=== PATIENT | female | born 1950 | race Caucasian/White ===

== ENCOUNTER 2025-05-01 13:06 | Outpatient (AMB) | payer MEDICARE, SELFPAY ==
--- NOTE | 2025-05-01 13:08 | MHC.OFFVIS ---
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: No Accompanied by: Spouse Allergies adhesive Adverse Reaction (Severe, Verified 05/01/25 13:12) Rash Medication List - Last Reconciled 05/01/25 by Gayle Leoen LPN allopurinol 300 mg PO DAILY apixaban (Eliquis) 5 mg PO BID atorvastatin (Lipitor) 40 mg PO BEDTIME calcitriol 0.5 mcg PO DAILY diltiazem HCl CD (Cardizem CD) 120 mg PO DAILY dulaglutide (Trulicity) 1.5 mg subcut QWEEK empagliflozin (Jardiance) 10 mg PO DAILY fluticasone propion-salmeterol 250-50 mcg/dose (Advair Diskus) 1 inh inhalation BID insulin degludec (Tresiba FlexTouch U-100 insulin) 30 units subcut BEDTIME insulin glargine U-300 conc (Toujeo Max U-300 SoloStar) 20 units subcut BEDTIME insulin lispro (Humalog KwikPen (U-100) Insulin) 1 sliding scale dose subcut USEASDIRECTD levothyroxine 150 mcg PO DAILY lidocaine 4% 2 patches topical DAILY PRN metoprolol succinate ER 25 mg PO BID omeprazole 20 mg PO DAILY pantoprazole 40 mg PO DAILY polyethylene glycol 3350 (Miralax) 17 grams PO DAILY torsemide 60 mg PO DAILY tramadol 25 mg PO Q6H PRN HPI HPI Bilateral SI Pain: Details: History of Present Illness The patient is a 75-year-old female presenting with chronic low back pain. The pain has persisted for 20 years, described as aching and stabbing, with an intensity of 8 to 9 out of 10, exacerbated by movements. She ambulates with a walker. She has undergone knee replacement surgeries and tried various therapies, including physical therapy and chiropractic manipulation, with some relief. Epidural injections have been less effective over time. The premedication for injections provides temporary relief, but the steroid does not sustain the effect. Pain radiates to the buttocks, upper legs, and occasionally the neck. The patient has a history of knee osteoarthritis and a fracture in her left arm from a fall. No imaging was done for her back at the time of the fall. Pain worsens when standing for more than 30 seconds and improves when sitting or reclining. She leans against moncada to alleviate pain while walking. Spinal stenosis is suspected based on symptoms, but no recent imaging has been done. Pain Description - Onset: 20 years ago - Quality: Aching and stabbing - Intensity: 8 to 9 out of 10 - Location: Lower back, radiating to buttocks, upper legs, and occasionally neck - Exacerbating factors: Movement, standing for more than 30 seconds - Relieving factors: Sitting, reclining, leaning against moncada - Interference: Difficulty walking, requires a walker Physical Exam - Musculoskeletal: Tenderness in the lower back region, particularly in the sacroiliac area Pain Management - Affect: Pain significantly impacts daily activities and mobility - Analgesia: Epidural injections with diminishing effectiveness; premedication provides temporary relief - Activities of Daily Living: Difficulty standing and walking, uses a walker, pain alleviated by sitting or reclining [facility] Medical History (Updated 05/01/25 @ 13:59 by Geo Stark MD) Hypertension GERD (gastroesophageal reflux disease) Afib Hyperlipidemia Hypothyroid Diabetes Sacroiliitis Physical Exam Vital Signs: Last Vital Signs Pulse 96 05/01/25 13:10 Resp 16 05/01/25 13:10 BP 100/56 L 05/01/25 13:10 Pulse Ox 96 05/01/25 13:10 Oxygen Delivery Method Room Air 05/01/25 13:10 BMI result Body Mass Index 39.5 Assessment & Plan Assessment & Plan (1) Lumbar spinal stenosis: Code(s): M48.061 - Spinal stenosis, lumbar region without neurogenic claudication Category: Medical (2) Sacroiliitis: Code(s): M46.1 - Sacroiliitis, not elsewhere classified Category: Medical Plan Plan Patient was informed and verbally consented to the use of an ambient scribe for clinic note documentation during this visit. 1. Chronic Low Back Pain - Consider MRI to evaluate for spinal stenosis and other potential causes of pain. - Discussed potential use of nerve stimulator for pain management. - Continue current pain management strategies, including epidural injections, while exploring additional options. 2. Sacroiliac Joint Pain - Evaluate effectiveness of previous SI joint injections and consider further interventions. - Consider imaging to differentiate between SI joint and other sources of pain. 3. Spinal Stenosis (Suspected) - MRI recommended to confirm diagnosis and guide treatment plan. - Discussed potential treatment strategies if spinal stenosis is confirmed. Discussion Notes I discussed with the patient the potential diagnosis of spinal stenosis and the need for an MRI to confirm this. We reviewed the possibility of using a nerve stimulator for pain management, which could provide relief for 6 to 12 months if effective. The patient was informed about the differences in treatment strategies for spinal stenosis versus sacroiliac joint pain. We also discussed the logistics of obtaining an MRI and the potential need for follow-up with Dr. Delgado. The patient deferred the PNS trial option at this time due to her upcoming move to [place] and she would prefer to pursue the nerve stimulator with a physician in [place] instead. Patient Instructions - Schedule an MRI to evaluate the cause of back pain. - Consider the use of a nerve stimulator if recommended by the physician. - Continue current pain management strategies and follow up with Dr. Delgado as needed. Orders: Orders MR lumbar spine wo con 05/01/25 M48.061 - Spinal stenosis, lumbar region without neurogenic claudication Coding Level of Care Code New Pt Level 4 (63994) Diagnoses Lumbar spinal stenosis M48.061 Sacroiliitis M46.1
[2025-05-01 13:10] VITALS: BP 100/56; PULSE 96; RESP 16; O2SAT 96; BMI 39.5
--- OUTSIDE RECORDS SUMMARY | 2025-05-01 15:19 | XMS_ITS | Encounter Summary ---
Author Organization [facility] Address [address] [place] [address] Phone Care Team Providers Care Screen Roller Name Role Phone Cole Ott MD Primary Care Provider + [phone] Gabby Bell MD Primary Care Provider + [phone] Gabby Bell MD Unavailable [phone] Diana Wren OT Unavailable [phone] Diana Wren OT Unavailable [phone] Diana Wren OT Unavailable [phone] Shaji Zeng MD Unavailable [phone] Encounter Details Date Type Department Care Team (Late st Contact Info) Description 01/03/2021 Procedure Pass [facility] [address] [place] [address] Social History Tobacco Use Types Packs/Day Years Used Date Smoking Tobacco: Never Smokeless Tobacco: Never Alcohol Use Standard Drinks/Week Comments Yes 0 (1 standard drink = 0.6 oz pur e alcohol) rare Comments No Sex and Gender Information Value Date Recorded Sex Assigned at Female 11/17/2020 5:48 PM EDT Legal Sex Female 10:00 PM EDT Gender Identity Female 11/17/2020 5:48 PM EDT Sexual Orientation Lesbian or Mohamud 11/28/2020 9: 37 AM EDT 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 [place] [address] 06/12/2025 12:40 PM EDT Office Visit [facility] [address] [facility] 3rd Floor, [address] [place] [address] Goran Swartz MD [address] [place] [address], [address] [address] 08/29/2025 10:20 AM EST Office Visit [facility] [address] [facility] 3rd Floor, [address] [place] [address] Goran Swartz MD [address] [place] [address], [address] [address] 09/18/2025 1:20 PM EST Office Visit [facility] [address] [place] [address] Kit Anthony DO [address] [place] [address] documented as of this encounter Visit Diagnoses Not on filedocumented in this encounter Additional Health Concerns Infection Onset Date Last Indicated Resolved Time 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 Infection Utility 11/01/2013 11/01/2013 10/08/2022 1:42 A M EST CoV-Risk Comment:Per Ambulatory Triage Form 10/01/2021 10/01/202110/11 1:24 AM EST CoV-Risk Comment:Per Ambulatory Triage Form 12/24/2021 12/24/202101/04 1:22 AM EDT CoV-Risk 12/12/2022 12/12/2022 12/23/2022 1:22 AM EDT CoV-Risk Comment:Per note documentation 11/01/2023 11/01/2023 12:21 PM EDT documented as of this encounter Care Teams Screen Roller Relationship Specialty Start Date End Date Cole Ott MD [address] [place] [address] [email or web address] PCP - General Family Medicine 11/17/20 04/22/21 Gabby Bell MD [address] [address] PCP - General Family Medicine 04/23/21 Gabby Bell MD [address] [address] Insurance Assigned Provider 11/28/23 Diana Wren, OT [address] [place] [address] Transitions Senior Director Of StrategyHod Carrier Therapy 03/18/23 Diana Wren, OT [address] [place] [address] Transitions Senior Director Of StrategyHod Carrier Therapy 08/03/23 Diana Wren, OT [address] [place] [address] [email or web address] Transitions Senior Director Of StrategyHod Carrier Therapy 11/02/2307/17 Shaji Zeng MD [address] [facility] [address] [place] [address] Orthopedic Surgery 02/08/25 documented as of this encounter Additional Source Comments The information contained in this document represents components of the legal health record. It is not the complete legal health record.[facility]
--- OUTSIDE RECORDS SUMMARY | 2025-05-01 15:21 | XMS_ITS | Encounter Summary ---
Author Organization [facility] Address [address] [place] [address] [place] [address] Phone Care Team Providers Care Rock Climbing Team Member Name Role Phone Gabby Bell MD Primary Care Provider [phone] Gabby Bell MD Unavailable [phone] Diana Wren OT Unavailable [phone] Diana Wren OT Unavailable [phone] Diana Wren OT Unavailable [phone] Shaji Zeng MD Unavailable [phone] Encounter Details Date Type Department Care Team (Late Contact Info) Description 11/05/2021 Procedure Pass 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 [place] [address] 06/12/2025 12:40 PM EDT Office Visit [facility] [address] [facility] 3rd [facility], [address] [place] [address] Goran Swartz MD 22 [facility], [address] [address] 08/29/2025 10:20 AM EST Office Visit [facility] [address] [facility] 3rd Floor, [address] [place] [address] Goran Swartz MD [address] [place] [address], [address] [address] 09/18/2025 1:20 PM EST Office Visit [facility] [address] [place] [address] Kit Anthony DO 22 [place] [address] documented as of this encounter Visit Diagnoses Not on filedocumented in this encounter Additional Health Concerns Infection Onset Date Last Indicated Resolved Time 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 Infection Utility 11/01/2013 11/01/2013 10/08/2022 1:42 A M EST CoV-Risk Comment:Per Ambulatory Triage Form 12/24/2021 12/24/202101/04 1:22 AM EDT CoV-Risk 12/12/2022 12/12/2022 12/23/2022 1:22 AM EDT CoV-Risk Comment:Per note documentation 11/01/2023 11/01/2023 12:21 PM EDT documented as of this encounter Care Teams Rock Climbing Team Member Relationship Specialty Start Date End Date Gabby Bell MD [address] [address] [email or web address] PCP - General Family Medicine 04/23/21 Gabby Bell MD [address] [address] Insurance Assigned Provider 11/28/23 Diana Wren, OT 30 [place] [address] [email or web address] Transitions Blackjack DealerRefinery Technician Therapy 03/18/23 Diana Wren, OT [address] [place] [address] [email or web address] Transitions Blackjack DealerRefinery Technician Therapy 08/03/23 Diana Wren, OT [address] [place] [address] Transitions Blackjack DealerRefinery Technician Therapy 11/02/2307/17 Shaji Zeng MD [address] [place] [address] Orthopedic Surgery 02/08/25 documented as of this encounter Additional Source Comments The information contained in this document represents components of the legal health record. It is not the complete legal health record.[facility]
--- OUTSIDE RECORDS SUMMARY | 2025-05-01 15:21 | XMS_ITS | Encounter Summary ---
Author Organization [facility] Address [address] [facility] [address] [place] [address] Phone Care Team Providers Care Venture Capitalist Name Role Phone Gabby Bell MD Primary Care Provider [phone] Gabby Bell MD Unavailable [phone] Diana Wren OT Unavailable [phone] Diana Wren OT Unavailable [phone] Diana Wren OT Unavailable [phone] Shaji Zeng MD Unavailable [phone] Reason for Visit * Reason Onset Date Comments Nausea 12/11/2022 Dizziness 12/11/2022 Encounter Details Date Type Department Care Team (Late st Contact Info) Description 12/11/2022 Nurse Triage [facility] Primary Care [address] [facility] [address] [place], [place] [id number] Gabby Bell MD [address] [facility] [address] [place] [address] [email or web address] Nausea; Dizziness Social History Tobacco Use Types Packs/Day Years Used Date Smoking Tobacco: Never Smokeless Tobacco: Never Alcohol Use Standard Drinks/Week Comments Yes 0 (1 standard drink = 0.6 oz pur e alcohol) occ Child or Family Care Answer Date Record ed Do you have problems with on e of the following making it difficult for you to work, study, or receive health care? No 09/03/2022 Education Answer Date Recorded Are you interested in help w ith more adult education (for example, completing high school, GED, job training, learning the Maori language, technical skills, or developing parenting skills)? No 09/03/2022 Food Answer Date Recorded Within the past 6 months we worried whether our food would run out before we got money to buy more. Never True 09/03/2022 Within the past 6 months the food we bought just didn't last and we didn't have enough money to get more. Never True Residential Stability Answer Date Recor ded What is your housing situation today? I have anne sing 09/03/2022 How many times have you move d in the past 12 months? Zero (I did not move) 09/03/2022 Paying for Meds Answer Date Recorded Do you have trouble paying for medicines? No 09/03/2022 Paying Utility Bills Answer Date Record ed Do you have trouble paying your heating or elect ricity bill? No 09/03/2022 Transportation Answer Date Recorded Has the lack of transportati on kept you from medical appointments or from getting medications? No 09/03/2022 Unemployment Answer Date Recorded Are you currently unemployed or working on a part-time or temporary basis, and looking for work? 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 Wish to be (Past 1 Month) No 023 5:58 PM EDT Mary Black, RN 2. Non-Specific Active Suici harvey Thoughts (Past 1 Month) No 12/12/2022 5:58 PM EDT Mary Black , RN 6. Suicidal Behavior (Lifetime) No 5:58 PM EDT Mary Black RN documented as of this encounter Progress Notes * Symone Agrawal RN - 12/15/2022 4:04 PM EDT Attempted to reach patient by phone. No answer. Left voicemail for patient to return phone call to office. Patient is scheduled to see Dr. Jefferson tomorrow, 12/16/22. * Gabby Bell MD - 12/15/2022 7:49 AM EDT Merline went to the ED and was told all her labs were normal. Her BNP was 3xULN which I realize is not uncommon for her but she goes in and out of acute CHF and I wonder if she may have been experiencing an exacerbation of her heart failure. Would you please call today to a) see how she is doing b)make sure she checks in with her railway signal technician re: cardioEliu vieyra and c) offer her an appointment here if indicated? Thank you * Gabby Bell MD - 12/12/2022 3:50 PM EDT Thank you!! * Sarah Carrasco RN - 12/12/2022 3:38 PM EDT Called pt back. Pt was able to take blood sugar and reports it was 108. Advised pt go to ED if still feeling unwell per PCP recommendation. Pt is open to going to ED. Will wait for spouse to get backand will head to ED within the next hour. * Gabby Bell MD - 12/12/2022 10:17 AM EDT Thank you. If you don't hear from her by early afternoon, would you please call again? She has *many* reasons she could be ill, and if she feels she likely needs to be hospitalized then is NOT theplace for her to be evaluated but rather the ED. * Sarah Carrasco RN - 12/12/2022 9:56 AM EDT Spoke to pt regarding ongoing nausea since Friday 12/08. Reports malaise, nausea, no energy, haven't eaten in days. Pt states she is trying to stay hydrated and is not vomiting. Gallbladder removed 6 weeks ago, in ED 2 weeks ago for back pain. Advised pt to test blood sugar while on the phone withnurse. She was unable to find her kit. Advised pt go to to have blood sugar tested. Pt states she does not feel she will make it through the weekend without being hospitalized. Advised pt go to immediately. Pt wants to be seen in office today. Advised pt that no appts available. Pt states shewill not go to and will call back when she finds her test kit with blood sugar. Will update PCP. Nurse Triage Encounter Note Reason for Triage Merline Amor contacted office for Nausea,Dizziness Call Disposition Schedule Visit With 3 Business Days Patient/caregiver understands and will follow disposition: Patient/caregiver understands and will follow care advice: Disposition Comments: Protocols used: Care Advice Given Care Advice No Care Advice given for this encounter. Patient will call back with additional questions or if symptoms change or worsen Sarah Carrasco RN Reason for Disposition and Assessment Reason for Disposition Nausea lasts > 1 week Answer Assessment - Initial Assessment Questions 1. NAUSEA SEVERITY: How bad is the nausea? (e.g., mild, moderate, severe; dehydration, weight loss) - MILD: loss of appetite without change in eating habits - MODERATE: decreased oral intake without significant weight loss, dehydration, or malnutrition - SEVERE: inadequate caloric or fluid intake, significant weight loss, symptoms of dehydration Trying to stay hydrated, haven't eaten, not vomiting, feels as though gut is indistress 2. ONSET: When did the nausea begin? Friday 12/08 3. VOMITING: Any vomiting? If Yes, ask: How many times today? No vomiting 4. RECURRENT SYMPTOM: Have you had nausea before? If Yes, ask: When was the last time? What happened that time? Has happened before but feels nauseous intermittently 5. CAUSE: What do you think is causing the nausea? Galbladder removed 6 weeks ago, at [facility] 2 weeks ago for severe pain in back and right side- CT scan/ labs - unknown dx, Morphine for pain, D/c 6. : Is there any chance you are ? (e.g., unprotected intercourse, missed control pill, broken condom) NA Protocols used: [id number] * Bear Knapp - 12/11/2022 3:18 PM EDT Pt calling back to talk with nurse in regards to on going nausea * Ronda Tavarez - 12/11/2022 9:52 AM EDT Merline called to schedule an appointment. Merline stated she has been experiencing GI issues, nausea, dizziness for the past 3 days. Please contact and advise. documented in this encounter Plan of Treatment Upcoming Encounters Date Type Department Care Team (Late st Contact Info) Description 05/25/2025 4:30 PM EDT Office Visit [facility] Rheumatology [address] [place] [address] Emily Ireland MD [address] [facility], [address] [place] [address] [email or web address] 05/31/2025 10:20 AM EDT Office Visit [facility] [address] [facility] [address] [place] [address] Gabby Bell MD [address] [address] 06/12/2025 12:40 PM EDT Office Visit [facility] [address], [address] [place] [address] Goran Swartz MD [address] [place] [address] 08/29/2025 10:20 AM EST Office Visit [address], [address] [address] Goran Swartz MD [address] [place] [address] 09/18/2025 1:20 PM EST Office Visit [facility] [address] [place] [address] Kit Anthony DO [address] [place] [address] documented as of this encounter Visit Diagnoses Not on filedocumented in this encounter Additional Health Concerns Infection Onset Date Last Indicated Resolved Time CoV-Risk 12/12/2022 12/12/2022 12/23/2022 1:22 AM EDT CoV-Risk Comment:Per note documentation 11/01/2023 11/01/2023 12:21 PM EDT documented as of this encounter Care Teams Venture Capitalist Relationship Specialty Start Date End Date Gabby Bell MD [address] [address] PCP - General Family Medicine 04/23/21 Gabby Bell MD [address] [place] [address], [place] [address] Insurance Assigned Provider 11/28/23 Diana Wren, OT 30 [place] [address] Transitions Photoengraving Proofer ApprenticeMachine Set Up Therapy 03/18/23 Diana Wren, OT 30 [place] [address] Transitions Photoengraving Proofer ApprenticeMachine Set Up Therapy 08/03/23 Diana Wren, OT [address] [place] [address] Transitions Photoengraving Proofer ApprenticeMachine Set Up Therapy 11/02/2307/17 Shaji Zeng MD [facility] [address] [facility] [address] [place] [address] Orthopedic Surgery 02/08/25 documented as of this encounter Additional Source Comments The information contained in this document represents components of the legal health record. It is not the complete legal health record.[facility]
--- OUTSIDE RECORDS SUMMARY | 2025-05-01 15:21 | XMS_ITS | Encounter Summary ---
Author Organization [facility] Address [address] [place] [address] [place] [address] Phone Care Team Providers Care Supervisor Tan Room Name Role Phone Gabby Bell MD Primary Care Provider [phone] Gabby Bell MD Unavailable [phone] Diana Wren OT Unavailable [phone] Diana Wren OT Unavailable [phone] Diana Wren OT Unavailable [phone] Shaji Zeng MD Unavailable [phone] Encounter Details Date Type Department Care Team (Late st Contact Info) Description 11/04/2021 Ancillary Orders [facility],Outside Imaging [address] [place] [address] System, Provider Not In, PhD Partners [address] [address] Social History Tobacco Use Types Packs/Day Years [...] 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 Wish to be (Past 1 Month) No 022 8:19 PM EDT Lucho Pagan RN 2. Non-Specific Active Suici harvey Thoughts (Past 1 Month) No 11/04/2021 8:19 PM EDT Joseph Pagan RN 6. Suicidal Behavior (Lifetime) No 8:19 PM EDT Lucho Pagan RN documented as of this encounter Plan of Treatment Upcoming Encounters Date Type Department Care Team (Late st Contact Info) Description 05/25/2025 4:30 PM EDT Office Visit [facility] Rheumatology [address] [place] [address] Emily Ireland MD 22 [facility], [address] [place] [address] [email or web address] 05/31/2025 10:20 AM EDT Office Visit [facility] [place] [facility] 15 [facility] [address] [place] [address] Gabby Bell MD 15 [facility] [address] [place] [address] 06/12/2025 12:40 PM EDT Office Visit [facility] [address] Floor, [address] [place] [address] Goran Swartz MD 22 [facility], [address] [place] [address] 08/29/2025 10:20 AM EST Office Visit [facility] [address], [address] [place] [address] Goran Swartz MD 22 [facility], [address] [place] [address] 09/18/2025 1:20 PM EST Office Visit [facility] 22 [place] [address] Kit Anthony DO [address] [place] [address] [email or web address] documented as of this encounter Results * MRI Brain Outside (No Interpretation) (04/02/2017 12:00 AM EDT) Narrative SYSTEMGENERATED, DOCUMENTATION - 11/04/2021 1:58 PM EDT This study is for PACS storage only and not for interpretation. us Provider Not In System PhD IMG OUTSIDE IMAGING W /OUT INTERPRETATION Final Result documented in this encounter Visit Diagnoses Not on filedocumented [...] documented as of this encounter Care Teams Supervisor Tan Room Relationship Specialty Start Date End Date Gabby Bell MD [address] [address] [email or web address] PCP - General Family Medicine 04/23/21 Gabby Bell MD 15 [facility] 201 [place] [address] Insurance Assigned Provider 11/28/23 Diana Wren, OT 30 [place] [address] [email or web address] Transitions Market Research ManagerTable Games Dual Rate Supervisor Therapy 03/18/23 Diana Wren, OT 30 [place] [address] [email or web address] Transitions Market Research ManagerTable Games Dual Rate Supervisor Therapy 08/03/23 Diana Wren, OT 30 [place] [address] [email or web address] Transitions Market Research ManagerTable Games Dual Rate Supervisor Therapy 11/02/2307/17 Shaji Zeng MD [address] [place], [place] [address]anitra Mili [address] [address] Orthopedic Surgery 02/08/25 documented as of this encounter Additional Source Comments The information contained in this document represents components of the legal health record. It is not the complete legal health record.[facility]
--- OUTSIDE RECORDS SUMMARY | 2025-05-01 15:21 | XMS_ITS | Encounter Summary ---
Author Organization [facility] Address [address] [place] [address] [place] [address] Phone Care Team Providers Care Risk Advisor Name Role Phone Gabby Bell MD Primary Care Provider [phone] Gabby Bell MD Unavailable [phone] Diana Wren OT Unavailable [phone] Diana Wren OT Unavailable [phone] Diana Wren OT Unavailable [phone] Shaji Zeng MD Unavailable [phone] Encounter Details Date Type Department Care Team (Late st Contact Info) Description 11/04/2021 Ancillary Orders ,Outside Imaging 30 [place] [address] System, Provider Not In, PhD Partners [address] [address] Social History Tobacco Use Types Packs/Day Years [...] 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 file documented as of this encounter Functional Status * Calculated C-SSRS Risk Score (Lifetime/Recent) Answer Date of Assessment Author No Risk Indicated 11/04/2021 8:19 PM EDT Lucho Pagan RN * [place] Suicide Severity Rating Scale (Screener/Recent Self-Report) Question [...] Description 05/25/2025 4:30 PM EDT Office Visit [facility] Rheumatology [address] [place] [address] Emily Ireland MD 22 [facility], [address] [place] [address] [email or web address] 05/31/2025 10:20 AM EDT Office Visit [facility] [place] [facility] 15 [facility] [address] [place] [address] Gabby Bell MD 15 [facility] [address] [place] [address] 06/12/2025 12:40 PM EDT Office Visit [facility] [address] Floor, [address] [place] [address] Goran Swartz MD 22 [facility], [address] [place] [address] 08/29/2025 10:20 AM EST Office Visit [facility] [address], [address] [place] [address] Goran Swartz MD 22 [facility], [address] [place] [address] 09/18/2025 1:20 PM EST Office Visit [facility] 22 [place] [address] Kit Anthony DO [address] [place] [address] [email or web address] documented as of this encounter Results * MRI Brain Outside (No Interpretation) (06/04/2015 12:00 AM EDT) Narrative SYSTEMGENERATED, DOCUMENTATION - 11/04/2021 2:00 PM EDT This study is for PACS [...] documented as of this encounter Care Teams Risk Advisor Relationship Specialty Start Date End Date Gabby Bell MD [address] [address] [email or web address] PCP - General Family Medicine 04/23/21 Gabby Bell MD 15 [facility] 201 [place] [address] Insurance Assigned Provider 11/28/23 Diana Wren, OT 30 [place] [address] [email or web address] Transitions Atmospheric Physics ProfessorFruit Farmworker Therapy 03/18/23 Diana Wren, OT 30 [place] [address] [email or web address] Transitions Atmospheric Physics ProfessorFruit Farmworker Therapy 08/03/23 Diana Wren, OT 30 [place] [address] [email or web address] Transitions Atmospheric Physics ProfessorFruit Farmworker Therapy 11/02/2307/17 Shaji Zeng MD [address] [place], [place] [address]anitra Mili [address] [address] Orthopedic Surgery 02/08/25 documented as of this encounter Additional Source Comments The information contained in this document represents components of the legal health record. It is not the complete legal health record.[facility]
--- OUTSIDE RECORDS SUMMARY | 2025-05-01 15:21 | XMS_ITS | Encounter Summary ---
Author Organization [facility] Address [address] [place] [address] [place] [address] Phone Care Team Providers Care Combat Control Manager Name Role Phone Gabby Bell MD Primary Care Provider [phone] Gabby Bell MD Unavailable [phone] Diana Wren OT Unavailable [phone] Diana Wren OT Unavailable [phone] Diana Wren OT Unavailable [phone] Shaji Zeng MD Unavailable [phone] Encounter Details Date Type Department Care Team (Late st Contact Info) Description 07/01/2022 Procedure Pass Non-Invasive Cardiology [address] [place] [address] Social History Tobacco Use Types Packs/Day Years [...] 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 [place] [address] 06/12/2025 12:40 PM EDT Office Visit [facility] 22 [facility] 3rd Floor, [address] [place] [address] Goran Swartz MD 22 [facility], [address] [address] 08/29/2025 10:20 AM EST Office Visit [facility] [address] 3[address] Floor, [address] [place] [address] Goran Swartz MD [address] [place] [address], [address] [address] 09/18/2025 1:20 PM EST Office Visit [facility] 22 [place] [address] Kit Anthony DO 22 [place] [address] documented as of this encounter Visit Diagnoses Not on filedocumented in this encounter Additional Health Concerns Infection Onset Date Last Indicated Resolved Time 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 Infection Utility 11/01/2013 11/01/2013 10/08/2022 1:42 A M EST CoV-Risk 12/12/2022 12/12/2022 12/23/2022 1:22 AM EDT CoV-Risk Comment:Per note documentation 11/01/2023 11/01/2023 12:21 PM EDT documented as of this encounter Care Teams Combat Control Manager Relationship Specialty Start Date End Date Gabby Bell MD [address] [address] [email or web address] PCP - General Family Medicine 04/23/21 Gabby Bell MD [address] [address] Insurance Assigned Provider 11/28/23 Diana Wren, OT 30 [place] [address] [email or web address] Transitions Taping ForemanMatrix Repairer Therapy 03/18/23 Diana Wren, OT 30 [place] [address] [email or web address] Transitions Taping ForemanMatrix Repairer Therapy 08/03/23 Diana Wren, OT 30 [place] [address] [email or web address] Transitions Taping ForemanMatrix Repairer Therapy 11/02/2307/17 Shaji Zeng MD [facility] [employer] Mili [address] [address] Orthopedic Surgery 02/08/25 documented as of this encounter Additional Source Comments The information contained in this document represents components of the legal health record. It is not the complete legal health record.[facility]
--- OUTSIDE RECORDS SUMMARY | 2025-05-01 15:21 | XMS_ITS | Encounter Summary ---
Author Organization [facility] Address [address] [facility] [address] [place] [address] Phone Care Team Providers Care Kilnman Name Role Phone Gabby Bell MD Primary Care Provider [phone] Gabby Bell MD Unavailable [phone] Diana Wren OT Unavailable [phone] Diana Wren OT Unavailable [phone] Diana Wren OT Unavailable [phone] Shaji Zeng MD Unavailable [phone] Encounter Details Date Type Department Care Team (Latest Contact Info) Description 11/14/2021 Transcribe Orders [facility] 30 [place] [address] Kodi Hewitt MD 15 [facility] [address] [place], [place] [address] Stage 3b chronic kidney disease (Primary Dx) Social History Tobacco Use Types Packs/Day Years [...] 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 [address] [place] [address] Gabby Bell MD 15 [facility] [address] [place] [address] 06/12/2025 12:40 PM EDT Office Visit [facility] [address], [address] [place] [address] Gorna Swartz MD [address] [place] [address] 08/29/2025 10:20 AM EST Office Visit [facility] [address] 3rd [facility], [address] [address] Goran Swartz MD 22 [facility], [address] [address] 09/18/2025 1:20 PM EST Office Visit [facility] [address] [place] [address] Kit Anthony DO 22 [place] [address] documented as of this encounter Results * (ABNORMAL) TOTAL PROTEIN CREATININE RATIO, RANDOM URINE (11/14/2021 3:08 PM EDT) Pathologist [facility] URINE TOTAL PROTEIN 21.0 mg/dL [facility] URINE CREATININE 104 mg/dL [facility] URINE TP CRE RATIO 0.20(H) 0 - 0.19 [facility] Urine (Urine) 11/14/2021 3:0 8 PM EDT 11/14/2021 3:13 PM EDT us Kodi Hewitt MD URINE ORDERABLES Final Result Performing Organization Address City/[facility]/ZIP Co de Phone Number [address] [address] * (ABNORMAL) Parathyroid hormone (PTH) (11/14/2021 3:08 PM EDT) Pathologist [facility] PARATHYROID HORMONE 3(L) 15 - 65 pg/mL [facility] Blood 11/14/2021 3:08 PM EDT 11/14/2021 3:13 PM EDT us Kodi Hewitt MD LAB BLOOD ORDERABLES Final Resul t Performing Organization Address [facility]/ZIP Co de Phone Number [address] [address] * 25-OH vitamin D (11/14/2021 3:08 PM EDT) Pathologist [facility] 25 OH VIT D (TOTAL) 33 30 - 60 ng/mL [facility] Blood 11/14/2021 3:08 PM EDT 11/14/2021 3:14 PM EDT us Kodi Hewitt MD LAB BLOOD ORDERABLES Final Resul t Performing Organization Address [facility]/ZIP Co de Phone Number [address] [address] * (ABNORMAL) Renal panel (11/14/2021 3:08 PM EDT) SODIUM 137 133 - 146 mmol/L [facility] POTASSIUM 4.3 3.3 - 5.1 mmol/L [facility] CHLORIDE 101 96 - 108 mmol/L [facility] CO2 23 21 - 35 mmol/L [facility] GLUCOSE 108(H) 70 - 99 mg/dL [facility] BUN 24(H) 6 - 19 mg/dL [facility] CREATININE 1.10 0.5 - 1.5 mg/dL [facility] CALCIUM 10.1 8.4 - 10.3 mg/dL [facility] PHOSPHORUS 3.6 2.7 - 4.5 mg/dL [facility] ALBUMIN 3.7(L) 3.9 - 4.8 g/dL [facility] EGFR 54(L) >59 mL/min/1.7 3m2 [facility] Comment:Estimated glomerular filtration rate calculated using the CKD-EPI refit equation. 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 Infection Utility 11/01/2013 11/01/2013 10/08/2022 1:42 A M EST CoV-Risk Comment:Per Ambulatory Triage Form 12/24/2021 12/24/202101/04 1:22 AM EDT CoV-Risk 12/12/2022 12/12/2022 12/23/2022 1:22 AM EDT CoV-Risk Comment:Per note documentation 11/01/2023 11/01/2023 12:21 PM EDT documented as of this encounter Care Teams [place] Relationship Specialty Start Date End Date Gabby Bell MD [address] [place] [address] PCP - General Family Medicine 04/23/21 Gabby Bell MD [address] [address] Insurance Assigned Provider 11/28/23 Diana Wren, OT 30 [place] [address] Transitions Child Center AssistantCoating Mixer Tender Therapy 03/18/23 Diana Wren, OT 30 [place] [address] Transitions Child Center AssistantCoating Mixer Tender Therapy 08/03/23 Diana Wren, OT 30 [place] [address] Transitions Child Center AssistantCoating Mixer Tender Therapy 11/02/2307/17 Shaji Zeng MD [facility] Carolina Garces [address] [address] Orthopedic Surgery 02/08/25 documented as of this encounter Additional Source Comments The information contained in this document represents components of the legal health record. It is not the complete legal health record.[facility]
--- OUTSIDE RECORDS SUMMARY | 2025-05-01 15:21 | XMS_ITS | Encounter Summary ---
Author Organization [facility] Address [address] [place] [address] [place] [address] Phone Care Team Providers Care Physician Scientist Name Role Phone Gabby Bell MD Primary Care Provider [phone] Gabby Bell MD Unavailable [phone] Diana Wren OT Unavailable [phone] Diana Wren OT Unavailable [phone] Diana Wren OT Unavailable [phone] Shaji Zeng MD Unavailable [phone] Encounter Details Date Type Department Care Team (Late st Contact Info) Description 10/01/2021 Procedure Pass Non-Invasive Cardiology [address] [place] [address] Social History Tobacco Use Types Packs/Day Years [...] 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 [place] [address] 06/12/2025 12:40 PM EDT Office Visit [facility] 22 [facility] 3rd Floor, [address] [place] [address] Goran Swartz MD 22 [facility], [address] [address] 08/29/2025 10:20 AM EST Office Visit [facility] [address] 3[address] Floor, [address] [place] [address] Goran Swartz MD [address] [place] [address], [address] [address] 09/18/2025 1:20 PM EST Office Visit [facility] 22 [place] [address] Kit Anthony DO 22 [place] [address] documented as of this encounter Visit Diagnoses [...] documented as of this encounter Care Teams Physician Scientist Relationship Specialty Start Date End Date Gabby Bell MD [address] [address] [email or web address] PCP - General Family Medicine 04/23/21 Gabby Bell MD [address] [address] [email or web address] Insurance Assigned Provider 11/28/23 Diana Wren, OT 30 [place] [address] [email or web address] Transitions Line BuilderBoilermaker Welder Therapy 03/18/23 Diana Wren, OT [address] [place] [address] [email or web address] Transitions Line BuilderBoilermaker Welder Therapy 08/03/23 Diana Wren, OT [address] [place] [address] Transitions Line BuilderBoilermaker Welder Therapy 11/02/2307/17 Shaji Zeng MD [address] [place], [place] [address]anitra Mili [address] [address] Orthopedic Surgery 02/08/25 documented as of this encounter Additional Source Comments The information contained in this document represents components of the legal health record. It is not the complete legal health record.[facility]
--- OUTSIDE RECORDS SUMMARY | 2025-05-01 15:23 | XMS_ITS | Encounter Summary ---
Author Organization [facility] Address [address] [place] [address] Phone Care Team Providers Care Lymphedema Therapist Name Role Phone Gabby Bell MD Primary Care Provider [phone] Gabby Bell MD Unavailable [phone] Diana Wren OT Unavailable [phone] Diana Wren OT Unavailable [phone] Diana Wren OT Unavailable [phone] Shaji Zeng MD Unavailable [phone] Reason for Referral * MRI/CAT Scan - Closed Specialty Diagnoses / Procedures Referred By Anil caba Referred To Contact Radiology Diagnoses Other microscopic hematuria Calculus of kidney Procedures CT Abdomen/Pelvis Mariza Ojeda PA Phone: tel: fax: [email or web address] Referral ID Status Reason Start Date Expiration Date Visits Re quested Visits Authorized [id number] Closed 11/27/2021 11/27/2022 1 1 Encounter Details Date Type Department Care Team (Latest Contact Info) Description 11/27/2021 Transcribe Orders Virtual Department 30 [place] [address] Mariza Ojeda PA [address] [address] Other microscopic hematuria (Primary Dx); Calculus of kidney Social History Tobacco Use Types Packs/Day Years [...] 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 [place] [address] 06/12/2025 12:40 PM EDT Office Visit [facility] [address], [address] [place] [address] Goran Swartz MD 22 [facility], [address] [place] [address] 08/29/2025 10:20 AM EST Office Visit [facility] [address], [address] [place] [address] Goran Swartz MD 22 [facility], [address] [place] [address] 09/18/2025 1:20 PM EST Office Visit [facility] [address] [place] [address] Kit Anthony DO [address] [place] [address] [email or web address] documented as of this encounter Results * CT ABDOMEN/PELVIS WITHOUT CONTRAST (12/12/2021 3:46 PM EDT) Anatomical Region Laterality Modality Abdomen, Pelvis Computed Tomogra phy 12/12/2021 9:47 PM EDT Impressions 12/12/2021 9:57 PM EDT Calcifications in the renal sinuses likely almost entirely reflect vascular calcification, though this reduces sensitivity for tiny renal stones. Allowing for this, there may be a 6 cm nonobstructing stone in the left midpole. No hydronephrosis. Narrative 12/12/2021 9:[address] ABDOMEN/PELVIS WITHOUT CONTRAST TECHNIQUE: Multidetector-row CT of the abdomen and pelvis was performed without intravenous contrast using tailored dose modulation techniques. Images were reconstructed in the axial, coronal, and sagittal planes. COMPARISON: None ABSENCE OF INTRAVENOUS CONTRAST DECREASES SENSITIVITY FOR DETECTION OF FOCAL LESIONS AND VASCULAR PATHOLOGY. FINDINGS: A portion of the lateral most aspect of the right hemiabdomen is not included in the [id number] Lower Chest: Dense mitral annular calcifications. Partially imaged left atrial enlargement. Moderate bronchial wall thickening in the imaged lower lung zones Liver: Normal. No focal lesions by noncontrast CT. Biliary: Cholelithiasis. No biliary ductal dilatation. Spleen: No splenomegaly. Punctate splenic granulomata. Pancreas: Normal. No masses or ductal dilatation. Adrenal Glands: Normal. No nodules. Kidneys/Ureters: No evidence of solid mass or hydronephrosis. Extensive vascular calcifications a partially obscured tiny renal stones. Allowing for this, there may be a 6 mm nonobstructing stone in the left midpole (6:54, 4:78). Bowel: Normal. No dilatation or wall thickening. Peritoneum/Retroperitoneum: Normal. No masses, pneumoperitoneum, or fluid. Lymph Nodes: Normal. No lymphadenopathy. Pelvic Organs/Bladder: Normal. No mass. Vessels: Extensive vascular calcification. No abdominal aortic aneurysm. Bones/Soft Tissues: Degenerative changes. No destructive osseous lesions. Procedure Note Darrick Amaya MD - 12/12/2021 CT ABDOMEN/PELVIS WITHOUT CONTRAST TECHNIQUE: Multidetector-row CT of the abdomen and pelvis was performedwithout intravenous contrast using tailored dose modulation techniques.Images were reconstructed in the axial, coronal, and sagittal planes. COMPARISON: None ABSENCE OF INTRAVENOUS CONTRAST DECREASES SENSITIVITY FOR DETECTION OFFOCAL LESIONS AND VASCULAR PATHOLOGY. FINDINGS: A portion of the lateral most aspect of the right hemiabdomen is notincluded in the [id number] Lower Chest: Dense mitral annular calcifications. Partially imaged leftatrial enlargement. Moderate bronchial wall thickening in the imaged lowerlung zones Liver: Normal. No focal lesions by noncontrast CT. Biliary: Cholelithiasis. No biliary ductal dilatation. Spleen: No splenomegaly. Punctate splenic granulomata. Pancreas: Normal. No masses or ductal dilatation. Adrenal Glands: Normal. No nodules. Kidneys/Ureters: No evidence of solid mass or hydronephrosis. Extensivevascular calcifications a partially obscured tiny renal stones. Allowingfor this, there may be a 6 mm nonobstructing stone in the left midpole(6:54, 4:78). Bowel: Normal. No dilatation or wall thickening. Peritoneum/Retroperitoneum: Normal. No masses, pneumoperitoneum, orfluid. Lymph Nodes: Normal. No lymphadenopathy. Pelvic Organs/Bladder: Normal. No mass. Vessels: Extensive vascular calcification. No abdominal aortic aneurysm. Bones/Soft Tissues: Degenerative changes. No destructive osseouslesions. IMPRESSION: Calcifications in the renal sinuses likely almost entirely reflectvascular calcification, though this reduces sensitivity for tiny renalstones. Allowing for this, there may be a 6 cm nonobstructing stone in theleft midpole. No hydronephrosis. 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 Infection Utility 11/01/2013 11/01/2013 10/08/2022 1:42 A M EST CoV-Risk Comment:Per Ambulatory Triage Form 12/24/2021 12/24/202101/04 1:22 AM EDT CoV-Risk 12/12/2022 12/12/2022 12/23/2022 1:22 AM EDT CoV-Risk Comment:Per note documentation 11/01/2023 11/01/2023 12:21 PM EDT documented as of this encounter Care Teams Lymphedema Therapist Relationship Specialty Start Date End Date Gabby Bell MD [address] [address] PCP - General Family Medicine 04/23/21 Gabby Bell MD [address] [address] Insurance Assigned Provider 11/28/23 Diana Wren, OT 30 [place] [address] Transitions Inseam LevelerSocial Research Assistant Therapy 03/18/23 Diana Wren, OT 30 [place] [address] Transitions Inseam LevelerSocial Research Assistant Therapy 08/03/23 Diana Wren, OT 30 [place] [address] [email or web address] Transitions Inseam LevelerSocial Research Assistant Therapy 11/02/2307/17 Shaji Zeng MD [address] Carolina Garces [address] [address] Orthopedic Surgery 02/08/25 documented as of this encounter Additional Source Comments The information contained in this document represents components of the legal health record. It is not the complete legal health record.[facility]
--- OUTSIDE RECORDS SUMMARY | 2025-05-01 15:25 | XMS_ITS | Encounter Summary ---
Author Organization [facility] Address [address] [place] [address] [place] [address] Phone Care Team Providers Care Ice Guard Inspector Name Role Phone Gabby Bell MD Primary Care Provider [phone] Gabby Bell MD Unavailable [phone] Diana Wren OT Unavailable [phone] Diana Wren OT Unavailable [phone] Diana Wren OT Unavailable [phone] Shaji Zeng MD Unavailable [phone] Encounter Details Date Type Department Care Team (Late Contact Info) Description 11/27/2021 Procedure Pass [facility], Ct Scan - [address] [id number] Social History Tobacco Use Types Packs/Day Years [...] Industry Job Start Date Job End Date [employer] Not on file Not on file Not on file documented as of this encounter Plan of Treatment Upcoming Encounters Date Type Department Care Team (Late Contact Info) Description 05/25/2025 4:30 PM EDT Office Visit [facility] Rheumatology 22 [place] [address] Emily Ireland MD 22 [facility], [address] [place] [address] [email or web address] 05/31/2025 10:20 AM EDT Office Visit [facility] [place] [facility] 15 [facility] [address] [place] [address] Gabby Bell MD 15 [facility] [address] [place] [address] 06/12/2025 12:40 PM EDT Office Visit [facility] 22 [facility] 3rd [facility], [address] [place] [address] Goran Swartz MD 22 [facility], [address] [address] 08/29/2025 10:20 AM EST Office Visit [facility] 22 [facility] 3rd Floor, [address] [place] [address] Goran Swartz MD [address] [place] [address], [address] [address] 09/18/2025 1:20 PM EST Office Visit [facility] [address] [place] [address] Kit Anthony DO 22 [place] [address] documented as of this encounter Visit Diagnoses [...] documented as of this encounter Care Teams Ice Guard Inspector Relationship Specialty Start Date End Date Gabby Bell MD [address] [address] [email or web address] PCP - General Family Medicine 04/23/21 Gabby Bell MD [address] [address] Insurance Assigned Provider 11/28/23 Diana Wren, OT 30 [place] [address] [email or web address] Transitions Destaticizer FeederChronic Disease Epidemiologist Therapy 03/18/23 Diana Wren, OT 30 [place] [address] [email or web address] Transitions Destaticizer FeederChronic Disease Epidemiologist Therapy 08/03/23 Diana Wren, OT 30 [place] [address] Transitions Destaticizer FeederChronic Disease Epidemiologist Therapy 11/02/2307/17 Shaji Zeng MD [address] [place] [address] Orthopedic Surgery 02/08/25 documented as of this encounter Additional Source Comments The information contained in this document represents components of the legal health record. It is not the complete legal health record.[facility]
--- OUTSIDE RECORDS SUMMARY | 2025-05-01 15:26 | XMS_ITS | Encounter Summary ---
Author Organization [facility] Address [address] [facility] [address] [place] [address] Phone Care Team Providers Care Technology Professional Name Role Phone Gabby Bell MD Primary Care Provider [phone] Gabby Bell MD Unavailable [phone] Diana Wren OT Unavailable [phone] Diana Wren OT Unavailable [phone] Diana Wren OT Unavailable [phone] Shaji Zeng MD Unavailable [phone] Encounter Details Date Type Department Care Team (Latest Contact Info) Description 01/29/2023 Transcribe Orders Virtual Department 30 [place] [address] Libby Jara MD [address] [place] [phone] [email or web address] Calculus of kidney (Primary Dx) Social History Tobacco Use Types [...] high school, GED, job training, learning the Lao language, technical skills, or developing parenting skills)? [...] basis, and looking for work? No 09/03/2022 Digital Access Answer Date Recorded No 01/13/2023 No 01/13/2023 Reliable internet access at home? Not on file 01/13/2023 Device with a working camera? Not on file Comments No Sex and Gender Information Value Date Recorded Sex Assigned at Female 11/17/2020 5:48 PM EDT Legal Sex Female 10:00 PM EDT Gender Identity Female 11/17/2020 5:48 PM EDT Sexual Orientation Lesbian or Mohamud 11/28/2020 9: 37 AM EDT Occupation Industry Job Start Date Job End Date [employer] Not on file Not on file Not on file documented as of this encounter Plan of Treatment Upcoming Encounters Date Type Department Care Team (Late st Contact Info) Description 05/25/2025 4:30 PM EDT Office Visit [facility] Rheumatology [address] [place] [address] Emily Ireland MD 22 [facility], [address] [place] [address] [email or web address] 05/31/2025 10:20 AM EDT Office Visit [facility] [address] [facility] [address] [place] [address] Gabby Bell MD 15 [facility] [address] [place] [address] 06/12/2025 12:40 PM EDT Office Visit [facility] [address] [facility] [address] [facility], [address] [place] [address] Goran Swartz MD [address] [address] 08/29/2025 10:20 AM EST Office Visit [facility] [address], [address] [address] Goran Swartz MD 22 [facility], [address] [address] 09/18/2025 1:20 PM EST Office Visit [facility] 22 [place] [address] Kit Anthony DO 22 [place] [address] documented as of this encounter Visit Diagnoses Diagnosis Calculus of kidney- Primary documented in this encounter Additional Health Concerns Infection Onset Date Last Indicated Resolved Time CoV-Risk Comment:Per note documentation 11/01/2023 11/01/2023 12:21 PM EDT documented as of this encounter Care Teams Technology Professional Relationship Specialty Start Date End Date Gabby Bell MD 15 [facility]. [address] [place] [address] PCP - General Family Medicine 04/23/21 Gabby Blel MD 15 [facility] 201 [place] [address] Insurance Assigned Provider 11/28/23 Diana Wren, OT 30 [place] [address] [email or web address] Transitions Sheet Rock Taper HelperBig Data Admin Therapy 03/18/23 Diana Wren, OT 30 [place] [address] [email or web address] Transitions Sheet Rock Taper HelperBig Data Admin Therapy 08/03/23 Diana Wren, OT 30 [place] [address] Transitions Sheet Rock Taper HelperBig Data Admin Therapy 11/02/2307/17 Shaji Zeng MD [address] [place], [place] [address] [address] Orthopedic Surgery 02/08/25 documented as of this encounter Additional Source Comments The information contained in this document represents components of the legal health record. It is not the complete legal health record.[facility]
--- OUTSIDE RECORDS SUMMARY | 2025-05-01 15:26 | XMS_ITS | Patient Health Record ---
Author Organization [facility] Address [address] [address] Support Name Relationship Address Phone Merline Amor Guarantor Unknown [phone] Reason For Referral No Information Plan Of Treatment No Information
--- OUTSIDE RECORDS SUMMARY | 2025-05-01 15:26 | XMS_ITS | Encounter Summary ---
Author Organization [facility] Address [address] [facility] [address] [place] [address] Phone Care Team Providers Care Ultrasound Sonographer Name Role Phone Gabby Bell MD Primary Care Provider [phone] Gabby Bell MD Unavailable [phone] Shaji Zeng MD Unavailable [phone] Encounter Details Date Type Department Care Team (Latest Contact Info) Description 05/27/2024 Transcribe Orders [facility] 30 [place] [address] Kodi Hewitt MD 15 [facility] [address] [place] [address] Stage 3b chronic kidney disease (Primary Dx) Social History Tobacco Use Types Packs/Day Years Used Date Smoking Tobacco: Never Smokeless Tobacco: Never Alcohol Use Standard Drinks/Week Comments Not Currently 0 (1 standard drink = 0.6 oz [...] high school, GED, job training, learning the Romanian language, technical skills, or developing parenting skills)? [...] your housing situation today? I have anne matamoros 09/03/2022 How many times have you move [...] with a working camera? Not on file Intimate Partner Violence Answer Date R ecorded Are you denied basic needs s uch as food, clothing, or medical care? No 11/01/2023 In the past 12 months have y ou been in a relationship with a person who hurts, threatens, or tries to control you? No 11/01/2023 Are you denied basic needs s uch as food, clothing, or medical care? No 11/01/2023 In the past 12 months have y ou been in a relationship with a person who hurts, threatens, or tries to control you? 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 [place] [address] 06/12/2025 12:40 PM EDT Office Visit [facility] 22 [facility] 3rd [facility], [address] [place] [address] Goran Swartz MD 22 [facility], [address] [place] [address] 08/29/2025 10:20 AM EST [facility] 22 [facility] 3rd Floor, [address] [place] [address] Goran Swartz MD [address] [place] [address], [address] [address] 09/18/2025 1:20 PM EST Office Visit [facility] [address] [place] [address] Kit Anthony DO 22 [place] [address] Scheduled Orders Name Type Priority Associated Diagnoses Orde r Schedule Total protein creatinine ratio, random urine Lab Routine Stage 3b chronic kidney disease Expected: 05/27/2024, Expires: 05/27/2025 documented as of this encounter Visit Diagnoses Diagnosis Stage 3b chronic kidney disease- Primary documented in this encounter Care Teams Ultrasound Sonographer Relationship Specialty Start Date End Date Gabby Bell MD 15 [facility] 201 [place] [address] [email or web address] PCP - General Family Medicine 04/23/21 Gabby Bell MD 15 [facility] 201 [place] [address] [email or web address] Insurance Assigned Provider 11/28/23 Shaji Zeng MD [facility] Carolina Garces [address] [address] Orthopedic Surgery 02/08/25 documented as of this encounter Additional Source Comments The information contained in this document represents components of the legal health record. It is not the complete legal health record.[facility]
--- OUTSIDE RECORDS SUMMARY | 2025-05-01 15:26 | XMS_ITS | Encounter Summary ---
Author Organization [facility] Address [address] [facility] [address] [place] [address] Phone Care Team Providers Care Furniture Crater Name Role Phone Gabby Bell MD Primary Care Provider [phone] Gabby Bell MD Unavailable [phone] Diana Wren OT Unavailable [phone] Diana Wren OT Unavailable [phone] Diana Wren OT Unavailable [phone] Shaji Zeng MD Unavailable [phone] Encounter Details Date Type Department Care Team (Late st Contact Info) Description 03/17/2023 Procedure Pass [facility] 30 [place], [place] [id number] Social History Tobacco Use Types Packs/Day Years [...] high school, GED, job training, learning the Singaporean language, technical skills, or developing parenting skills)? 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 Wish to be (Past 1 Month) No 023 6:53 PM Alize Mars, RN 2. Non-Specific Active Suici harvey Thoughts (Past 1 Month) No 03/17/2023 6:53 PM RANDALLT Alize Fagan , RN 6. Suicidal Behavior (Lifetime) No 6:53 PM RANDALLT Alize Fagan, RN documented as of this encounter Plan of Treatment Upcoming Encounters Date Type Department Care Team (Late st Contact Info) Description 05/25/2025 4:30 PM EDT Office Visit [facility] Rheumatology [address] [place] [address] Emily Ireland MD 22 [facility], [address] [place] [address] [email or web address] 05/31/2025 10:20 AM EDT Office Visit [facility] [place] [facility] 15 [facility] [address] [place] [address] Gabby eBll MD 15 [facility] [address] [place] [address] 06/12/2025 12:40 PM EDT Office Visit [facility] [address] [facility], [address] [place] [address] Goran Swartz MD [address] [place] [address], [address] [address] 08/29/2025 10:20 AM EST Office Visit [facility] [address] 3rd Floor, [address] [place] [address] Goran Swartz MD [address] [place] [address], [address] [address] 09/18/2025 1:20 PM EST Office Visit [facility] [address] [place] [address] Kit Anthony DO 22 [place] [address] documented as of this encounter Visit Diagnoses Not on filedocumented in this encounter Additional Health Concerns Infection Onset Date Last Indicated Resolved Time CoV-Risk Comment:Per note documentation 11/01/2023 11/01/2023 12:21 PM EDT documented as of this encounter Care Teams Furniture Crater Relationship Specialty Start Date End Date Gabby Bell MD 15 [facility] 201 [place] [address] PCP - General Family Medicine 04/23/21 Gabby Bell MD 15 [facility] 201 [place] [address] Insurance Assigned Provider 11/28/23 Diana Wren, OT 30 [place] [address] [email or web address] Transitions Factory HelperMedical Registrar Therapy 03/18/23 Diana Wren, OT 30 [place] [address] [email or web address] Transitions Factory HelperMedical Registrar Therapy 08/03/23 Diana Wren, OT 30 [place] [address] [email or web address] Transitions Factory HelperMedical Registrar Therapy 11/02/2307/17 Shaji Zeng MD [facility] Carolina Garces [facility] 201 [place] [address] Orthopedic Surgery 02/08/25 documented as of this encounter Additional Source Comments The information contained in this document represents components of the legal health record. It is not the complete legal health record.[facility]
--- OUTSIDE RECORDS SUMMARY | 2025-05-01 15:26 | XMS_ITS | Encounter Summary ---
Author Organization [facility] Address [address] [place] [address] Phone Care Team Providers Care Therapeutic Dietitian Name Role Phone Gabby Bell MD Primary Care Provider [phone] Gabby Bell MD Unavailable [phone] Shaji Zeng MD Unavailable [phone] Reason for Visit * Reason Onset Date Comments VNA Update 02/22/2025 Encounter Details Date Type Department Care Team (Late st Contact Info) Description 02/22/2025 Telephone [facility] [place] [facility] [address] [place] [address] Gabby Bell MD 15 [facility] [address] [place] [address] [email or web address] VNA Update Social History Tobacco Use Types Packs/Day Years Used Date Smoking Tobacco: Never Smokeless Tobacco: Never Alcohol Use Standard Drinks/Week Comments Not Currently 0 (1 standard drink = 0.6 oz pur e alcohol) occ Home Health Assessment: Transportation Answer Date Recorded Lack of Transportation (Medical) No 02/07/2025 Lack of Transportation (Non-Medical) No 02/07/2025 Patient Unable or Declines to Respond No 02/07/2025 Child or Family Care Answer Date Record ed Do you have problems with on e of the following making it difficult for you to work, study, or receive health care? No 09/03/2022 Education Answer Date Recorded Are you interested in more education? Not on indio e 09/08/2024 Are you concerned about learning? 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 The pt had a scheduled OT eval appt for today. Caller arrvied at 11:13 and she did nto andser the door. She tried both entrances. She did not answer her phone call either. Several voicemails were left. She is still there and there is no sign from pt. She has informed her customer complaint service supervisor. She states she refused another appt with her before. The OT order is being cancelled. Please call [phone] with any questions. Central Support Pain Management Physician (Please do not reply to this user; this inbox is not monitored.) Thank you. documented in this encounter Plan of Treatment Upcoming Encounters Date Type Department Care Team (Late st Contact Info) Description 05/25/2025 4:30 PM EDT Office Visit [facility] Rheumatology [address] [place] [address] Emily rIeland MD 22 [facility], [address] [place] [address] [email or web address] 05/31/2025 10:20 AM EDT Office Visit [facility] [place] [facility] [address] [place] [address] Gabby Bell MD 15 [facility] [address] [place] [address] 06/12/2025 12:40 PM EDT Office Visit [facility] [address], [address] [place] [address] Goran Swartz MD 22 [facility], [address] [address] 08/29/2025 10:20 AM EST Office Visit [facility] 22 [facility] 3rd Floor, [address] [place] [address] Goran Swartz MD [address] [address] 09/18/2025 1:20 PM EST Office Visit [facility] 22 [place] [address] Kit Anthony DO 22 [place] [address] documented as of this encounter Visit Diagnoses Not on filedocumented in this encounter Care Teams Therapeutic Dietitian Relationship Specialty Start Date End Date Gabby Bell MD [address] [address] PCP - General Family Medicine 04/23/21 Gabby Bell MD [address] [address] Insurance Assigned Provider 11/28/23 Shaji Zeng MD [address]ces [address] [address] Orthopedic Surgery 02/08/25 documented as of this encounter Additional Source Comments The information contained in this document represents components of the legal health record. It is not the complete legal health record.[facility]
--- OUTSIDE RECORDS SUMMARY | 2025-05-01 15:27 | XMS_ITS | Encounter Summary ---
Author Organization [facility] Address [address] [place] [address] [place] [address] Phone Care Team Providers Care Machine Designer Name Role Phone Gabby Bell MD Primary Care Provider [phone] Gabby Bell MD Unavailable [phone] Diana Wren OT Unavailable [phone] Diana Wren OT Unavailable [phone] Diana Wren OT Unavailable [phone] Shaji Zeng MD Unavailable [phone] Encounter Details Date Type Department Care Team (Late st Contact Info) Description 11/22/2021 Procedure Pass Non-Invasive Cardiology [address] [place] [address] Social History Tobacco Use Types Packs/Day Years [...] 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 [place] [address] 06/12/2025 12:40 PM EDT Office Visit [facility] 22 [facility] 3rd Floor, [address] [place] [address] Goran Swartz MD 22 [facility], [address] [place] [address] [address] 08/29/2025 10:20 AM EST Office Visit [facility] [address] 3[address] Floor, [address] [place] [address] Goran Swartz MD [address] [place] [address], [address] [place] [address] [address] 09/18/2025 1:20 PM EST Office Visit [facility] 22 [place] [address] Kit Anthony DO 22 [place] [address] documented as of this encounter Visit Diagnoses [...] documented as of this encounter Care Teams Machine Designer Relationship Specialty Start Date End Date Gabby Bell MD [address] [address] PCP - General Family Medicine 04/23/21 Gabby Bell MD [address] [address] Insurance Assigned Provider 11/28/23 Diana Wren, OT 30 [place] [address] Transitions Project Finance AnalystManager Summer Therapy 03/18/23 Diana Wren, OT 30 [place] [address] Transitions Project Finance AnalystManager Summer Therapy 08/03/23 Diana Wren, OT 30 [place] [address] Transitions Project Finance AnalystManager Summer Therapy 11/02/2307/17 Shaji Zeng MD [address] [place] [address] Orthopedic Surgery 02/08/25 documented as of this encounter Additional Source Comments The information contained in this document represents components of the legal health record. It is not the complete legal health record.[facility]
--- OUTSIDE RECORDS SUMMARY | 2025-05-01 15:27 | XMS_ITS | Encounter Summary ---
Author Organization [facility], Address [address] [place] [address] Phone Care Team Providers Care Hog Operator Name Role Phone Gabby Bell MD Primary Care Provider Encounter Details Date Type Department Care Team (Late st Contact Info) Description 02/22/2024 Documentation Only [facility] [address] [place] [address] Fina Butler [address] [place] [address] Social History Tobacco Use Types Packs/Day Years Used Date Smoking Tobacco: Never Smokeless Tobacco: Never Alcohol Use Standard Drinks/Week Comments Yes 0 (1 standard drink = 0.6 oz pur e alcohol) Comments Unknown Sex and Gender Information Value Date Recorded Sex Assigned at Not on file Legal Sex Female 3:32 PM EDT Gender Identity Not on file Sexual Orientation Not on file 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 [phone] documented as of this encounter Visit Diagnoses Not on filedocumented in this encounter Care Teams Hog Operator Relationship Specialty Start Date End Date Gabby Bell MD [address] [place] [address] PCP - General Family Medicine 05/17/21 documented as of this encounter
--- OUTSIDE RECORDS SUMMARY | 2025-05-01 15:27 | XMS_ITS | Encounter Summary ---
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 [address] documented as of this encounter Visit Diagnoses Not on filedocumented in this encounter Care Teams Corporate Physical Security Supervisor Relationship Specialty Start Date End Date Gabby Bell MD [address] [place] [address] PCP - General Family Medicine 05/17/21 documented as of this encounter
--- OUTSIDE RECORDS SUMMARY | 2025-05-01 15:27 | XMS_ITS | Encounter Summary ---
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 [address] documented as of this encounter Visit Diagnoses Not on filedocumented in this encounter Care Teams Route Sales Specialist Relationship Specialty Start Date End Date Gabby Bell MD [address] [place] [address] PCP - General Family Medicine 05/17/21 documented as of this encounter
--- OUTSIDE RECORDS SUMMARY | 2025-05-01 15:27 | XMS_ITS | Encounter Summary ---
Author Organization [facility] [place], Address [address] [place] [address] Phone Care Team Providers Care Relay Worker Name Role Phone Gabby Bell MD Primary Care Provider Encounter Details Date Type Department Care Team (Late st Contact Info) Description 09/09/2023 Documentation Only [facility] [address] [place] [address] Kodi Hewitt MD [address] [place] [address] 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 [address] documented as of this encounter Visit Diagnoses Not on filedocumented in this encounter Care Teams Relay Worker Relationship Specialty Start Date End Date Gabby Bell MD [address] [place], [place] [id number] PCP - General Family Medicine 05/17/21 documented as of this encounter
--- OUTSIDE RECORDS SUMMARY | 2025-05-01 15:27 | XMS_ITS | Encounter Summary ---
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 [address] documented as of this encounter Visit Diagnoses Not on filedocumented in this encounter Care Teams Shipping And Receiving Specialist Relationship Specialty Start Date End Date Gabby Bell MD [address] [place] [address] PCP - General Family Medicine 05/17/21 documented as of this encounter
--- OUTSIDE RECORDS SUMMARY | 2025-05-01 15:27 | XMS_ITS | Encounter Summary ---
Author Organization [facility] [place], Address [address] [place] [address] Phone Care Team Providers Care Gluing Machine Operator Name Role Phone Gabby Bell MD Primary Care Provider Encounter Details Date Type Department Care Team (Late st Contact Info) Description 07/31/2023 Documentation Only [facility] [address] [place] [address] Kodi Hewitt MD [address] [place] [address] 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 [address] documented as of this encounter Visit Diagnoses Not on filedocumented in this encounter Care Teams Gluing Machine Operator Relationship Specialty Start Date End Date Gabby Bell MD [address] [place], [place] [id number] PCP - General Family Medicine 05/17/21 documented as of this encounter
--- OUTSIDE RECORDS SUMMARY | 2025-05-01 15:27 | XMS_ITS | Encounter Summary ---
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 [address] documented as of this encounter Visit Diagnoses Not on filedocumented in this encounter Care Teams Business Intern Relationship Specialty Start Date End Date Gabby Bell MD [address] [place] [address] PCP - General Family Medicine 05/17/21 documented as of this encounter
--- OUTSIDE RECORDS SUMMARY | 2025-05-01 15:28 | XMS_ITS | Clinical Summary ---
Author Organization [facility], Address [address] [place] [address] Phone Care Team Providers Care Diesel Engine Engineer Name Role Phone Gabby Bell MD Primary Care Provider Allergies Active Allergy Reactions Criticality Noted Date Comments Adhesive Tape 04/09/2021 Can use paper tape Cholecalciferol Hives 12/16/2017 But now taking vit D without any problems But now taking vit D without any problems But now taking vit D without any problems Latex 12/16/2017 Levofloxacin High 11/17/2020 Other reaction(s): Tendonitis Other reaction(s): Tendonitis Other reaction(s): Tendonitis Meperidine Nausea 08/28/2021 Vitamin D (Calciferol) 12/16/2017 Medications apixaban (ELIQUIS) 5 MG tablet Take 5 mg by mouth twice a day 1 Active acetaminophen (TYLENOL) 500 MG tablet Take 500 mg by mouth every 6 (six) hours if needed Active atorvastatin (LIPITOR) 40 MG tablet Take 40 mg by mouth daily 8 Active omeprazole (PriLOSEC) [address] capsule Take 20 mg by mouth daily 1 Active pentosan polysulfate (ELMIRON) 100 MG capsule Take 100 mg by mouth 4 times a day Active Mirabegron ER 50 MG tablet sustained-releas e 24 hour Take 50 mg by mouth daily 8 Active Dulaglutide (Trulicity) 1.5 MG/0.5ML solution pen-injector Inject 1.5 mg under the skin 1 Active Insulin Lispro, 1 Unit Dial, 100 UNIT/ML solution pen-injector 1 Active metoprolol tartrate (LOPRESSOR) 50 MG tablet Take 50 mg by mouth 2 (two) times a day 1 Active torsemide (DEMADEX) 20 MG tablet Take 20 mg by mouth 1 (one) time each day in the morning 1 Active ascorbic acid (VITAMIN C) 500 MG tablet Take 1 tablet by mouth 1 (one) time each day 2 Active calcitriol (ROCALTROL) 0.5 MCG capsule Take 0.5 mcg by mouth in the morning and 0.5 mcg in the evening. 2 Active calcium carbonate (OS-OSMAN) 1250 (500 Ca) MG chewable tablet Chew 1,500 mg in the morning. 2 Active dilTIAZem CD (CARDIZEM CD) 120 MG 24 hr capsule Take 120 mg by mouth 1 (one) time each day 2 Active potassium chloride (MICRO-K) 10 MEQ CR capsule Take 20 mEq by mouth in the morning and 20 mEq in the evening. 2 Active Toujeo SoloStar 300 UNIT/ML solution pen-injector ADMINISTER 30 UNITS UNDER THE SKIN EVERY NIGHT AT BEDTIME 2 Active dilTIAZem (TIAZAC) 120 MG 24 hr capsule Take 120 mg by mouth 1 (one) time each day 2 Active benzonatate (TESSALON) 100 MG capsule Take 100 mg by mouth 3 (three) times a day if needed 2 Active potassium chloride (KLOR-CON M20) 20 MEQ CR tablet 2 Active fluticasone (FLONASE) 50 MCG/ACT nasal spray SHAKE LIQUID AND USE 1 SPRAY IN EACH NOSTRIL TWICE DAILY 2 Active diazePAM (VALIUM) 5 MG tablet Take 5 mg by mouth at night if needed 2 Active Jardiance 10 MG tablet 3 Active allopurinol (ZYLOPRIM) 300 MG tablet 3 Active levothyroxine (SYNTHROID, LEVOTHROID) 150 MCG tablet 3 Active Active Problems Problem Noted Date Diagnosed Date Chronic kidney disease stage 4 11/01/2023 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 Continue proper hydration and low purine diet. Call if problems or questions. Monitor for unusual abdominal pain, skin rashes, nausea or diarrhea. Hypotension 11/05/2021 Overview (11/20/2021): Last Assessment & Plan: Etiology not certain. Hypocalcemia can cause LV dysfunction, however EF by bedside US showed unremarkable EF, making this less likely. She is perhaps just volume down however did not have much response to the first litre and does have some crackles. We will give a second L now and reassess thereafter. Monitor BP carefully. - holding diurectic tonight Given known hx of tenuous volume status and inability to obtain read from Mems device (some issue she states) we will have cards consult in regards to her volume status in the AM Hypocalcemia 11/04/2021 Overview (11/20/2021): Last Assessment & Plan: Severe mildly symptomatic hypocalcemia. Etiology not certain at this time. She does have some degree of CKD but has never had frankly elevated PTH's, nor does she now. She does however have new hyperphosphatemia and hyperuricemia, which could be worsening the symptoms/presentation. She does have mild hypomagnesemia at 1.4 which is long standing and seems not likely low enough to account for the hypocalcemia She has longstanding partial parathyroidectomy but has had recent review In 06/2021 of her calcium axis by her Restaurant Assistant after having stopped calcitriol about 1 year ago with normal labs at that time. There is no reason she would have a rhabdo or tumor lysis to cause these symptoms. Perhaps this is a multifactorial etiology. We will have Endo consult in the AM She was given IV calcium in the ER as well as IV mg, repeat levels shortly IV hydration to attempt to reverse some of the TIA which could be contributing. PTHRP and 25 Vit D and 1,25 all pending Recheck Mg and Ca in 6 hours. Gout secondary to renal impairment 10/30/2021 Overview (11/20/2021): Last Assessment & Plan: New set of lab work requested today-standing orders in [facility]. Procedure: After an informed oral consent, under sterile conditions using Ethyl chloride spray for local anesthesia and 3 cc 1% Lidocaine as topical anesthetic I have aspirated few drops of bloody fluid from Right ankle uneventfully. Details of post-procedure care were explained to the patient in the office and given in writing. Provider: Emily Ireland MD Patient: Merline Amor : 1950 Date: 10/30/2021 Provided her labs return stable with marked hyperuricemia I am offering her small dose of uric acid lowering allopurinol 100 mg daily and repeat lab work in a month. Continue proper hydration and low purine diet. Hyperuricemia 10/30/2021 Overview (05/30/2022): Last Assessment & Plan: She understands multifactorial nature of hyperuricemia mostly due to chronic renal disease and to much lesser extent contributed to poor hydration and possible dietary indiscretions. We discussed best approach at this time that involves careful administration of uric acid lowering allopurinol monitoring renal function and bring the serum uric acid level as close as possible below 6 mg % that is saturation point above which uric acids crystallize and puts her at an increased risk of recurrent gouty attacks. She understands and agrees to carefully and allopurinol to her therapeutic regimen provided labs are satisfactory-standing orders in [facility]. Last Assessment & Plan: She understands multifactorial nature of hyperuricemia mostly due to chronic renal disease and to much lesser extent contributed to poor hydration and possible dietary indiscretions. We discussed best approach at this time that involves careful administration of uric acid lowering allopurinol monitoring renal function and bring the serum uric acid level as close as possible below 6 mg % that is saturation point above which uric acid crystallizes and puts her at an increased risk of recurrent gouty attacks. She understands and agreed to carefully add allopurinol to her therapeutic regimen provided labs are satisfactory-standing orders in [facility]. I encouraged her to carefully increase the allopurinol dose from 100 mg daily to 100 mg twice daily and return in 3 months with lab work monitoring its safety-orders in [facility]. Diastolic dysfunction 08/29/2021 Essential (primary) hypertension 08/29/2021 Stage 3b chronic kidney disease 05/16/2021 Renal osteodystrophy 05/16/2021 Hypokalemia 05/16/2021 Hypoparathyroidism following procedure 1 Overview (05/30/2022): Last Assessment & Plan: The dose of Rocaltrol was decreased from 1 mcg to 0.5 mcg because her serum calciums were high. Repeat intact PTH, serum calcium are within the reference range. In fact the PTH is low normal. It may be suppressed because she is taking Rocaltrol. I don't have 125 dihydroxy vitamin D levels yet. She doesn't take calcium supplements. I asked her to stop taking Rocaltrol and will repeat lab work again in 2 months time. She already has tingling in her hands and her feet but that could be from diabetes neuropathy. If she starts getting tingling around her lips or feeling contracted with pain of the bones then she may be developing hypocalcemia in which case I will prefer to do lab work right away. Just to get the results first. If she develops the symptoms then I will want her to stop Rocaltrol again. Last Assessment & Plan: It does appear that the patient makes PTH. But she either does not make sufficient PTH or is not active because she developed hypocalcemia. So now we know that she does need Rocaltrol at least 0.5 mcg daily. Currently she is on 0.5 mcg twice a day. When she was doing this in the past despite not taking calcium her ionized calcium was elevated and serum calcium levels were elevated. She has developed nephrolithiasis so we actually do not want to always supplement the calcium. In fact patients who have postsurgical hypoparathyroidism need to be maintained on low serum calcium around 8 mg/dL. I was wondering if she even needed the Rocaltrol this is why I gradually decrease the medication to begin with because the PTH at 1 point was suppressed I do not due to the Rocaltrol. Currently she is taking tablets twice a day I asked her to decrease it by 1. If she continues to do well we will decrease it again. I think that we have to monitor the serum calcium levels and again to get him to decrease the Rocaltrol to 0.5 mcg but obviously she needs this medication so it cannot be completely discontinued. So for the follow-up visit I am going to order comprehensive, PTH, ionized calcium, 1, 25 dihydroxy vitamin D has always been in the reference range even when her ionized calcium was low. Nevertheless I will check it. Last Assessment & Plan: The patient is hypoparathyroid on Rocaltrol 0.5 mcg currently not taking any calcium supplements we need the calcium to be low 8 mg/dL range but I do get concerned that she may develop hypercalcemia although presently she is asymptomatic. We do need the calcium in the low range in order to prevent hypercalcemia such as nephrolithiasis vascular calcification etc. the patient states that she believes she is actually taking Rocaltrol twice a day. She also states that she believes that either myself or her physical chemistry teacher discontinue the Tums because of nephrolithiasis. I checked my messages and there is no message from me asking her to discontinue Tums altogether. So I suspect that this is her physical chemistry teacher. Presently she is uncertain if she is taking Rocaltrol once or twice a day. She needs to get back to me because I need to see exactly what she is doing when I review her lab work. Type 2 diabetes mellitus with diabetic polyneuro kimberley 02/28/2021 Overview (05/30/2022): Last Assessment & Plan: I explained that her insulin use can cause weight gain due to resolution of glycosuria but that this is in her best interest from the viewpoint of diabetic control. Last Assessment & Plan: Appears to be controlled based on the hemoglobin A1c but the hemoglobin A1c may be falsely low. I prefer to really follow her glucose levels. At least 2 weeks prior to the visit she must check twice a day always a fasting a second alternating between lunch, dinner, and bedtime. I gave her a log sheet so that she can follow-up as she always seems to bring in the meter. The meter gets meter averages. Her fasting average is just slightly above the reference range but otherwise okay. She is not checking in the afternoon so it is hard to say if she is having postprandial hyperglycemia and I suspect that when she gets intra-articular corticosteroid injections this is was happening and maybe this is why sometimes she has variable glucose levels. Not changing her regimen based on the numbers I have she appears to be doing reasonably well. She will continue with her Humalog correction scale, Trulicity, and Toujeo 25 units daily. She will repeat hemoglobin A1c prior to the follow-up visit. I will give her a follow-up visit in 3 months because some concern regarding her other medical issues. Last Assessment & Plan: Unfortunately I do not have a hemoglobin A1c presently. She brought in her meter and again unfortunately she is only checking once a day in the morning and not doing alternate glucose levels at least 1 to 2 weeks before the visit. She had excellent hemoglobin A1c in the past at 6.9%. She does get these corticosteroid injections periodically and when she has them she needs to use the Humalog correction scale because she is going to have postprandial hyperglycemia and the Trulicity will not be effective. But based on the meter she has excellent glycemic control with an average glucose of 119 mg/dL the ranges 101-142 mg/dL. I would not make any changes she should continue current management. Renal disorder due to type 2 diabetes mellitus 0 01/11/2021 Isaco-ev-waceqtt renal failure 12/11/2020 Overview (11/20/2021): Last Assessment & Plan: Significant bump in renal function, with concominant hyperphosphatemia as well as the hypocalcemia and markedly elevated uric acid. Etiology ddx Volume depletion vs. Crystal disease vs. Poor profusion from cardiac malfunction (doesn't seem likely) Will recheck after second litre Awaiting urine results as well. For now Hold diurectic as well as K supplement. Monitor O2, renal consult in AM Pulmonary hypertension 11/30/2020 Overview (01/10/2021): Last Assessment & Plan: Severe as of right heart catheterization from 12/04/2020 ? Etiology Last Assessment & Plan: Severe as of right heart catheterization from 12/04/2020 ? Etiology She received CardioMEMS sensor on 01/03/2021 to monitor and manage it precisely Type 2 diabetes mellitus 11/28/2020 Overview (11/20/2021): Last Assessment & Plan: Carefully continue monitoring and adjusting antidiabetic therapy to keep close as possible BS= 90-120 mg %. Last Assessment & Plan: Carefully continue monitoring and adjusting antidiabetic therapy to keep close as possible BS= 90-120 mg %. Last Assessment & Plan: Take all her diabetic medications exactly as prescribed by Dr. Anthony and follow with him as scheduled. 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 Great response to systemic dose of prednisone on one hand suggestive for possible GCA even though temporal artery biopsy returned negative and clinical presentation not typical for GCA. It is known in the literature that vasculitic inflammation may not be continues along the vessel wall but rather Skippy therefore I am concerned about ongoing risk of visual loss, stroke or heart attack so I asked her to continue current prednisone dose until 2nd opinion rheumatology consult at [facility] with Dr. Marroquin on 01/07/2021 to guide further work-up and role/need for steroid sparing therapy with IL-6 inhibitor= Actemra that I provided pamphlet for patient to read and write questions to discuss with Dr. Marroquin. I have reviewed with her the steroid sparing and disease modifying antirheumatic properties of Actemra. Due to the fact that she is diabetic her cardiovascular complications are much greater than anyone her age without diabetes. Additionally high dose steroid makes diabetes control and its related complications more difficult. Long-term current use of systemic steroid 12/20/2020 01/10/2021 Overview (01/10/2021): Last Assessment & Plan: Gently taper as tolerated. Daily calcium and vitamin D supplementation. Regular weightbearing exercises. Fall prevention strategies. Monitor for multiple side effects including but not limited to mood swings, increased intraocular and systemic pressure, diabetes, osteoporosis, fluid retention, increased appetite, risk of infection, bruising, hair thinning etc. Cor pulmonale 12/04/2020 01/10/2021 Body mass index 40+ - severely obese 11/30/2020 01/10/2021 Overview (01/10/2021): Last Assessment & Plan: Portion control. Limit concentrated sugars, saturated fats and calories in the diet. Keep well-hydrated. If unable to achieve expected goal consider formal dietary/nutritional support. Hypothyroidism 11/28/2020 01/10/2021 Overview (01/10/2021): Last Assessment & Plan: Continue thyroid replacement therapy as prescribed. Acute on chronic hypoxemic a nd hypercapnic respiratory failure 11/28/2020 01/10/2021 Overview (01/10/2021): Last Assessment & Plan: Suspect underlying obesity hypoventilation/MIGUEL. Her CT chest findings, elevated inflammatory markers, productive cough, and low-grade temperature are most consistent with acute pneumonia (bacterial versus viral). This in addition to underlying OHS/MIGUEL could have led to hypoventilation, but is also possible that she was receiving too much supplemental oxygen prior to ICU transfer, resulting in decreased respiratory drive and resulting hypoventilation. There could also be an element of volume overload. Clinically, she has significantly improved following initiation of BiPAP. SPO2 in the low to mid 90s on FiO2 28% with BiPAP. -Continue BiPAP for now and can trial off of NIV pending continued clinical improvement -Empiric diuresis -Once weaned from acute BiPAP, will continue BiPAP with sleep for treatment of presumed OHS/MIGUEL -Continued work-up of CT chest abnormalities with possibility of air trapping, as below -Encourage incentive spirometry, out of bed -Wean supplemental O2 for goal SpO2 >88% and <94% Increased frequency of urination 12/17/2017 01/10/2021 Overview (01/10/2021): Last Assessment & Plan: Urinalysis requested to make sure there are no signs of proteinuria or hematuria versus UTI Chronic primary bladder pain syndrome 12/17/2017 01/10/2021 Encounters Date Type Department Care Team Description 04/13/2025 3:45 PM EDT Office Visit [facility], [address] [place] [address] Kodi Hewitt MD Stage 3b chronic kidney disease (HCC) (Primary Dx); Renal disorder due to type 2 diabetes mellitus <Other diabetic kidney complication> (HCC); Hypoparathyroidism following procedure (HCC); Diastolic dysfunction 04/07/2025 Orders Only [facility], [address] [place] [address] Thorpe, Breanne Chronic kidney disease, Stage IV (severe) ([facility]) 02/27/2025 Telephone [facility] [address] [place] [address] Oly Montejo 02/27/2025 Documentation Only [facility] [address] [place] [address] Oly Montejo 02/27/2025 Telephone [facility] [address] [place] [address] Oly Montejo from Last 3 Months Immunizations Immunization Administration Dates Next Due DT 01/23/2003 H1N1 Inj 08/14/2009 Influenza Split High Dose Pr eservative Free IM 05/21/2022,06/16/2019 Influenza Split Preservative Free ID 07/30/2012 Influenza TIV (IM) 06/10/2017,06/16/2016, 009 Influenza Vaccine, Quadrival ent, Adjuvanted 05/30/2021 Influenza, Quadrivalent, Pre servative Free 05/13/2016,05/24/2015,08/10/2014,06/17 Influenza, Trivalent, Adjuvanted 06/22/2018 Influenza, Unspecified 05/24/2023,2017,06/10/2017,06/16,08/10/2014,06/17/2013,07/30/2012 ,06/27/2009,06/01/2008,07/20/2007,05/25,06/23/2003,07/11/2002, 2 Pfizer SARS-COV-2 04/14/2021,10/20/2020,09/27/19 21 Pneumococcal Conjugate 13-Valent 04/22/2021,08/24 Pneumococcal Polysaccharide 06/18/2021,1 10/05/2012,08/04/2013,07/20,07/20/2007 Respiratory Syncytial Virus (Rsv), Unspecified 05/24/2023 Shingrix 05/30/2021 Td 04/22/2021 Td, Unspecified 03/07/2019,01/23/2003 Tdap 07/20/2007,07/20/2007 Zoster 07/27/2015 Family History Medical History Relation Comments Hyperlipidemia Father Colon cancer Mother Relation Status Comments Father Mother Social History Tobacco Use Types Packs/Day Years [...] 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 [phone] Health Maintenance Due Date Last Done Comments Breast Cancer Screening 1950 Colorectal Cancer Screening: Annual FOBT 01/01/2001 Colorectal Cancer Screening: Colonoscopy 01/01/2001 Colorectal Cancer Screening: Sigmoidoscopy 01/01/2001 Diabetes: Ophthalmology Exam 01/10/2021 Diabetes: Pedal Pulse Checked 01/10/2021 Diabetes: Sensory Foot Exam 01/10/2021 Diabetes: Visual Foot Exam 01/10/2021 Influenza Vaccine (#1) 2025 3, 05/21/2022, 05/30/2021, Additional history exists Diabetes: Hemoglobin A1C 06/15/2025 025, 05/30/2024, 08/22/2022 Pneumococcal Vaccine: 50+ Years Completed 06/18/2021, 04/22/2021, 09/10/2017, Additional history exists Hepatitis B Vaccine Aged Out No longe r eligible based on patient's age to complete this topic Insurance Medicare [facility] Care Teams Diesel Engine Engineer Relationship Specialty Start Date End Date Gabby Bell MD [address] [id number] PCP - General Family Medicine 05/17/21
--- OUTSIDE RECORDS SUMMARY | 2025-05-01 15:28 | XMS_ITS | Encounter Summary ---
Author Organization [facility] Address [address] [place] [address] Phone Care Team Providers Care Car Salter Name Role Phone Cole Ott MD Primary Care Provider + [phone] Gabby Bell MD Primary Care Provider + [phone] Gabby Bell MD Unavailable [phone] Diana Wren OT Unavailable [phone] Diana Wren OT Unavailable [phone] Diana Wren OT Unavailable [phone] Shaji Zeng MD Unavailable [phone] Encounter Details Date Type Department Care Team (Late st Contact Info) Description 03/18/2021 Procedure Pass Non-Invasive Cardiology [address] [place] [address] Social History Tobacco Use Types Packs/Day Years [...] 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 [place] [address] 06/12/2025 12:40 PM EDT Office Visit [facility] [address] [facility], [address] [place] [address] Goran Swartz MD [address] [place] [address], [address] [address] 08/29/2025 10:20 AM EST Office Visit [facility] 22 [facility] 3rd Floor, [address] [place] [address] Goran Swartz MD [address] [place] [address] 09/18/2025 1:20 PM EST Office Visit [facility] 22 [place] [address] Kit Anthony DO [address] [place] [address] documented as of this encounter Visit Diagnoses [...] documented as of this encounter Care Teams Car Salter Relationship Specialty Start Date End Date Cole Ott MD [address] [place] [address] [email or web address] PCP - General Family Medicine 11/17/20 04/22/21 Gabby Bell MD [address] [address] PCP - General Family Medicine 04/23/21 Gabby Bell MD [address] [address] Insurance Assigned Provider 11/28/23 Diana Wren, OT 30 [place] [address] Transitions Pediatric PhysiatristOrder Tracer Therapy 03/18/23 Diana Wren, OT 30 [place] [address] Transitions Pediatric PhysiatristOrder Tracer Therapy 08/03/23 Diana Wren, OT 30 [place] [address] [email or web address] Transitions Pediatric PhysiatristOrder Tracer Therapy 11/02/2307/17 Shaji Zeng MD [address] [facility] [address] [place] [address] Orthopedic Surgery 02/08/25 documented as of this encounter Additional Source Comments The information contained in this document represents components of the legal health record. It is not the complete legal health record.[facility]
--- OUTSIDE RECORDS SUMMARY | 2025-05-01 15:28 | XMS_ITS | Encounter Summary ---
Author Organization [facility], Address [address] [place] [address] Phone Care Team Providers Care Tariff Supervisor Name Role Phone Gabby Bell MD Primary Care Provider Encounter Details Date Type Department Care Team (Late st Contact Info) Description 04/07/2025 Orders Only [facility] [address] [place] [address] Breanne Tohrpe [address] [place] [phone] Chronic kidney disease, Stage IV (severe) ([facility]) Social History Tobacco Use Types Packs/Day Years [...] 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 [address] documented as of this encounter Visit Diagnoses Diagnosis Chronic kidney disease, Stage IV (severe) (HCC) Chronic kidney disease, Stage IV (severe) documented in this encounter Care Teams Tariff Supervisor Relationship Specialty Start Date End Date Gabby Bell MD [address] [place] [address] PCP - General Family Medicine 05/17/21 documented as of this encounter
--- OUTSIDE RECORDS SUMMARY | 2025-05-01 15:28 | XMS_ITS | Encounter Summary ---
Author Organization [facility] Address [address] [place] [address] [place] [address] Phone Care Team Providers Care Plastic Sheets Supervisor Name Role Phone Cole Ott MD Primary Care Provider + [phone] Gabby Bell MD Primary Care Provider + [phone] Gabby Bell MD Unavailable [phone] Diana Wren OT Unavailable [phone] Diana Wren OT Unavailable [phone] Diana Wren OT Unavailable [phone] Shaji Zeng MD Unavailable [phone] Encounter Details Date Type Department Care Team (Late st Contact Info) Description 03/04/2021 Procedure Pass [facility] Scan - [address] [phone] Social History Tobacco Use Types Packs/Day Years [...] 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 Wish to be (Past 1 Month) No 021 10:58 AM EDT Rubia Lehman RN 2. Non-Specific Active Suici harvey Thoughts (Past 1 Month) No 03/04/2021 10:58 AM EDT Olga Lehman RN 6. Suicidal Behavior (Lifetime) No 10:58 AM EDT Rubia Lehman RN documented as of this encounter Plan of Treatment Upcoming Encounters Date Type Department Care Team (Late st Contact Info) Description 05/25/2025 4:30 PM EDT Office Visit [facility] Rheumatology [address] [place] [address] Emily Ireland MD 22 [facility], [address] [place] [address] [email or web address] 05/31/2025 10:20 AM EDT Office Visit [facility] [place] [facility] 15 [facility] [address] [place] [address] Gabby Bell MD [address] [facility] [address] [place] [address] 06/12/2025 12:40 PM EDT Office Visit [facility] [address] 3rd Floor, [address] [place] [address] Goran Swartz MD 22 [facility], [address] [place] [address] 08/29/2025 10:20 AM EST Office Visit [facility] [address] 3rd Floor, [address] [place] [address] Goran Swartz MD 22 [facility], [address] [place] [address] 09/18/2025 1:20 PM EST Office Visit [facility] 22 [place] [address] Kit Anthony DO 22 [place] [address] documented as of this encounter Visit Diagnoses [...] documented as of this encounter Care Teams Plastic Sheets Supervisor Relationship Specialty Start Date End Date Cole Ott MD [address] [place] [address] [email or web address] PCP - General Family Medicine 11/17/20 04/22/21 Gabby Bell MD [address] [address] PCP - General Family Medicine 04/23/21 Gabby Bell MD [address] [address] Insurance Assigned Provider 11/28/23 Diana Wren, OT 30 [place] [address] [email or web address] Transitions Client Support ProfessionalAccounting Professor Therapy 03/18/23 Diana Wren, OT 30 [place] [address] [email or web address] Transitions Client Support ProfessionalAccounting Professor Therapy 08/03/23 Diana Wren, OT 30 [place] [address] [email or web address] Transitions Client Support ProfessionalAccounting Professor Therapy 11/02/2307/17 Shaji Zeng MD [address] [place] [address] Orthopedic Surgery 02/08/25 documented as of this encounter Additional Source Comments The information contained in this document represents components of the legal health record. It is not the complete legal health record.[facility]
--- OUTSIDE RECORDS SUMMARY | 2025-05-01 15:29 | XMS_ITS | Encounter Summary ---
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 [phone] documented as of this encounter Visit Diagnoses Not on filedocumented in this encounter Care Teams Early Childhood Educator Aide Relationship Specialty Start Date End Date Gabby Bell MD [address] [place] [address] PCP - General Family Medicine 05/17/21 documented as of this encounter
--- OUTSIDE RECORDS SUMMARY | 2025-05-01 15:29 | XMS_ITS | Encounter Summary ---
Author Organization [facility] Address [address] [facility] [address] [place] [address] Phone Care Team Providers Care Blanket Winder Operator Name Role Phone Gabby Bell MD Primary Care Provider Gabby Bell MD Unavailable [phone] Shaji Zeng MD Unavailable [phone] Reason for Visit * Reason Comments Medication Refill Encounter Details Date Type Department Care Team (Late st Contact Info) Description 04/24/2025 Refill [facility] Pulmonary, Allergy and Critical Care Medicine [address] [place] [address] Jef Hammond MD [address] [place] [address] Medication Refill Social History Tobacco Use Types Packs/Day Years Used Date Smoking Tobacco: Never Smokeless Tobacco: Never Alcohol Use Standard Drinks/Week Comments Not Currently 0 (1 standard drink = 0.6 oz pur e alcohol) occ Home Health Assessment: Transportation Answer Date Recorded Lack of Transportation (Medical) No 02/27/2025 Lack of Transportation (Non-Medical) No 02/27/2025 Patient Unable or Declines to Respond No 02/27/2025 Child or Family Care Answer Date Record [...] 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 Original(s) may be discontinued, , or different strength/form. Review required. Rx Care Gap Status - Instructions for Clinical Staff (prescriber discretion applies): > Mismatch review guide > At least one request does not meet full criteria. Specifics below. > No recent appt: Pt does have a future appt. Please review request for appropriateness. Visit Info Last visit: 04/23/2023 Matt Murillo MD - Pulmonology [facility] 10 MAIN > Requested f/u: Return in about 2 months (around 06/23/2023) for Next scheduled follow up afterPFTs. Upcoming visit: 04/26/2025 Matt Murillo MD - Pulmonology [facility] 10 MAIN ACTIONS TAKEN BY Lyssa Hutchinson LPN - Additional mismatch notes: med list has advair instead of wixela Asthma / COPD Inhalers Rx Protocol - fluticasone propion/salmeterol Rx mismatch - Original discontinued, , or different strength/form. Criteria for reference: Visit in the past 14 months: No documented in this encounter Plan of Treatment Upcoming Encounters Date Type Department Care Team (Late st Contact Info) Description 05/25/2025 4:30 PM EDT Office Visit [facility] Rheumatology [address] [place] [address] Emily Ireland MD [address] [place] [address], [address] [place] [address] [email or web address] 05/31/2025 10:20 AM EDT Office Visit [facility] [place] [facility] [address] [facility] [address] [place] [address] Gabby Bell MD [address] [address] 06/12/2025 12:40 PM EDT Office Visit [facility] [address], [address] [address] Goran Swartz MD [address] [place] [address] 08/29/2025 10:20 AM EST Office Visit [address], [address] [address] Goran Swartz MD [address] [place] [address] 09/18/2025 1:20 PM EST Office Visit [facility] [address] [place] [address] Kit Anthony DO [address] [place] [address] documented as of this encounter Visit Diagnoses Diagnosis Chronic cough Cough documented in this encounter Care Teams Blanket Winder Operator Relationship Specialty Start Date End Date Gabby Bell MD [address] [place] [address] PCP - General Family Medicine 04/23/21 Gabby Bell MD [address] [place] [address] Insurance Assigned Provider 11/28/23 Shaji Zeng MD [address] [place] [address] Ave [facility] 201 [place] [address] Orthopedic Surgery 02/08/25 documented as of this encounter Additional Source Comments The information contained in this document represents components of the legal health record. It is not the complete legal health record.[facility]
--- OUTSIDE RECORDS SUMMARY | 2025-05-01 15:29 | XMS_ITS | Encounter Summary ---
Author Organization [facility], Address [address] [place] [address] Phone Care Team Providers Care Digital Media Producer Name Role Phone Gabby Bell MD Primary Care Provider Encounter Details Date Type Department Care Team (Late st Contact Info) Description 01/24/2025 Office Communication [facility] [place] [address] Kodi Hewitt MD [address] [place] [address] 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 [address] documented as of this encounter Visit Diagnoses Not on filedocumented in this encounter Care Teams Digital Media Producer Relationship Specialty Start Date End Date Gabby Bell MD [address] [place], [place] [phone] PCP - General Family Medicine 05/17/21 documented as of this encounter
--- OUTSIDE RECORDS SUMMARY | 2025-05-01 15:29 | XMS_ITS | Encounter Summary ---
Author Organization [facility] Address [address] [facility] [address] [place] [address] Phone Care Team Providers Care Ceramic Sprayer Name Role Phone Gabby Bell MD Primary Care Provider [phone] Gabby Bell MD Unavailable [phone] Diana Wren OT Unavailable [phone] Diana Wren OT Unavailable [phone] Diana Wren OT Unavailable [phone] Shaji Zeng MD Unavailable [phone] Encounter Details Date Type Department Care Team (Latest Contact Info) Description 12/27/2021 Transcribe Orders Virtual Department 30 [place] [address] Kodi Hewitt MD 15 [facility] [address] [place], [place] [phone] Diastolic dysfunction (Primary Dx) Social History Tobacco Use Types [...] 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 [place] [address] 06/12/2025 12:40 PM EDT Office Visit [facility] [address] [facility] 3rd [facility], [address] [place] [address] Goran Swartz MD 22 [facility], [address] [address] 08/29/2025 10:20 AM EST Office Visit [facility] 22 [place] 3rd Floor, [address] [place] [address] Goran Swartz MD 22 [facility], [address] [address] 09/18/2025 1:20 PM EST Office Visit [facility] 22 [place] [address] Kit Anthony DO 22 [place] [address] documented as of this encounter Results * US Kidneys (01/01/2022 9:58 AM EDT) Anatomical Region Laterality Modality Abdomen, Kidney Ultrasound 01/01/2022 10:1 7 AM EDT Impressions 01/01/2022 10:24 AM EDT No hydronephrosis. Bilateral vascular calcifications. No evidence of obstructive renal calculus. Narrative 01/01/2022 10:24 AM EDT US KIDNEYS TECHNIQUE: Kidney Ultrasound. COMPARISON: Ultrasound dated 11/05/2021. CT dated 12/12/2021 FINDINGS: Right Kidney: Size: 12.2 cm Left Kidney: Size: 11.2 cm No hydronephrosis. Extensive bilateral vascular calcifications as seen on recent CT. No obstructive renal calculus. Bladder: Empty, limiting evaluation. Procedure Note Alisha Norman MD - 01/01/2022 US KIDNEYS TECHNIQUE: Kidney Ultrasound. COMPARISON: Ultrasound dated 11/05/2021. CT dated 12/12/2021 FINDINGS: Right Kidney: Size: 12.2 cm Left Kidney: Size: 11.2 cm No hydronephrosis. Extensive bilateral vascular calcifications as seen onrecent CT. No obstructive renal calculus. Bladder: Empty, limiting evaluation. IMPRESSION: No hydronephrosis. Bilateral vascular calcifications. No evidence ofobstructive renal calculus. 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 Infection Utility 11/01/2013 11/01/2013 10/08/2022 1:42 A M EST CoV-Risk Comment:Per Ambulatory Triage Form 12/24/2021 12/24/202101/04 1:22 AM EDT CoV-Risk 12/12/2022 12/12/2022 12/23/2022 1:22 AM EDT CoV-Risk Comment:Per note documentation 11/01/2023 11/01/2023 12:21 PM EDT documented as of this encounter Care Teams Ceramic Sprayer Relationship Specialty Start Date End Date Gabby Bell MD [address] [address] PCP - General Family Medicine 04/23/21 Gabby Bell MD 15 [facility] 201 [place] [address] Insurance Assigned Provider 11/28/23 Diana Wren, OT 30 [place] [address] Transitions Talent Program ManagerElectronic Health Records Specialist Therapy 03/18/23 Diana Wren, OT 30 [place] [address] Transitions Talent Program ManagerElectronic Health Records Specialist Therapy 08/03/23 Diana Wren, OT [address] [place] [address] Transitions Talent Program ManagerElectronic Health Records Specialist Therapy 11/02/2307/17 Shaji Zeng MD [facility] [place] Garces [address] [address] Orthopedic Surgery 02/08/25 documented as of this encounter Additional Source Comments The information contained in this document represents components of the legal health record. It is not the complete legal health record.[facility]
--- OUTSIDE RECORDS SUMMARY | 2025-05-01 15:30 | XMS_ITS | Encounter Summary ---
Author Organization [facility] Address [address] [place] [address] [place] [address] Phone Care Team Providers Care Beauty Culturist Name Role Phone Gabby Bell MD Primary Care Provider [phone] Gabby Bell MD Unavailable [phone] Diana Wren OT Unavailable [phone] Diana Wren OT Unavailable [phone] Diana Wren OT Unavailable [phone] Shaji Zeng MD Unavailable [phone] Encounter Details Date Type Department Care Team (Late st Contact Info) Description 05/05/2021 Procedure Pass Non-Invasive Cardiology [address] [place] [address] Social History Tobacco Use Types Packs/Day Years [...] 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 [place] [address] 06/12/2025 12:40 PM EDT Office Visit [facility] 22 [facility] 3rd Floor, [address] [place] [address] Goran Swartz MD 22 [facility], [address] [address] 08/29/2025 10:20 AM EST Office Visit [facility] [address] 3rd Floor, [address] [place] [address] Goran Swartz MD [address] [place] [address], [address] [address] 09/18/2025 1:20 PM EST Office Visit [facility] 22 [place] [address] Kit Anthony DO 22 [place] [address] documented as of this encounter Visit Diagnoses [...] documented as of this encounter Care Teams Beauty Culturist Relationship Specialty Start Date End Date Gabby Bell MD [address] [address] [email or web address] PCP - General Family Medicine 04/23/21 Gabby Bell MD [address] [address] [email or web address] Insurance Assigned Provider 11/28/23 Diana Wren, OT 30 [place] [address] [email or web address] Transitions Metal MachinistBuzzsaw Operator Therapy 03/18/23 Diana Wren, OT 30 [place] [address] [email or web address] Transitions Metal MachinistBuzzsaw Operator Therapy 08/03/23 Diana Wren, OT 30 [place] [address] Transitions Metal MachinistBuzzsaw Operator Therapy 11/02/2307/17 Shaji Zeng MD [address] [place], [place] [address]anitra Mili [address] [address] Orthopedic Surgery 02/08/25 documented as of this encounter Additional Source Comments The information contained in this document represents components of the legal health record. It is not the complete legal health record.[facility]
--- OUTSIDE RECORDS SUMMARY | 2025-05-01 15:31 | XMS_ITS | Encounter Summary ---
Author Organization [facility] Address [address] [place] [address] [place] [address] Phone Care Team Providers Care Senior Electronics Engineer Name Role Phone Cole Ott MD Primary Care Provider + [phone] Gabby Bell MD Primary Care Provider + [phone] Gabby Bell MD Unavailable [phone] Diana Wren OT Unavailable [phone] Diana Wren OT Unavailable [phone] Diana Wren OT Unavailable +[phone] Shaji Zeng MD Unavailable [phone] Encounter Details Date Type Department Care Team (Late st Contact Info) Description 11/28/2020 Procedure Pass [facility] 30 [place] [address] Social History Tobacco Use Types Packs/Day Years [...] or Mohamud 11/28/2020 9: 37 AM EDT documented as of this encounter Functional Status * Calculated C-SSRS Risk Score (Lifetime/Recent) Answer Date of Assessment Author No Risk Indicated 11/28/2020 9:37 AM EDT Evelyn Villalobos, RN * [place] Suicide Severity Rating Scale (Screener/Recent Self-Report) Question Answer Date of Assessment Author 1. Wish to be (Past 1 Month) No 021 9:37 AM EDT Evelyn Cervantes, RN 2. Non-Specific Active Suici harvey Thoughts (Past 1 Month) No 11/28/2020 9:37 AM EDT Evelyn Cervantes, NANDO 6. Suicidal Behavior (Lifetime) No 9:37 AM EDT Evelyn Cervantes RN documented as of this encounter Plan of Treatment Upcoming Encounters Date Type Department Care Team (Late st Contact Info) Description 05/25/2025 4:30 PM EDT Office Visit [facility] Rheumatology [address] [place] [address] Emily Ireland MD 22 [facility], [address] [place] [address] [email or web address] 05/31/2025 10:20 AM EDT Office Visit [facility] [place] [facility] [address] [facility] [address] [place] [address] Gabby Bell MD 15 [facility] [address] [place] [address] 06/12/2025 12:40 PM EDT Office Visit [facility] [address] 3rd Floor, [address] [place] [address] Goran Swartz MD 22 [facility], [address] [place] [address] 08/29/2025 10:20 AM EST Office Visit [facility] [address]rd [address], [address] [place] [address] Goran Swartz MD 22 [facility], [address] [place] [address] 09/18/2025 1:20 PM EST Office Visit [place] [address] [place] [address] [email or web address] documented as of this encounter Visit Diagnoses Not on filedocumented in this encounter Additional Health Concerns Infection Onset Date Last Indicated Resolved Time 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 Infection Utility 11/01/2013 11/01/2013 10/08/2022 1:42 A M EST CoV-Risk Comment:Per note documentation 11/28/2020 11/28/2020 4:23 PM EDT CoV-Risk Comment:Per Ambulatory Triage Form 10/01/2021 10/01/202110/11 1:24 AM EST CoV-Risk Comment:Per Ambulatory Triage Form 12/24/2021 12/24/202101/04 1:22 AM EDT CoV-Risk 12/12/2022 12/12/2022 12/23/2022 1:22 AM EDT CoV-Risk Comment:Per note documentation 11/01/2023 11/01/2023 12:21 PM EDT documented as of this encounter Care Teams Senior Electronics Engineer Relationship Specialty Start Date End Date Cole Ott MD [address] [place] [address] [email or web address] PCP - General Family Medicine 11/17/20 04/22/21 Gabby Bell MD [address] [place] [address] [email or web address] PCP - General Family Medicine 04/23/21 Gabby Bell MD [address] [place] [address] Insurance Assigned Provider 11/28/23 Wren Diana Denise, OT 30 [place] [address] [email or web address] Transitions Associate Sales ManagerContact Assembler Therapy 03/18/23 Diana Wren, OT 30 [place] [address] [email or web address] Transitions Associate Sales ManagerContact Assembler Therapy 08/03/23 Diana Wren, OT 30 [place] [address] [email or web address] Transitions Associate Sales ManagerContact Assembler Therapy 11/02/2307/17 Shaji Zeng MD [facility] [employer] Mili [address] [address] Orthopedic Surgery 02/08/25 documented as of this encounter Additional Source Comments The information contained in this document represents components of the legal health record. It is not the complete legal health record.[facility]
--- OUTSIDE RECORDS SUMMARY | 2025-05-01 15:31 | XMS_ITS | Encounter Summary ---
Author Organization [facility], Address [address] [place] [address] Phone Care Team Providers Care Practical Nursing Faculty Name Role Phone Gabby Bell MD Primary Care Provider Encounter Details Date Type Department Care Team (Late st Contact Info) Description 03/08/2021 Orders Only [facility] [address] [facility] 3 [place] [address] Kodi Hewitt MD [address] [place] [address] [place] [address] Chronic kidney disease stage 4 (HCC) Social History Tobacco Use Types Packs/Day Years Used Date Smoking Tobacco: Never Smokeless Tobacco: Never Alcohol Use Standard Drinks/Week Comments Yes 0 (1 standard drink = 0.6 oz pur e alcohol) Comments Unknown Sex and Gender Information Value Date Recorded Sex Assigned at Not on file Legal Sex Female 3:32 PM EDT Gender Identity Not on file Sexual Orientation Not on file documented as of this encounter Plan of Treatment Upcoming Encounters Date Type Department Care Team (Late st Contact Info) Description 11/02/2025 11:00 AM EDT Office [facility] - [facility] [address] [place] [phone] Kodi Hewitt MD [address] [place] [address] [place] [address] documented as of this encounter Visit Diagnoses Diagnosis Chronic kidney disease stage 4 (HCC) documented in this encounter Care Teams Practical Nursing Faculty Relationship Specialty Start Date End Date Gabby Bell MD [address] [place], [place] [id number] PCP - General Family Medicine 05/17/21 documented as of this encounter
--- OUTSIDE RECORDS SUMMARY | 2025-05-01 15:31 | XMS_ITS | Encounter Summary ---
Author Organization [facility] Address [address] [place] [address] Phone Care Team Providers Care Housekeeping Manager Name Role Phone Cole Ott MD Primary Care Provider + [phone] Gabby Bell MD Primary Care Provider + [phone] Gabby Bell MD Unavailable [phone] Diana Wren OT Unavailable [phone] Diana Wren OT Unavailable [phone] Diana Wren OT Unavailable [phone] Shaji Zeng MD Unavailable [phone] Encounter Details Date Type Department Care Team (Late st Contact Info) Description 03/18/2021 Procedure Pass Non-Invasive Cardiology [address] [place] [address] Social History Tobacco Use Types Packs/Day Years [...] 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 [place] [address] 06/12/2025 12:40 PM EDT Office Visit [facility] [address] [facility], [address] [place] [address] Goran Swartz MD [address] [place] [address], [address] [address] 08/29/2025 10:20 AM EST Office Visit [facility] 22 [facility] 3rd Floor, [address] [place] [address] Goran Swartz MD [address] [place] [address] 09/18/2025 1:20 PM EST Office Visit [facility] 22 [place] [address] Kit Anthony DO [address] [place] [address] documented as of this encounter Visit Diagnoses [...] documented as of this encounter Care Teams Housekeeping Manager Relationship Specialty Start Date End Date Cole Ott MD [address] [place] [address] [email or web address] PCP - General Family Medicine 11/17/20 04/22/21 Gabby Bell MD [address] [address] PCP - General Family Medicine 04/23/21 Gabby Bell MD [address] [address] Insurance Assigned Provider 11/28/23 Diana Wren, OT 30 [place] [address] Transitions Washery EngineerSocial Worker Clinical Therapy 03/18/23 Diana Wren, OT 30 [place] [address] Transitions Washery EngineerSocial Worker Clinical Therapy 08/03/23 Diana Wren, OT 30 [place] [address] [email or web address] Transitions Washery EngineerSocial Worker Clinical Therapy 11/02/2307/17 Shaji Zeng MD [address] [facility] 201 [place] [address] Orthopedic Surgery 02/08/25 documented as of this encounter Additional Source Comments The information contained in this document represents components of the legal health record. It is not the complete legal health record.[facility]
--- OUTSIDE RECORDS SUMMARY | 2025-05-01 15:31 | XMS_ITS | Encounter Summary ---
Author Organization [facility] Address [address] [place] [address] Phone Care Team Providers Care Commercial Credit Reviewer Name Role Phone Gabby Bell MD Primary Care Provider [phone] Gabby Bell MD Unavailable [phone] Diana Wren OT Unavailable [phone] Shaji Zeng MD Unavailable [phone] Encounter Details Date Type Department Care Team (Late st Contact Info) Description 11/01/2023 Procedure Pass [facility], Ct [facility] 30 [place], [place] [phone] Social History Tobacco Use Types Packs/Day Years [...] high school, GED, job training, learning the Indonesian language, technical skills, or developing parenting skills)? 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 Wish to be (Past 1 Month) No 024 9:03 AM EDT Aquiles Oneil, NANDO 2. Non-Specific Active Suici harvey Thoughts (Past 1 Month) No 11/01/2023 9:03 AM EDT Mendez Oneil, RN 6. Suicidal Behavior (Lifetime) No 9:03 AM EDT Aquiles Oneil, RN documented as of this encounter Plan of Treatment Upcoming Encounters Date Type Department Care Team (Late st Contact Info) Description 05/25/2025 4:30 PM EDT Office Visit [facility] Rheumatology [address] [place] [address] Emily Ireland MD 22 [facility], [address] [place] [address] [email or web address] 05/31/2025 10:20 AM EDT Office Visit [facility] [place] [facility] [address] [facility] [address] [place] [address] Gabby Bell MD 15 [facility] [address] [place] [address] 06/12/2025 12:40 PM EDT Office Visit [facility] [address]rd Floor, [address] [place] [address] Goran Swartz MD 22 [facility], [address] [place] [address] 08/29/2025 10:20 AM EST Office Visit [facility] [address] 3rd Floor, [address] [place] [address] Goran Swartz MD 22 [facility], [address] [address] 09/18/2025 1:20 PM EST Office Visit [facility] 22 [place] [address] Kit Anthony DO 22 [place] [address] [email or web address] documented as of this encounter Visit Diagnoses Not on filedocumented in this encounter Additional Health Concerns Infection Onset Date Last Indicated Resolved Time CoV-Risk Comment:Per note documentation 11/01/2023 11/01/2023 12:21 PM EDT documented as of this encounter Care Teams Commercial Credit Reviewer Relationship Specialty Start Date End Date Gabby Bell MD [address] [address] [email or web address] PCP - General Family Medicine 04/23/21 Gabby Bell MD [address] [address] [email or web address] Insurance Assigned Provider 11/28/23 Diana Wren, OT [address] [place] [address] [email or web address] Transitions Heading MakerMusic Rehabilitation Therapist Therapy 11/02/2307/17 Shaji Zeng MD [facility] [employer] Mili [address] [address] Orthopedic Surgery 02/08/25 documented as of this encounter Additional Source Comments The information contained in this document represents components of the legal health record. It is not the complete legal health record.[facility]
--- OUTSIDE RECORDS SUMMARY | 2025-05-01 15:31 | XMS_ITS | Encounter Summary ---
Author Organization [facility] Address [address] [place] [address] [place] [address] Phone Care Team Providers Care Business Banker Name Role Phone Cole Ott MD Primary Care Provider + [phone] Gabby Bell MD Primary Care Provider + [phone] Gabby Bell MD Unavailable [phone] Diana Wren OT Unavailable [phone] Diana Wren OT Unavailable [phone] Diana Wren OT Unavailable [phone] Shaji Zeng MD Unavailable [phone] Encounter Details Date Type Department Care Team (Late st Contact Info) Description 11/28/2020 Procedure Pass [facility], Ct Scan - [address] [phone] Social History Tobacco Use Types Packs/Day Years [...] 9:37 AM EDT Evelyn Villalobos, RN * [place] Suicide Severity Rating Scale (Screener/Recent Self-Report) Question Answer Date of Assessment Author 1. Wish to be (Past 1 Month) No 021 9:37 AM EDT Evelyn Cervantes, RN 2. Non-Specific Active Suici harvey Thoughts (Past 1 Month) No 11/28/2020 9:37 AM EDT Evelyn Cervantes, NANDO 6. Suicidal Behavior (Lifetime) No 9:37 AM EDT Evelyn Cervantes, RN documented as of this encounter Plan of Treatment Upcoming Encounters Date Type Department Care Team (Late st Contact Info) Description 05/25/2025 4:30 PM EDT Office Visit [facility] Rheumatology [address] [place] [address] Emily Ireland MD 22 [facility], [address] [place] [address] [email or web address] 05/31/2025 10:20 AM EDT Office Visit [facility] [place] [facility] 15 [facility] [address] [place] [address] Gabby Bell MD 15 [facility] [address] [place] [address] 06/12/2025 12:40 PM EDT Office Visit [facility] [address] 3rd Floor, [address] [place] [address] Goran Swartz MD 22 [facility], [address] [place] [address] 08/29/2025 10:20 AM EST Office Visit [facility] [address] 3rd Floor, [address] [place] [address] Goran Swartz MD 22 [facility], [address] [place] [address] 09/18/2025 1:20 PM EST Office [place] [address] [place] [address] [email or web address] documented as of this [...] documented as of this encounter Care Teams Business Banker Relationship Specialty Start Date End Date Cole Ott MD [address] [place] [address] [email or web address] PCP - General Family Medicine 11/17/20 04/22/21 Gabby Bell MD [address] [place] [address] [email or web address] PCP - General Family Medicine 04/23/21 Gabby Bell MD [address] [place] [address] Insurance Assigned Provider 11/28/23 Diana Wren, OT 30 [place] [address] Transitions Weed Science Research TechnicianDoffer Therapy 03/18/23 Diana Wren, OT 30 [place] [address] [email or web address] Transitions Weed Science Research TechnicianDoffer Therapy 08/03/23 Diana Wren, OT 30 [place] [address] Transitions Weed Science Research TechnicianDoffer Therapy 11/02/2307/17 Shaji Zeng MD [facility] [address] [facility] 201 [place] [address] Orthopedic Surgery 02/08/25 documented as of this encounter Additional Source Comments The information contained in this document represents components of the legal health record. It is not the complete legal health record.[facility]
--- OUTSIDE RECORDS SUMMARY | 2025-05-01 15:31 | XMS_ITS | Encounter Summary ---
Author Organization [facility] Address [address] [place] [address] [place] [address] Phone Care Team Providers Care Trigonometry Tutor Name Role Phone Gabby Bell MD Primary Care Provider [phone] Gabby Bell MD Unavailable [phone] Diana Wren OT Unavailable [phone] Diana Wren OT Unavailable [phone] Diana Wren OT Unavailable [phone] Shaji Zeng MD Unavailable [phone] Encounter Details Date Type Department Care Team (Late st Contact Info) Description 01/08/2022 Procedure Pass Non-Invasive Cardiology [address] [place] [address] Social History Tobacco Use Types Packs/Day Years [...] 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 [address] [place] [address] Gabby Bell MD 15 [facility] [address] [place] [address] 06/12/2025 12:40 PM EDT Office Visit [facility] [address] [facility] 3rd Floor, [address] [place] [address] Goran Swartz MD 22 [facility], [address] [address] 08/29/2025 10:20 AM EST Office Visit [facility] [address] 3[address] Floor, [address] [place] [address] Goran Swartz MD [address] [place] [address], [address] [address] 09/18/2025 1:20 PM EST Office Visit [facility] 22 [place] [address] Kit Anthony DO 22 [place] [address] documented as of this encounter Visit Diagnoses Not on filedocumented in this encounter Additional Health Concerns Infection Onset Date Last Indicated Resolved Time 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 PCP - General Family Medicine 04/23/21 Gabby Bell MD [address] [address] Insurance Assigned Provider 11/28/23 Diana Wren, OT 30 [place] [address] [email or web address] Transitions Retail Loss Prevention OfficerRepairer Wood Furniture Therapy 03/18/23 Diana Wren, OT 30 [place] [address] [email or web address] Transitions Retail Loss Prevention OfficerRepairer Wood Furniture Therapy 08/03/23 Diana Wren, OT 30 [place] [address] [email or web address] Transitions Retail Loss Prevention OfficerRepairer Wood Furniture Therapy 11/02/2307/17 Shaji Zeng MD [facility] [employer] Mili [address] [address] Orthopedic Surgery 02/08/25 documented as of this encounter Additional Source Comments The information contained in this document represents components of the legal health record. It is not the complete legal health record.[facility]
--- OUTSIDE RECORDS SUMMARY | 2025-05-01 15:31 | XMS_ITS | Encounter Summary ---
Author Organization [facility] Address [address] [place] [address] [place] [address] Phone Care Team Providers Care Information Assurance Engineer Name Role Phone Gabby Bell MD Primary Care Provider [phone] Gabby Bell MD Unavailable [phone] Diana Wren OT Unavailable [phone] Diana Wren OT Unavailable [phone] Diana Wren OT Unavailable [phone] Shaji Zeng MD Unavailable [phone] Encounter Details Date Type Department Care Team (Late Contact Info) Description 05/07/2021 Procedure Pass [facility], Ct Scan - [address] [id number] Social History Tobacco Use Types Packs/Day Years [...] 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 [place] [address] 06/12/2025 12:40 PM EDT Office Visit [facility] 22 [facility] 3rd [facility], [address] [place] [address] Goran Swartz MD 22 [facility], [address] [address] 08/29/2025 10:20 AM EST Office Visit [facility] 22 [facility] 3rd Floor, [address] [place] [address] Goran Swartz MD [address] [place] [address], [address] [address] 09/18/2025 1:20 PM EST Office Visit [facility] [address] [place] [address] Kit Anthony DO 22 [place] [address] documented as of this encounter Visit Diagnoses [...] documented as of this encounter Care Teams Information Assurance Engineer Relationship Specialty Start Date End Date Gabby Bell MD [address] [address] [email or web address] PCP - General Family Medicine 04/23/21 Gabby Bell MD [address] [address] [email or web address] Insurance Assigned Provider 11/28/23 Daina Wren, OT 30 [place] [address] [email or web address] Transitions Track Surfacing Machine OperatorMachine Coremaker Therapy 03/18/23 Diana Wren, OT 30 [place] [address] Transitions Track Surfacing Machine OperatorMachine Coremaker Therapy 08/03/23 Diana Wren, OT 30 [place] [address] Transitions Track Surfacing Machine OperatorMachine Coremaker Therapy 11/02/2307/17 Shaji Zeng MD [address] [place] [address] Orthopedic Surgery 02/08/25 documented as of this encounter Additional Source Comments The information contained in this document represents components of the legal health record. It is not the complete legal health record.[facility]
--- OUTSIDE RECORDS SUMMARY | 2025-05-01 15:31 | XMS_ITS | Encounter Summary ---
Author Organization [facility] Address [address] [place] [address] Phone Care Team Providers Care Personal Lines Account Executive Name Role Phone Cole Ott MD Primary Care Provider + [phone] Gabby Bell MD Primary Care Provider + [phone] Gabby Bell MD Unavailable [phone] Diana Wren OT Unavailable +[phone] Diana Wren OT Unavailable +[phone] Diana Wren OT Unavailable +[phone] Shaji Zeng MD Unavailable [phone] Encounter Details Date Type Department Care Team (Late st Contact Info) Description 12/03/2020 Procedure Pass [facility], Ct Scan - [address] [address] Social History Tobacco Use Types Packs/Day Years [...] AM EDT documented as of this encounter Plan of Treatment Upcoming Encounters Date Type Department Care Team (Late st Contact Info) Description 05/25/2025 4:30 PM EDT Office Visit [facility] Rheumatology 22 [place] [address] Emily Ireland MD [address] [facility], [address] [place] [address] [email or web address] 05/31/2025 10:20 AM EDT Office Visit [facility] [address] [facility] [address] [place] [address] Gbaby Bell MD [address] [facility] [address] [place] [address] 06/12/2025 12:40 PM EDT Office Visit [facility] [address] [facility] 3rd [facility], [address] [place] [address] Goran Swartz MD 22 [facility], [address] [address] 08/29/2025 10:20 AM EST Office Visit [facility] [address] [facility] 3rd Floor, [address] [place] [address] Goran Swartz MD [address] [place] [address], [address] [address] 09/18/2025 1:20 PM EST Office Visit [facility] [address] [place] [address] Kit Anthony DO 22 [place] [address] documented as of this encounter Visit Diagnoses [...] documented as of this encounter Care Teams Personal Lines Account Executive Relationship Specialty Start Date End Date Cole Ott MD [address] [place] [address] [email or web address] PCP - General Family Medicine 11/17/20 04/22/21 Gabby Bell MD [address] [address] [email or web address] PCP - General Family Medicine 04/23/21 Gabby Bell MD [address] [address] [email or web address] Insurance Assigned Provider 11/28/23 Diana Wren, OT 30 [place] [address] Transitions Outpatient Physical Therapist AssistantProfile Mill Operator Tape Control Therapy 03/18/23 Diana Wren, OT 30 [place] [address] Transitions Outpatient Physical Therapist AssistantProfile Mill Operator Tape Control Therapy 08/03/23 Diana Wren, OT 30 [place] [address] [email or web address] Transitions Outpatient Physical Therapist AssistantProfile Mill Operator Tape Control Therapy 11/02/2307/17 Shaji Zeng MD [address] Carolina Garces [address] [address] Orthopedic Surgery 02/08/25 documented as of this encounter Additional Source Comments The information contained in this document represents components of the legal health record. It is not the complete legal health record.[facility]
--- OUTSIDE RECORDS SUMMARY | 2025-05-01 15:31 | XMS_ITS | Encounter Summary ---
Author Organization [facility] Address [address] [place] [address] [place] [address] Phone Care Team Providers Care Commercial Litigation Paralegal Name Role Phone Cole Ott MD Primary Care Provider + [phone] Gabby Bell MD Primary Care Provider + [phone] Gabby Bell MD Unavailable [phone] Diana Wren OT Unavailable +[phone] Diana Wren OT Unavailable [phone] Diana Wren OT Unavailable [phone] Shaji Zeng MD Unavailable [phone] Encounter Details Date Type Department Care Team (Late st Contact Info) Description 12/11/2020 Procedure Pass [facility], Ct Scan - [address] [id number] Social History Tobacco Use Types Packs/Day Years [...] 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 Wish to be (Past 1 Month) No 12/11/2020 10:15 AM EDT Wandy Lam cie, RN 2. Non-Specific Active Suicidal Thoughts (Past 1 Month) No 12/11/2020 10:15 AM EDT Wandy Lam cie, RN 6. Suicidal Behavior (Lifetime) No 12/11/2020 10:15 AM EDT Wandy Lam cie, RN documented as of this encounter Plan of Treatment Upcoming Encounters Date Type Department Care Team (Late st Contact Info) Description 05/25/2025 4:30 PM EDT Office Visit [facility] Rheumatology 22 [place] [address] Emily Ireland MD [address] [place] [address], [address] [place] [address] [email or web address] 05/31/2025 10:20 AM EDT Office Visit [facility] [address] [facility] [address] [place] [address] Gabby Bell MD 15 [facility] [address] [place] [address] 06/12/2025 12:40 PM EDT Office Visit [facility] [address] [place] [address] 3rd Floor, [address] [place] [address] Goran Swartz MD [address] [place] [address], [address] [place] [address] 08/29/2025 10:20 AM EST Office Visit [facility] [address] [place] [address] 3rd Floor, [address] [place] [address] Goran Swartz MD 22 [facility], [address] [place] [address] 09/18/2025 1:20 PM EST Office Visit [facility] 22 [place] [address] Kit Anthony DO 22 [place] [address] [email or web address] documented as of this encounter Visit Diagnoses [...] as of this encounter Care Teams Commercial Litigation Paralegal Relationship Specialty Start Date End Date Cole Ott MD [address] [place] [address] PCP - General Family Medicine 11/17/20 04/22/21 Gabby Bell MD [address] [place] [address] PCP - General Family Medicine 04/23/21 Gabby Bell MD [address] [place] [address] [email or web address] Insurance Assigned Provider 11/28/23 Wren Diana Denise, OT 30 [place] [address] Transitions Player Services RepresentativeWarehouse Processor Therapy 03/18/23 Diana Wren, OT 30 [place] [address] [email or web address] Transitions Player Services RepresentativeWarehouse Processor Therapy 08/03/23 Diana Wren, OT 30 [place] [address] [email or web address] Transitions Player Services RepresentativeWarehouse Processor Therapy 11/02/2307/17 Shaji Zeng MD [facility] Carolina Mili [address] [address] Orthopedic Surgery 02/08/25 documented as of this encounter Additional Source Comments The information contained in this document represents components of the legal health record. It is not the complete legal health record.[facility]
--- OUTSIDE RECORDS SUMMARY | 2025-05-01 15:31 | XMS_ITS | Encounter Summary ---
Author Organization [facility] Address [address] [facility] [address] [place] [address] Phone Care Team Providers Care Scaleman Name Role Phone Gabby Bell MD Primary Care Provider [phone] Gabby Bell MD Unavailable [phone] Diana Wren OT Unavailable [phone] Shaji Zeng MD Unavailable [phone] Encounter Details Date Type Department Care Team (Late st Contact Info) Description 08/05/2023 Transcribe Orders [facility] Specimen Processing 30 [place] [address] Gabby Bell MD 15 [facility] [address] [place] [address] [email or web address] Social History Tobacco Use Types Packs/Day Years [...] high school, GED, job training, learning the Filipino language, technical skills, or developing parenting skills)? 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 Not on file documented as of this encounter Plan of Treatment Upcoming Encounters Date Type Department Care Team (Late st Contact Info) Description 05/25/2025 4:30 PM EDT Office Visit [facility] Rheumatology 22 [place] [address] Emily Ireland MD 22 [facility], [address] [place] [address] [email or web address] 05/31/2025 10:20 AM EDT Office Visit [facility] [address] [facility] [address] [place] [address] Gabby Bell MD [address] [address] 06/12/2025 12:40 PM EDT Office Visit [facility] [address] [place] [address], [address] [place] [address] Goran Swartz MD [address] [place] [address] 08/29/2025 10:20 AM EST Office Visit [address], [address] [address] Goran Swartz MD [address] [place] [address] 09/18/2025 1:20 PM EST Office Visit [facility] [address] [place] [address] Kit Anthony DO [address] [place] [address] [email or web address] documented as of this encounter Visit Diagnoses Not on filedocumented in this encounter Additional Health Concerns Infection Onset Date Last Indicated Resolved Time CoV-Risk Comment:Per note documentation 11/01/2023 11/01/2023 12:21 PM EDT documented as of this encounter Care Teams Scaleman Relationship Specialty Start Date End Date Gabby Bell MD [address] [address] PCP - General Family Medicine 04/23/21 Gabby Bell MD [address] [address] [email or web address] Insurance Assigned Provider 11/28/23 Diana Wren, OT [address] [place] [address] [email or web address] Transitions Byproducts OperatorInweaver Therapy 11/02/2307/17 Shaji Zeng MD [facility] Silvestre Mili [address] [address] Orthopedic Surgery 02/08/25 documented as of this encounter Additional Source Comments The information contained in this document represents components of the legal health record. It is not the complete legal health record.[facility]
--- OUTSIDE RECORDS SUMMARY | 2025-05-01 15:31 | XMS_ITS | Encounter Summary ---
Author Organization [facility] Address [address] [place] [address] [place] [address] Phone Care Team Providers Care Automatic Dry Starch Operator Name Role Phone Gabby Bell MD Primary Care Provider [phone] Gabby Bell MD Unavailable [phone] Diana Wren OT Unavailable [phone] Diana Wren OT Unavailable [phone] Diana Wren OT Unavailable [phone] Shaji Zeng MD Unavailable [phone] Encounter Details Date Type Department Care Team (Late Contact Info) Description 02/27/2022 Procedure Pass [facility], Ct Scan - [address] [id number] Social History Tobacco Use Types Packs/Day Years [...] 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, [address] [place] [address] [email or web address] 05/31/2025 10:20 AM EDT Office Visit [facility] [address] [facility] [address] [place] [address] Gabby Bell MD [address] [facility] [address] [place] [address] 06/12/2025 12:40 PM EDT Office Visit [facility] 22 [facility] 3rd [facility], [address] [place] [address] Goran Swartz MD [address] 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 Infection Utility 11/01/2013 11/01/2013 10/08/2022 1:42 A M EST CoV-Risk 12/12/2022 12/12/2022 12/23/2022 1:22 AM EDT CoV-Risk Comment:Per note documentation 11/01/2023 11/01/2023 12:21 PM EDT documented as of this encounter Care Teams Automatic Dry Starch Operator Relationship Specialty Start Date End Date Gabby Bell MD [address] [address] PCP - General Family Medicine 04/23/21 Gabby Bell MD [address] [address] Insurance Assigned Provider 11/28/23 Diana Wren, OT 30 [place] [address] Transitions Architecture ProfessorIndustrial Eng Therapy 03/18/23 Diana Wren, OT 30 [place] [address] Transitions Architecture ProfessorIndustrial Eng Therapy 08/03/23 Diana Wren, OT 30 [place] [address] Transitions Architecture ProfessorIndustrial Eng Therapy 11/02/2307/17 Shaji Zeng MD [facility] Carolina Garces [address] [address] Orthopedic Surgery 02/08/25 documented as of this encounter Additional Source Comments The information contained in this document represents components of the legal health record. It is not the complete legal health record.[facility]
--- OUTSIDE RECORDS SUMMARY | 2025-05-01 15:31 | XMS_ITS | Encounter Summary ---
Author Organization [facility], Address [address] [place] [address] Phone Care Team Providers Care Communications Analyst Name Role Phone Gabby Bell MD Primary Care Provider Encounter Details Date Type Department Care Team (Late Contact Info) Description 02/08/2021 Orders Only [facility] - [facility] [address] [facility] 3 [place] [id number] Kodi Hewitt MD [address] [facility] [place] [address] Chronic kidney disease stage 4 (HCC) Social [...] on file Sexual Orientation Not on file COVID-19 Exposure Response Date Recorded In the last month, have you been in contact with someone who was confirmed or suspected to have Coronavirus / COVID-19? No / Unsure 01/11/2021 2:03 PM EDT documented as of this encounter Plan of Treatment Upcoming Encounters Date Type Department Care Team (Late Contact Info) Description 11/02/2025 11:00 AM EDT Office Visit [facility], - Tracy Gutierrez [address] [place] [phone] Kodi Hewitt MD [address] [place] [phone] documented as of this encounter Visit Diagnoses Diagnosis Chronic kidney disease stage 4 (HCC) documented in this encounter Care Teams Communications Analyst Relationship Specialty Start Date End Date Gabby Bell MD [address] [place] [address] PCP - General Family Medicine 05/17/21 documented as of this encounter
--- OUTSIDE RECORDS SUMMARY | 2025-05-01 15:31 | XMS_ITS | Encounter Summary ---
Author Organization [facility] Address [address] [place] [address] Phone Care Team Providers Care Airframe And Powerplant Mechanic Name Role Phone Cole Ott MD Primary Care Provider + [phone] Gabby Bell MD Primary Care Provider + [phone] Gabby Bell MD Unavailable [phone] Diana Wren OT Unavailable [phone] Diana Wren OT Unavailable [phone] Diana Wren OT Unavailable [phone] Shaji Zeng MD Unavailable [phone] Encounter Details Date Type Department Care Team (Late Contact Info) Description 12/14/2020 Procedure Pass [place] Admitting Dept - [facility] Department 30 [place] [address] Social History Tobacco Use Types Packs/Day Years [...] 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 [place] [address] 06/12/2025 12:40 PM EDT Office Visit [facility] [address] 3rd Floor, [address] [place] [address] Goran Swartz MD [address] [place] [address], [address] [address] 08/29/2025 10:20 AM EST Office Visit [facility] [address] [facility] 3rd Floor, [address] [place] [address] Goran Swartz MD [address] [place] [address], [address] [address] 09/18/2025 1:20 PM EST Office Visit [facility] [address] [place] [address] Kit Anthony DO [address] [place] [address] documented as of this encounter Visit Diagnoses [...] documented as of this encounter Care Teams Airframe And Powerplant Mechanic Relationship Specialty Start Date End Date Cole Ott MD [address] [place] [address] [email or web address] PCP - General Family Medicine 11/17/20 04/22/21 Gabby Bell MD [address] [address] [email or web address] PCP - General Family Medicine 04/23/21 Gabby Bell MD [address] [address] Insurance Assigned Provider 11/28/23 Diana Wren, OT 30 [place] [address] [email or web address] Transitions Health Informatics SpecialistInvestigator Vice Therapy 03/18/23 Diana Wren, OT 30 [place] [address] [email or web address] Transitions Health Informatics SpecialistInvestigator Vice Therapy 08/03/23 Diana Wren, OT 30 [place] [address] [email or web address] Transitions Health Informatics SpecialistInvestigator Vice Therapy 11/02/2307/17 Shaji Zeng MD [address] Carolina Garces [facility] 201 [place] [address] Orthopedic Surgery 02/08/25 documented as of this encounter Additional Source Comments The information contained in this document represents components of the legal health record. It is not the complete legal health record.[facility]
--- OUTSIDE RECORDS SUMMARY | 2025-05-01 15:31 | XMS_ITS | Encounter Summary ---
Author Organization [facility] Address [address] [place] [address] Phone Care Team Providers Care Concrete Worker Name Role Phone Cole Ott MD Primary Care Provider + [phone] Gabby Bell MD Primary Care Provider + [phone] Gabby Bell MD Unavailable [phone] Diana Wren OT Unavailable +[phone] Diana Wren OT Unavailable [phone] Diana Wren OT Unavailable [phone] Shaji Zeng MD Unavailable +[phone] Encounter Details Date Type Department Care Team (Late Contact Info) Description 12/17/2020 Procedure Pass [place] Admitting Dept - [facility] Department 30 [place] [address] Social History Tobacco Use Types Packs/Day Years [...] 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 [place] [address] 06/12/2025 12:40 PM EDT Office Visit [facility] [address] 3rd Floor, [address] [place] [address] Goran Swartz MD [address] [place] [address], [address] [address] 08/29/2025 10:20 AM EST Office Visit [facility] 22 [facility] 3rd Floor, [address] [place] [address] Goran Swartz MD [address] [place] [address], [address] [address] 09/18/2025 1:20 PM EST Office Visit [facility] [address] [place] [address] Kit Anthony DO [address] [place] [address] documented as of this encounter Visit Diagnoses [...] documented as of this encounter Care Teams Concrete Worker Relationship Specialty Start Date End Date Cole Ott MD [address] [place] [address] [email or web address] PCP - General Family Medicine 11/17/20 04/22/21 Gabby Bell MD [address] [address] [email or web address] PCP - General Family Medicine 04/23/21 Gabby Bell MD [address] [address] Insurance Assigned Provider 11/28/23 Diana Wren, OT 30 [place] [address] [email or web address] Transitions [place] Program CoordinatorSanitarian Aide Therapy 03/18/23 Diana Wren, OT 30 [place] [address] [email or web address] Transitions [place] Program CoordinatorSanitarian Aide Therapy 08/03/23 Diana Wren, OT 30 [place] [address] [email or web address] Transitions [place] Program CoordinatorSanitarian Aide Therapy 11/02/2307/17 Shaji Zeng MD [address] Carolina Garces [facility] 201 [place] [address] Orthopedic Surgery 02/08/25 documented as of this encounter Additional Source Comments The information contained in this document represents components of the legal health record. It is not the complete legal health record.[facility]
--- OUTSIDE RECORDS SUMMARY | 2025-05-01 15:31 | XMS_ITS | Encounter Summary ---
Author Organization [facility] Address [address] [place] [address] Phone Care Team Providers Care Optometrist Owner Name Role Phone Cole Ott MD Primary Care Provider + [phone] Gabby Bell MD Primary Care Provider + [phone] Gabby Bell MD Unavailable [phone] Diana Wren OT Unavailable [phone] Diana Wren OT Unavailable [phone] Diana Wren OT Unavailable [phone] Shaji Zeng MD Unavailable [phone] Encounter Details Date Type Department Care Team (Late st Contact Info) Description 12/04/2020 Procedure Pass [facility] [address] [place] [address] Social History Tobacco Use Types Packs/Day Years [...] Description 05/25/2025 4:30 PM EDT Office Visit [facility] Rheumatology 22 [place] [address] Emily Ireland MD 22 [facility], [address] [place] [address] [email or web address] 05/31/2025 10:20 AM EDT Office Visit [facility] [place] [facility] [address] [facility] [address] [place] [address] Gabby Bell MD 15 [facility] [address] [place] [address] 06/12/2025 12:40 PM EDT Office Visit [facility] [address] [facility], [address] [place] [address] Goran Swartz MD 22 [facility], [address] [address] 08/29/2025 10:20 AM EST Office Visit [facility] [address] [facility] [facility], [address] [place] [address] Goran Swartz MD [address] [place] [address], [address] [address] 09/18/2025 1:20 PM EST Office Visit [facility] [address] [place] [address] Kit Anthony DO 22 [place] [address] documented as of this encounter Visit Diagnoses [...] documented as of this encounter Care Teams Optometrist Owner Relationship Specialty Start Date End Date Cole Ott MD [address] [place] [address] [email or web address] PCP - General Family Medicine 11/17/20 04/22/21 Gabby Bell MD [address] [address] [email or web address] PCP - General Family Medicine 04/23/21 Gabby Bell MD [address] [address] [email or web address] Insurance Assigned Provider 11/28/23 Diana Wren, OT 30 [place] [address] Transitions Senior Project AccountantRefrigeration Service Inspector Therapy 03/18/23 Diana Wren, OT 30 [place] [address] Transitions Senior Project AccountantRefrigeration Service Inspector Therapy 08/03/23 Diana Wren, OT 30 [place] [address] [email or web address] Transitions Senior Project AccountantRefrigeration Service Inspector Therapy 11/02/2307/17 Shaji Zeng MD [address] [address] Orthopedic Surgery 02/08/25 documented as of this encounter Additional Source Comments The information contained in this document represents components of the legal health record. It is not the complete legal health record.[facility]
--- OUTSIDE RECORDS SUMMARY | 2025-05-01 15:31 | XMS_ITS | Encounter Summary ---
Author Organization [facility] Address [address] [facility] [address] [place] [address] Phone Care Team Providers Care Superintendent Generating Plant Name Role Phone Gabby Bell MD Primary Care Provider [phone] Gabby Bell MD Unavailable [phone] Diana Wren OT Unavailable [phone] Shaji Zeng MD Unavailable [phone] Encounter Details Date Type Department Care Team (Latest Contact Info) Description 08/05/2023 Transcribe Orders [facility] Specimen Processing 30 [place] [address] Kit Anthony DO 22 [place] [address] Type 2 diabetes mellitus with diabetic polyneuropathy, unspecified whether computer terminal operator insulin use (Primary Dx) Social History Tobacco Use Types [...] high school, GED, job training, learning the Turkish language, technical skills, or developing parenting skills)? 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 [place] [address] 06/12/2025 12:40 PM EDT Office Visit [facility] [address], [address] [place] [address] Goran Swartz MD 22 [facility], [address] [address] 08/29/2025 10:20 AM EST Office Visit [facility] [address], [address] [place] [address] Goran Swartz MD 22 [facility], [address] [address] 09/18/2025 1:20 PM EST Office Visit [facility] [address] [place] [address] Kit Anthony DO 22 [place] [address] documented as of this encounter Results * Microalbumin/creatinine ratio, random urine (08/11/2023 3:50 PM EST) URINE MICROALBUMIN <1.2 0 - 2.3 mg/dL [facility] URINE CREATININE 24 mg/dL [facility] MICROALB/CRE RATIO NOT CALCULATED 0 - 20 mg/g Cre [facility] Comment:due to Microalbumin <1.2 Urine (Urine) 08/11/2023 3:5 0 PM EST 08/11/2023 3:54 PM EST us Kit Anthony DO URINE ORDERABLES Final Result [address] [address] documented in this encounter Visit Diagnoses Diagnosis Type 2 diabetes mellitus with diabetic polyneuropathy, unspecified whether computer terminal operator insulin use- Primary documented in this encounter Additional Health Concerns Infection Onset Date Last Indicated Resolved Time CoV-Risk Comment:Per note documentation 11/01/2023 11/01/2023 12:21 PM EDT documented as of this encounter Care Teams Superintendent Generating Plant Relationship Specialty Start Date End Date Gabby Bell MD [address] [address] PCP - General Family Medicine 04/23/21 Gabby Bell MD [address] [address] Insurance Assigned Provider 11/28/23 Diana Wren, OT 30 [place] [address] Transitions Interior Block WirerUpholstery Cutter Therapy 11/02/2307/17 Shaji Zeng MD [facility] Silvestreleta Mili [address] [address] Orthopedic Surgery 02/08/25 documented as of this encounter Additional Source Comments The information contained in this document represents components of the legal health record. It is not the complete legal health record.[facility]
--- OUTSIDE RECORDS SUMMARY | 2025-05-01 15:31 | XMS_ITS | Encounter Summary ---
Author Organization [facility] Address [address] [facility] [address] [place] [address] Phone Care Team Providers Care Chipper Machine Operator Name Role Phone Gabby Bell MD Primary Care Provider [phone] Gabby Bell MD Unavailable [phone] Shaji Zeng MD Unavailable [phone] Reason for Visit * Reason Comments Medication Refill Encounter Details Date Type Department Care Team (Late st Contact Info) Description 04/30/2025 Refill [facility] [address] [place] [address] Kit Anthony DO 22 [place] [address] [email or web address] Medication Refill Social History Tobacco Use Types [...] 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 Upcoming visit: 09/18/2025 Kit Anthony DO - Endocrinology [facility] ACTIONS TAKEN BY Niki Sesay MA - Criteria met. Vitamins, Minerals, Supplements, OTCs Rx Protocol - calcitriol Criteria met; renew for up to 12 months. Visit in the past 24 months: Yes documented in this encounter Plan of Treatment Upcoming Encounters Date Type Department Care Team (Late st Contact Info) Description 05/25/2025 4:30 PM EDT Office Visit [facility] Rheumatology [address] [place] [address] Emily [place] MD 22 [facility], [address] [place] [address] [email or web address] 05/31/2025 10:20 AM EDT Office Visit [facility] [place] [facility] 15 [facility] [address] [place] [address] Gabby Bell MD 15 [facility] [address] [place] [address] 06/12/2025 12:40 PM EDT Office Visit [facility] [address], [address] [place] [address] Goran Swartz MD 22 [facility], [address] [address] 08/29/2025 10:20 AM EST Office Visit [facility] [address], [address] [place] [address] Goran Swartz MD [address] [address] 09/18/2025 1:20 PM EST Office Visit [facility] 22 [place] [address] Kit Anthony DO 22 [place] [address] documented as of this encounter Visit Diagnoses Not on filedocumented in this encounter Care Teams Chipper Machine Operator Relationship Specialty Start Date End Date Gabby Bell MD [address] [address] PCP - General Family Medicine 04/23/21 Gabby Bell MD [address] [address] Insurance Assigned Provider 11/28/23 Shaji Zeng MD [address] [address] Orthopedic Surgery 02/08/25 documented as of this encounter Additional Source Comments The information contained in this document represents components of the legal health record. It is not the complete legal health record.[facility]
--- OUTSIDE RECORDS SUMMARY | 2025-05-01 15:32 | XMS_ITS | Encounter Summary ---
Author Organization [facility] Address [address] [facility] [address] [place] [address] Phone Care Team Providers Care Plate Take Out Worker Name Role Phone Gabby Bell MD Primary Care Provider [phone] Gabby Bell MD Unavailable [phone] Diana Wren OT Unavailable [phone] Shaji Zeng MD Unavailable [phone] Encounter Details Date Type Department Care Team (Late st Contact Info) Description 11/01/2023 Procedure Pass [facility], [facility] [address] [place], [place] [id number] Social History Tobacco Use Types Packs/Day Years [...] high school, GED, job training, learning the Macanese language, technical skills, or developing parenting skills)? 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 Not on file Not on file documented as of this encounter Functional Status * Calculated C-SSRS Risk Score (Lifetime/Recent) Answer Date of Assessment Author No Risk Indicated 11/01/2023 9:03 AM EDT Aquiles Oneil RN * [place] Suicide Severity Rating Scale (Screener/Recent Self-Report) Question [...] Description 05/25/2025 4:30 PM EDT Office Visit [facility] Rheumatology 22 [place] [address] Emily Ireland MD 22 [facility], [address] [place] [address] [email or web address] 05/31/2025 10:20 AM EDT Office Visit [facility] [place] [facility] 15 [facility] [address] [place] [address] Gabby Bell MD [address] [facility] [address] [place] [address] 06/12/2025 12:40 PM EDT Office Visit [facility] [address] [place] [address], [address] [place] [address] Goran Swartz MD 22 [facility], [address] [place] [address] 08/29/2025 10:20 AM EST Office Visit [facility] [address] [place] [address], [address] [place] [address] Goran Swartz MD 22 [facility], [address] [address] 09/18/2025 1:20 PM EST Office Visit [facility] 22 [place] [address] Kit Anhtony DO 22 [place] [address] [email or web address] documented as of this encounter Visit Diagnoses Not on filedocumented in this encounter Additional Health Concerns Infection Onset Date Last Indicated Resolved Time CoV-Risk Comment:Per note documentation 11/01/2023 11/01/2023 12:21 PM EDT documented as of this encounter Care Teams Plate Take Out Worker Relationship Specialty Start Date End Date Gabby Bell MD [address] [address] [email or web address] PCP - General Family Medicine 04/23/21 Gabby Bell MD [address] [address] [email or web address] Insurance Assigned Provider 11/28/23 Diana Wren, OT [address] [place] [address] [email or web address] Transitions M1 Armor CrewmanBilingual Hr Generalist Therapy 11/02/2307/17 Shaji Zeng MD [facility] Isaccanitra Mili [address] [address] Orthopedic Surgery 02/08/25 documented as of this encounter Additional Source Comments The information contained in this document represents components of the legal health record. It is not the complete legal health record.[facility]
--- OUTSIDE RECORDS SUMMARY | 2025-05-01 15:32 | XMS_ITS | Clinical Summary ---
Author Organization [facility] Address [address] [facility] [address] [place] [phone] Phone Care Team Providers Care Com Writer Name Role Phone Gabby Bell MD Primary Care Provider Gabby Bell MD Unavailable [phone] Shaji Zeng MD Unavailable Allergies Active Allergy Reactions Criticality Noted Date Comments Hay Fever And Allergy Relief 04/23/2023 Latex, Natural Rubber Rash Low 10/29/2022 Not sure if it is hives. Pt identified having a latex allergy. Potential food intolerances reviewed; pt does NOT have food allergies related to latex. Aquiles Boyer, DTR Clinical Nutrition [phone] (Tie line) Levofloxacin Tendonitis High 11/17/2020 Meperidine Nausea Only Low 08/28/2021 Adhesive Rash Low 04/09/2021 Can use paper tape. Not sure which kind of tape is a problem Medications lancets (FREESTYLE) 28 gauge MiscIndications :Type 2 diabetes mellitus with diabetic polyneuropathy, unspecified whether alf insulin use Check bg 3 times daily before meals 300 each 1 08/19/20 22 Active FREESTYLE LITE METER meter kitIndications: Type 2 diabetes mellitus with diabetic polyneuropathy, unspecified whether exterminator helper termite insulin use Use as instructed 1 each 01/12/20 24 Active insulin pen needles, disposable, (BD ULTRA-FINE MINI PEN NEEDLE) 31 gauge x 3/16 NdleIndications :Type 2 diabetes mellitus with diabetic polyneuropathy, unspecified whether exterminator helper termite insulin use Use to administer insulin once daily 100 each 3 02/12/20 24 Active torsemide (DEMADEX) 20 MG tabletIndicatio ns:Medication refill Take 3 tablets (60 mg total) by mouth daily. an additional 20mg in the afternoon prn 270 tablet 3 02/29/20 24 Active Additional Information Patient taking differently: 40 mgOral Daily, an additional 20mg in the afternoon prn, Reported on 03/15/2025 omeprazole (PRILOSEC) 20 MG capsuleIndicati ons:Gastroesoph ageal reflux disease, unspecified whether esophagitis present TAKE 1 CAPSULE(20 MG) BY MOUTH DAILY 90 capsule 3 08/16/20 24 Active atorvastatin (LIPITOR) 40 MG tablet TAKE 1 TABLET(40 MG) BY MOUTH EVERY NIGHT AT BEDTIME 90 tablet 3 08/16/20 24 Active metoprolol tartrate (LOPRESSOR) 25 MG tabletIndicatio ns:Paroxysmal atrial fibrillation Take 1 tablet (25 mg total) by mouth 2 (two) times a day. 180 tablet 3 08/29/19 25 Active levothyroxine (SYNTHROID, LEVOTHROID) 150 MCG tabletIndicatio ns:Hypothyroidi sm TAKE 1 TABLET(150 MCG) BY MOUTH EVERY MORNING 90 tablet 3 10/29/19 25 Active dilTIAZem (CARDIZEM CD) 120 MG 24 hr capsuleIndicati ons:Paroxysmal atrial fibrillation TAKE 1 CAPSULE(120 MG) BY MOUTH DAILY 90 capsule 3 11/01/19 25 Active insulin lispro (ADMELOG, HUMALOG) 100 unit/mL injection penIndications: Type 2 diabetes mellitus with complication, with long-term current use of insulin ADMINISTER 2 TO 12 UNITS UNDER THE SKIN THREE TIMES DAILY WITH MEALS 30 mL 01/21/20 25 Active traMADoL (ULTRAM) 50 mg tabletIndicatio ns:Other closed nondisplaced fracture of proximal end of left humerus with routine healing, subsequent encounter Take 0.5 tablets (25 mg total) by mouth every 4 (four) hours as needed for pain (specific location in comments) (shoulder pain). 15 tablet 02/15/20 25 Active gabapentin (NEURONTIN) 100 MG capsule Take 100 mg by mouth. 01/23/20 25 026 Active lidocaine 4 % Apply 2 patches topically. 01/23/20 25 Active pantoprazole (PROTONIX) 40 MG tablet Take 40 mg by mouth. 01/23/20 25 026 Active polyethylene glycol (MIRALAX) 17 gram packet Take 17 g by mouth. 01/23/20 25 Active FREESTYLE LITE Strp stripsIndicatio ns:Type 2 diabetes mellitus with diabetic polyneuropathy, unspecified whether exterminator helper termite insulin use USE DIRECTED TO TEST EVERY DAY 100 strip 3 03/15/20 25 Active dulaglutide (TRULICITY) 1.5 mg/0.5 mL subcutaneous injectionIndica tions:Type 2 diabetes mellitus with complication, with long-term current use of insulin,Type 2 diabetes mellitus with diabetic polyneuropathy, unspecified whether exterminator helper termite insulin use Inject 0.5 mL (1.5 mg total) under the skin once a week. 9 mL 1 03/15/20 25 Active insulin glargine U-300 (TOUJEO SOLOSTAR U-300 INSULIN) 300 unit/mL (1.5 mL) subcutaneous injection penIndications: Type 2 diabetes mellitus with complication, with long-term current use of insulin,Type 2 diabetes mellitus with diabetic polyneuropathy, unspecified whether exterminator helper termite insulin use Inject 30 Units under the skin daily. 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 TAKE 1 TABLET(300 MG) BY MOUTH DAILY 90 tablet 04/25/20 25 Active WIXELA INHUB 250-50 mcg/dose DISKUSIndicatio ns:Chronic cough INHALE 1 PUFF INTO THE LUNGS TWICE DAILY 180 each 04/26/20 25 Active calcitriol (ROCALTROL) 0.5 MCG capsule TAKE 1 CAPSULE(0.5 MCG) BY MOUTH TWICE DAILY 180 capsule 1 05/01/20 25 Active JARDIANCE 10 mg tabletIndicatio ns:Chronic diastolic heart failure TAKE 1 TABLET(10 MG) BY MOUTH DAILY 90 tablet 3 03/28/20 24 08/28/2 025 Discontinued allopurinol (ZYLOPRIM) 300 MG tabletIndicatio ns: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 180 capsule 1 03/01/20 025 Discontinued Active Problems Problem Noted Date Diagnosed Date Fracture 03/15/2025 Assessment & Plan (03/15/2025 4:00 PM EDT): She fractured her left arm on 01/16/2025 from standing position. She does not recall slipping passing out she just fell. Previous DEXA scan shows that she does not have osteopenia or osteoporosis the last one was done in 2020 requested a repeat study. I informed her that though the radiology department is a year behind so she should call today if she can to schedule the study. Closed fracture of proximal end of left humerus with routine healing 02/16/2025 Assessment & Plan (02/16/2025 9:36 AM EDT): Reports acute wosrening of pain since sleeping in bed for the first time last night. Requests trmadol refill. Recommend calling her orthopedist for urgent f/u, will likely need repeat imaging for ?displacement. Provided a short course of tramadol and explained that it is not common to need this degree of pain control 4 weeks after a fracture; future pain mgmt should come from her orthopedist. If care of a temporarily disabled person becomes overwhelming for Lilia, who has multiple comorbidities herself, they are welcome to reach back out for assistnace in setting up HOMICIDE DETECTIVE services for Merline. Orders: traMADoL (ULTRAM) 50 mg tablet; Take 0.5 tablets (25 mg total) by mouth every 4 (four) hours as needed for pain (specific location in comments) (shoulder pain). Subjective hearing loss 02/16/2025 Assessment & Plan (02/16/2025 9:36 AM EDT): Discussed that even if she's not bothered by the hearing loss per se, treating it with hearing aids will decrease her risk of falls. Merline agrees to re-consult audiology and consider amplification. Lilia would like to get re-testedtoo. I have referred them both. Orders: External Referral to Audiology ([facility]) Anticoagulated 03/17/2024 Assessment & Plan (09/19/2024 1:41 PM EST): Avoid falls, injuries and cuts. Monitor for excessive bruising and bleeding. Assessment & Plan (03/17/2024 11:09 AM EDT): Avoid falls, injuries and cuts. Monitor for excessive bruising and bleeding. Gastroesophageal reflux disease without esophagi tis 03/17/2024 Assessment & Plan (09/19/2024 1:42 PM EST): Avoid late, large, spicy meals. Keep headboard elevated at 45 angle for nighttime. Assessment & Plan (03/17/2024 11:10 AM EDT): Avoid late, large, spicy meals. Keep headboard elevated at 45 angle for nighttime. Class 3 severe obesity due t o excess calories with serious comorbidity and body mass index (BMI) of 40.0 to 44.9 in adult 03/17/2024 Assessment & Plan (09/19/2024 2:07 PM EST): Continue diligent portion control particularly in view of gaining 6 pounds from 243 on 03/17/2024 up to 249 today. Limit concentrated sugars, saturated fats and calories in the diet. Keep well-hydrated. If unable to achieve expected goal consider formal dietary/nutritional support. Assessment & Plan (03/22/2024 10:54 AM EDT): Congratulations on 10 pounds weight loss from 253 on 03/02/2023 down to 243 today and keep it off. Continue diligent portion control. Limit concentrated sugars, saturated fats and calories in the diet. Keep well-hydrated. If unable to achieve expected goal consider formal dietary/nutritional support. Chronic renal impairment, stage 4 (severe) 10/31 Assessment & Plan (02/16/2025 9:36 AM EDT): Repeat BMP. Advised to schedule close f/u with her it teacher, Dr Hewitt. Continue to push hydration, especially in the current heat wave. Appears quite pallid today but had a normal CBC shortly before d/c from rehab. Orders: Basic metabolic panel; Future Assessment & Plan (09/19/2024 1:41 PM EST): Continue close follow-up with it teacher and PCP. Proper hydration. Avoid NSAIDs, antibiotics and other nephrotoxics. Assessment & Plan (03/17/2024 11:08 AM EDT): Continue close follow-up with it teacher and PCP. Proper hydration. Avoid NSAIDs, antibiotics and other nephrotoxics. 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 Topical Arnica versus Biofreeze versus Voltaren gel may provide additional benefit. If symptoms do not improve despite above measures may need to consider local steroid injection. Assessment & Plan (04/01/2022 6:13 PM EDT): Use warm packs over the involved flexor tendon starting from proximal crease intersecting with it and gently massage in a circular spiral motion toward distal end several times daily. Topical Arnica versus Biofreeze versus Voltaren gel may provide additional benefit. If symptoms do not improve despite above measures may need to consider local steroid injection. Chronic rhinitis 02/27/2022 Assessment & Plan (04/23/2023 12:44 PM EDT): History of post-nasal drip which could be contributing to cough, though, this does not appear to be an active issue at present. -Patient was encouraged to use Flonase and a non-sedating antihistamine as needed Assessment & Plan (11/18/2022 2:59 PM EDT): Postnasal drip which could be contributing to cough. -Patient was encouraged to use Flonase and nonsedating antihistamine as needed Assessment & Plan (07/28/2022 1:01 PM EST): Postnasal drip which could be contributing to cough. Also takes an antihistamine. -Continue Flonase Assessment & Plan (02/27/2022 12:42 PM EDT): Postnasal drip which has been more prominent in the setting of high pollen levels and could be contributing to cough. Taking an antihistamine. -Trial of Flonase--patient was advised to call if she does not experience improvement after approximately 2 weeks (at which time, could try azelastine or ipratropium nasal sprays) Gout due to renal impairment 10/30/2021 Overview (07/31/2023): Last Assessment & Plan: New set of lab work requested today-standing orders in [facility]. Procedure: After an informed oral consent, under [...] Continue proper hydration and low purine diet. Assessment & Plan (09/19/2024 2:06 PM EST): Well-controlled since she did not suffer from any gouty attacks for over a year. Carefully continue allopurinol 300 mg daily-get monitoring labs today and prior to next visit-standing orders in [facility]. Continue proper hydration and low purine diet. Call if problems or questions. Monitor for unusual abdominal pain, skin rashes, nausea or diarrhea. Assessment & Plan (03/22/2024 10:52 AM EDT): Carefully continue allopurinol 300 mg daily-get monitoring labs today and prior to next visit-standing orders in [facility]. Continue proper hydration and low purine diet. Call if problems or questions. Monitor for unusual abdominal pain, skin rashes, nausea or diarrhea. Her request I provided prescription for short prednisone taper so she can have it on hand for planned 1 month cruise travel in May 2024. Assessment & Plan (03/02/2023 4:04 PM EDT): Carefully continue allopurinol 300 mg daily-get monitoring labs today and prior to next visit-standing orders in [facility]. Continue proper hydration and low purine diet. Call if problems or questions. Monitor for unusual abdominal pain, skin rashes, nausea or diarrhea. Assessment & Plan (12/07/2022 10:29 AM EDT): Carefully continue allopurinol 300 mg daily-get monitoring labs today and prior to next visit-standing orders in [facility]. Continue proper hydration and low purine diet. Call if problems or questions. Monitor for unusual abdominal pain, skin rashes, nausea or diarrhea. Osteoarthritis of right shoulder 05/30/2021 Assessment & Plan (05/30/2021 4:36 PM EDT): Procedure: After an informed oral consent, under sterile conditions using Ethyl chloride spray for local anesthesia I have injected 40 mg DepoMedrol and 2 cc 1% Lidocaine into Right shoulder from anterior approach uneventfully. Details of post-procedure care were explained to the patient in the office and given in writing. Provider: Emily Ireland MD Patient: Merline Amor : 1950 Date: 05/30/2021 Type 2 diabetes mellitus wit h complication, with long-term current use of insulin 05/30/2021 Assessment & Plan (03/15/2025 4:13 PM EDT): Controlled. Hemoglobin A1c 6.2% will not make any changes to her regimen. Assessment & Plan (09/19/2024 1:41 PM EST): Continue close follow-up with her protective signal operations supervisor, diabetic nurse educator, director of social work to optimize blood glucose control. Assessment & Plan (05/30/2024 2:07 PM EDT): Good control hemoglobin A1c 6.4% continue current regiment no changes required. Repeat lab work fasting prior to the follow-up visit in 6 months. Assessment & Plan (03/22/2024 10:52 AM EDT): Continue close follow-up with her protective signal operations supervisor, diabetic nurse educator, director of social work to optimize blood glucose control. Assessment & Plan (11/25/2023 2:00 PM EDT): Based on hemoglobin A1c of 6.9% she is controlled. But lately her glucose levels are higher and this is due to corticosteroid administration. I will not make any changes to her regimen. Follow-up in 6 months. Assessment & Plan (11/01/2023 9:58 PM EDT): -Switch from toujeo to lantus and decrease by 20%, patient had n/v -Monitor point of care, cover with insulin sliding scale as needed -Follow up hba1c Assessment & Plan (08/26/2023 1:37 PM EST): Controlled continue current regimen no changes required. Assessment & Plan (08/02/2023 5:14 PM EST): Patient would like to take her own Toujeo. This was not brought in. Patient receiving Premeal Humalog and sliding scale Humalog. Glucose levels good Assessment & Plan (06/10/2022 3:49 PM EDT): I explained that the dulaglutide is an appetite suppressant and that is probably part of why she is eating less which, in turn, probably helps with glycemic control. I am happy to hear that it is working well for her and that she is tolerating it well. Assessment & Plan (11/05/2021 12:05 AM EDT): DM Hold Trulicity Give Lantus Meal Insulin SSI POCT's With meals and HS Assessment & Plan (07/01/2021 2:49 PM EST): Based on her fasting glucose it is controlled based on her last hemoglobin A1c was controlled. Is too soon to repeat it now. However I do caution that because of her renal insufficiency the hemoglobin A1c may be falsely low. The one issue I have is that I do not have any glucose levels in the afternoon so all I have is the morning glucose and that tells me that the Toujeo is more or less working but I do not know if the Trulicity is working because that will have any preprandial glucose levels in the afternoon. So what I do want her to do is to check her sugars at least twice a day 1 to 2 weeks before she sees me she will always do a fasting glucose a second alternating between lunch, dinner, and bedtime. I will give her a log sheet so that she can follow it prior to the follow-up visit. The other issue is that she is requiring intra-articular corticosteroid injections and this causes postprandial hyperglycemia so I will change her NovoLog correction scale to start administering insulin at glucose of 150 mg/dL. So the scale will be 150-200 =2 units increasing by 2 units every 50 mg/dL. Previously this care was starting at a glucose level of 200 mg/dL. But if her glucose is already at 150 with the corticosteroids and eating food her glucose levels will definitely rise above the reference range. She may have to do this Humalog administration after the intra-articular corticosteroid injections. As it stands now the patient is not using the Humalog. We will continue Trulicity 1.5 mg weekly. I will ask her to increase the Toujeo to 30 units up by 5 units. Assessment & Plan (06/04/2021 10:48 AM EDT): Merline will monitor her blood glucose readings carefully for the next 48-72 hours after today's injection and if necessary adjust antidiabetic therapy accordingly. Primary osteoarthritis involving multiple joints 05/01/2021 Assessment & Plan (09/19/2024 1:40 PM EST): Joint protection, energy conservation, splinting and assistive devices as needed. Gentle, regular exercise routine. Avoid falls, injuries, overuse. Work on bringing her body weight as close as possible ideal range for her height. She may benefit from topical cream such as Arnica, Biofreeze, Aspercreme versus medicated patches such as salonpas, icy hot patch 2-3 times daily and if necessary at bedtime x 3 weeks. Assessment & Plan (03/17/2024 11:05 AM EDT): Joint protection, energy conservation, splinting and assistive devices as needed. Gentle, regular exercise routine. Avoid falls, injuries, overuse. Work on bringing her body weight as close as possible ideal range for her height. She may benefit from topical cream such as Arnica, Biofreeze, Aspercreme versus medicated patches such as salonpas, icy hot patch 2-3 times daily and if necessary at bedtime x 3 weeks. Assessment & Plan (03/02/2023 3:44 PM EDT): Joint protection, energy conservation, splinting and assistive devices as needed. Gentle, regular exercise routine. Avoid falls, injuries, overuse. Work on bringing her body weight as close as possible ideal range for her height. She may benefit from topical cream such as Arnica, Biofreeze, Aspercreme versus medicated patches such as salonpas, icy hot patch 2-3 times daily and if necessary at bedtime x 3 weeks. Assessment & Plan (11/24/2022 2:11 PM EDT): Joint protection, energy conservation, splinting and assistive devices as needed. Gentle, regular exercise routine. Avoid falls, injuries, overuse. Work on bringing her body weight as close as possible ideal range for her height. She may benefit from topical cream such as Arnica, Biofreeze, Aspercreme versus medicated patches such as salonpas, icy hot patch 2-3 times daily and if necessary at bedtime x 3 weeks. Assessment & Plan (06/30/2022 3:17 PM EST): Joint protection, energy conservation, splinting and assistive devices as needed. Gentle, regular exercise routine. Avoid falls, injuries, overuse. Work on bringing her body weight as close as possible ideal range for her height. She may benefit from topical cream such as Arnica, Biofreeze, Aspercreme versus medicated patches such as salonpas, icy hot patch 2-3 times daily and if necessary at bedtime x 3 weeks. Assessment & Plan (06/10/2022 3:51 PM EDT): [employer] Collagen Peptides appears to be an oral collagen supplement. I explained the principle on which this is intended to work. Like most dietary supplements, we do not have any evidence to support this or refute it but I think it is likely a benign intervention and there is no reason she cannot try it for a couple of months. If she does not see improvement at that point I would recommend stopping it as a waste of money. Assessment & Plan (03/17/2022 4:04 PM EDT): Joint protection, energy conservation, splinting and assistive devices as needed. Gentle, regular exercise routine. Avoid falls, injuries, overuse. Work on bringing her body weight as close as possible ideal range for her height. She may benefit from topical cream such as Arnica, Biofreeze, Aspercreme versus medicated patches such as salonpas, icy hot patch 2-3 times daily and if necessary at bedtime x 3 weeks. Assessment & Plan (09/05/2021 10:20 PM EST): Joint protection, energy conservation, splinting and assistive devices as needed. Gentle, regular exercise routine. Avoid falls, injuries, overuse. Work on bringing her body weight as close as possible ideal range for her height. She may benefit from topical cream such as Arnica, Biofreeze, Aspercreme versus medicated patches such as salonpas, icy hot patch 2-3 times daily and if necessary at bedtime x 3 weeks. Assessment & Plan (05/05/2021 10:49 PM EDT): Joint protection, energy conservation, splinting and assistive devices as needed. Gentle, regular exercise routine. Avoid falls, injuries, overuse. Work on bringing her body weight as close as possible ideal range for her height. She may benefit from topical cream such as Arnica, Biofreeze, Aspercreme versus medicated patches such as salonpas, icy hot patch 2-3 times daily and if necessary at bedtime x 3 weeks. Adjustment disorder with mixed anxiety and depre ssed mood 04/23/2021 Assessment & Plan (04/23/2021 11:25 AM EDT): We discussed treatment options. She does not want medication or therapy at this time. Hypoparathyroidism after procedure 02/28/2021 Assessment & Plan (03/15/2025 4:19 PM EDT): Serum calcium levels remain elevated but she has decreased the Rocaltrol so hopefully this will decrease her serum calcium just enough that she does not develop hypocalcemia. I will request phosphorus comprehensive and 24-hour urine calcium which we needed to check on to make sure that her calcium output is not too high. Assessment & Plan (05/30/2024 2:09 PM EDT): Calcium phosphate ratio is 30.8 and it should be below 55 so this is good. Vitamin D level was 26 ng/dL and this should be at least 20. The only issue is elevated serum calcium levels which corrects to 11.3 mg/dL this should be close to 8.5 mg/dL. However whenever we reduced the Rocaltrol she develops hypocalcemia. She does not take any calcium supplements. I will obtain 24-hour urine calcium levels to determine if this is elevated. We would like to maintain the value below 250 mg per 24 hours. I did review that renal ultrasound that was done in 2022 did not show any calcifications. We have to be concerned about extraskeletal calcifications with elevated calcium. She is using torsemide which does help decrease calcium serum levels. She will follow in 6 months time. Assessment & Plan (11/25/2023 2:00 PM EDT): Serum calcium levels are now in the reference range. She should continue Rocaltrol as she is currently doing 2 tablets 1 day and 1 tablet the following day. Will again request comprehensive, phosphorus, magnesium for the follow-up visit. Assessment & Plan (08/26/2023 1:37 PM EST): Her calcium phosphate excretion is 23.5 so this is not bad but the phosphorus is low unclear if that had anything to do with recent renal insufficiency I would think the phosphorus level probably go up. Her serum calcium remains elevated I think it would be a good idea for her to at least try taking Rocaltrol 2 tablets 1 day alternating with 1 tablet to see if this decreases serum calcium. She is going to repeat lab work again in another week just to review her levels. I have asked her to obtain 24- hour urine calcium for evaluation of hypercalciuria. Assessment & Plan (02/18/2023 1:22 PM EDT): Serum calcium levels remain too high for patient with hyperparathyroidism. She is not taking any calcium supplements but is taking Rocaltrol 0.5 mcg twice a day. When she decreased it to once a day she developed hypocalcemia. I think at this point we would like to decrease the Rocaltrol again and since she is not willing to do 0.5 mcg once daily maybe she can alternate 0.5 mcg twice a day with 0.5 mcg daily. She decided not to do this because she does not want to develop hypocalcemia. I did mention that there is possible complications from having the serum calcium elevated but she rather just continue her current regimen. Assessment & Plan (08/22/2022 12:53 PM EST): The patient has hyperparathyroidism yet serum calcium levels are elevated. She is not taking any calcium supplements. She does not believe that she has a lot of dietary calcium intake. Yet serum calcium is 10.8 with albumin of 4.2 that corrects to 10.6 which is elevated. Phosphorus levels are elevated which is expected with hyperparathyroidism. Magnesium levels are low yet serum calcium remains elevated. I do not know the reason why. She is using Rocaltrol but when I stopped all decrease Rocaltrol she ended up in the hospital with hypocalcemia. She does not want to decrease the dose and she did not stop Rocaltrol completely when she was hospitalized she was still taking 0.5 mcg once a day. So this is a difficult situation because the elevated serum calcium could in the long run cause complications such as nephrolithiasis hearing loss cataracts and basal ganglia calcification. Yet I am not certain how to address this issue. She is going to be seeing the it teacher and hopefully he has an ideas as to why her serum calcium is elevated. I will obtain 24-hour urine calcium usually and hyperparathyroidism 24-hour urine calcium is elevated. I am repeating lab work again she may do this prior to the follow-up visit in 6 months because she is going to see her it teacher and she would like him to review the lab work. Assessment & Plan (04/29/2022 2:20 PM EDT): The patient is hypoparathyroid on Rocaltrol 0.5 [...] she believes that either myself or her it teacher discontinue the Tums because of nephrolithiasis. I checked my messages and there is no message from me asking her to discontinue Tums altogether. So I suspect that this is her it teacher. Presently she is uncertain if she is taking Rocaltrol once or twice a day. She needs to get back to me because I need to see exactly what she is doing when I review her lab work. Assessment & Plan (12/31/2021 12:49 PM EDT): It does appear that the patient makes [...] was low. Nevertheless I will check it. Assessment & Plan (07/01/2021 2:45 PM EST): This is a patient who is said to develop hypoparathyroidism status post total thyroidectomy also had 2 parathyroid glands resected. However intact PTH is in the normal reference range so serum calcium levels. Vitamin D and 1, 25 dihydroxy vitamin D have been in the reference range. It does not appear that she requires Rocaltrol. She has not had any adverse effects after coming off the medication. I will repeat lab work again 1 more time prior to her follow-up visit we will check PTH, 1, 25 dihydroxy vitamin D and a comprehensive. Assessment & Plan (04/09/2021 1:59 PM EDT): The dose of Rocaltrol was decreased from [...] will want her to stop Rocaltrol again. Assessment & Plan (02/28/2021 2:44 PM EDT): The patient is on Rocaltrol 0.5 mcg that was recently decreased. If she truly has hyperparathyroidism serum calcium of 9 mg/dl is too high. This could result in complications such as nephrolithiasis which she actually did have. So the question is that she truly have hyperparathyroidism since only 2 of the parathyroid glands were resected so that means that she should still have 2 parathyroid glands intact unless there was vascular damage. I would like to check intact PTH also 1, 25 dihydroxy vitamin D levels. If there are intact PTH is in the normal reference range which may be doubtful since she is on Rocaltrol which could potentially suppress the PTH. In any case if the PTH is normal we should stop the Rocaltrol and see what happens with her calcium levels. She may not require this medication. Spinal stenosis of lumbar region 02/20/2021 Assessment & Plan (02/16/2025 9:36 AM EDT): Pain plan per Dr Delgado and, when seen, pain management. We discussed today that movement is of paramount importance: the less active she remains, the less active she will be able to be, and the worse her pain will become. I encourage her to do whatever limited exercise she is able to engage in. Assessment & Plan (09/19/2024 1:42 PM EST): Chronic and severe that improved markedly after epidural steroid injection 3 weeks ago that allows her to participate in active exercising. In the past she had used TENS units and I advised her to carefully retry it at this time. I also provided her with pamphlet on warm pool exercise program such as [facility] in [place], [place] Assessment & Plan (03/07/2022 2:23 PM EDT): I agree with Merline that her surgical risks are legion. If she is able to manage her back pain without surgery then I would certainly consider that preferable from a safety standpoint. Assessment & Plan (06/19/2021 2:53 PM EDT): Okay to take diazepam once in a while for back pain and spasm. I would not make a habit of it but I don't think it is unreasonable to take a few with her while [place]. Assessment & Plan (05/05/2021 10:50 PM EDT): Chronic and severe that improved markedly after epidural steroid injection 3 weeks ago that allows her to participate in active exercising. In the past she had used TENS units and I advised her to carefully retry it at this time. I also provided her with pamphlet on warm pool exercise program such as [facility] in [place], [place] Assessment & Plan (02/25/2021 3:41 PM EDT): Chronic and severe that prevents her from active exercising. In the past she had used TENS units and I advised her to carefully retry it at this time. I also provided her with pamphlet on warm pool exercise program such as [facility] in [place], [place] Vitamin C deficiency 01/10/2021 Assessment & Plan (03/02/2023 3:47 PM EDT): Continue daily vitamin C supplementation to prevent deficiency. Assessment & Plan (12/07/2022 10:28 AM EDT): Continue daily vitamin C supplementation to prevent deficiency. Assessment & Plan (05/01/2021 4:15 PM EDT): Take vitamin C 500 mg daily and eat lots of fresh fruits and veggies: 5-10 servings daily . Assessment & Plan (02/25/2021 3:39 PM EDT): Take vitamin C 500 mg daily and eat lots of fresh fruits and veggies: 5-10 servings daily . Assessment & Plan (01/15/2021 5:36 PM EDT): Take vitamin C 500 mg daily and eat lots of fresh fruits and veggies: 5-10 servings daily . Chronic atrial fibrillation 12/14/2020 Assessment & Plan (11/01/2023 9:58 PM EDT): -HR is controlled -Continue anticoagulation with eliquis -hold metoprolol and cardizem for hypotension Assessment & Plan (08/01/2023 4:46 PM EST): Rate controlled. Continue metoprolol with hold parameters as blood pressure low hold diltiazem. Continue Eliquis. Assessment & Plan (03/17/2023 8:13 PM EDT): Rate controlled atrial fibrillation. Continue diltiazem, metoprolol, and Eliquis. Assessment & Plan (12/26/2021 1:37 PM EDT): Rate controlled with metoprolol and diltiazem. Appropriately anticoagulated with Eliquis. Continue without change. Assessment & Plan (11/05/2021 12:06 AM EDT): For which she is on chronic anticoagulation with Eliquis We will continue as such. Assessment & Plan (02/12/2021 5:00 PM EDT): Patient was found to be in new atrial fibrillation during her last hospital stay. She has remained adequately anticoagulated on Eliquis 5 mg twice a day without bleeding complaint for a [id number] score 4 (heart failure, gender, age and diabetes). She is continued on Cardizem 240 mg daily and metoprolol which I increased to 50 mg twice a day at our last visit for better rate control. She still remains asymptomatic from her arrhythmia. However, she is ongoingly short of breath, but at this time, I am unsure if this is due to A. fib with RVR versus heart failure versus obesity/deconditioning. My hope is that her breathing will improve with more rate control and diuresis. Patient states that Eliquis is quite expensive for her, so I provided her with a months worth of samples from the office today. Assessment & Plan (01/28/2021 5:00 PM EDT): Patient was found to be in new A. fib during her last hospital stay. She has remained adequately anticoagulated on Eliquis 5 mg twice a day without bleeding complaint for a [id number] score 4 (heart failure, gender, age and diabetes). She is continued on Cardizem 240 mg daily and metoprolol 25 mg twice a day which I will increase to 50 mg twice a day as her resting heart rate is still above 100. She still remains asymptomatic from her arrhythmia without any specific palpitations or fatigue. However, she is ongoingly short of breath, but at this time, I am unsure if this is due to A. fib with RVR versus heart failure versus obesity/deconditioning. My hope is that her breathing will improve with more rate control and diuresis. Assessment & Plan (12/16/2020 3:44 PM EDT): December 14 4 AM patient started with new A. fib with RVR heart rate in the 120s. She was sleeping and asymptomatic. She was started on metoprolol. Appreciate cardiology consult. Echocardiogram November 29, 2020 shows ejection fraction of 68%. Today in afib, hr 70-90s -Diltiazem CD increased to 240 mg daily starting today. Metoprolol weaned to 25 mg twice a day -She should be anticoagulation and cardiology recommends apixaban 5 mg twice a day. Will start post temporal artery biopsy Chronic diastolic heart failure 12/01/2020 Assessment & Plan (11/01/2023 10:16 PM EDT): -No signs of fluid overload -Continue home dose of torsemide, 60 mg daily -She has a CardioMEMS device Assessment & Plan (08/02/2023 3:30 PM EST): Continue to hold diuretics. Has a CardioMEMS unit Assessment & Plan (03/17/2023 12:37 PM EDT): 73 yo F with multiple medical comorbidities presents with hypoxia, fatigue, dyspnea, nausea, headaches, muscle cramps, tinnitus and 10 lb weight gain. Presumably at least part of this is due to acute on chronic heart failure not responsive to recent brief increase in PO diuretic dose although electrolyte deficiency likely as well. Recommend ED eval at this time, needs urgent lab work and CXR and would likely benefit from IV diuresis, possible admission if not significantly improved after that and/or not able to oxygenate well on RA. Pt rogelio, lives 1 mile away, will go home and ask her to take her there. Assessment & Plan (03/03/2023 3:49 PM EDT): She reports a weight gain of about 12 lbs over a period of a few months, accompanied by worsening MANCIA. This is consistent with elevated CardioMEMs readings. At her last appointment with Dr Swartz in September, she was instructed to take 20 mg torsemide BID. This was misunderstood and she has been taking just 20 mg daily. I've advised her to increase torsemide to 20 mg BID for the next 3 days. Will follow CardioMEMs trends and repeat labs. I'll reach out to her when I have the labs. She will likely require 40 mg daily dosing going forward. She's aware of the importance of following a low sodium diet. Assessment & Plan (06/10/2022 3:48 PM EDT): Asymptomatic and with a normal exam today but I strongly encouraged her to continue daily weights. As best I understand it, her pillow, while marvelous, is not a substitute. Assessment & Plan (12/26/2021 1:36 PM EDT): CardioMEMS numbers reviewed- below her baseline at 46/32/23 today. Her renal function is increased with a BUN of 73, a creatinine of 2.2 and an eGFR of 24. Reviewed with Dr Swartz, advised patient to hold torsemide Thursday, Thursday and Thursday and be sure to transmit daily CardioMEMS readings. Repeat BMP on Thursday, will follow up at that point regarding instructions for diuretics going forward. Assessment & Plan (12/17/2021 4:31 PM EDT): I recommend daily weights as a more accurate way to monitor her fluid status than whether her rings fit. Assessment & Plan (10/22/2021 4:38 PM EST): We will try potassium capsules instead Assessment & Plan (06/19/2021 2:52 PM EDT): Currently well controlled and asymptomatic with normal exam. We again discussed appropriate fluid restrictions. Assessment & Plan (04/23/2021 11:32 AM EDT): We discussed that it is a little tricky to strike a balance between need to restrict fluids for congestive heart failure with symptomatic edema and the need to remain hydrated to prevent further kidney injury in her CKD, particularly given her recent acute kidney injury. I recommended that she limit her salt intake and should probably limit her fluids to approximately 1.5 L daily but I also encouraged her to discuss this with her outdoor recreation specialist who may feel that she needs to be more strict. In terms of increasing her stamina, if all she is able to do is to walk 10 feet then she should do that several times a day. She already has a team of specialists who are helping her with her pain. I recommend that she make a point of doing small movements around the house herself, such as getting up to get herself a glass of water rather than asking her for help. She should push herself a little every day and aim to gradually increase her exercise tolerance. Physical therapy will be helpful here as well. Assessment & Plan (02/12/2021 4:58 PM EDT): At our last visit, I increased patient's torsemide to 45 mg daily as the patient was experiencing ongoing edema, labored breathing and 1 to 2 pound weight fluctuations. Since this adjustment, the patient states that her edema has almost totally resolved in her lower extremities and her breathing is continuing to improve. We will continue 40 mg at this time and have the patient repeat another BMP in a few weeks to ensure her kidney function is not declining further. CardioMEMS device placed on 01/03/2021 at [facility] shows numbers that are slightly improved from her last visit. She is endorsing a low-sodium diet. I encouraged her to elevate as much as she can at home and continue checking daily weights. Cardiac rehab is unable to take the patient as her EF is not less than 35% on most recent echocardiogram. Assessment & Plan (01/28/2021 4:57 PM EDT): Patient currently taking torsemide 20 mg daily which I am going to increase to 40 mg daily as patient is experiencing bilateral lower extremity edema, labored breathing and 1 to 2 pound weight fluctuations. She had a CardioMEMS device placed on 01/03/2021 at [facility] which shows numbers today 54/42/31, actually trending slightly downward after review of data for the past approximately 3 weeks. She is endorsing a low-sodium diet. I also encouraged her to elevate as much as she can at home and continue checking daily weights. We are going to repeat a BMP in approximately 5 days to reassess her kidney function on the higher diuretic dose and see her thereafter in follow-up. Patient also wishes to proceed with cardiac rehab as she would like to safely remain active and held accountable while being monitored. I ordered cardiac rehab for her. Hypothyroidism 11/28/2020 Assessment & Plan (03/17/2023 8:12 PM EDT): Continue levothyroxine 150 mcg Assessment & Plan (12/20/2020 11:18 PM EDT): Continue thyroid replacement therapy as prescribed. Assessment & Plan (12/11/2020 4:15 PM EDT): Continued on home dose of levothyroxine daily. Assessment & Plan (11/29/2020 5:32 PM EDT): Patient has history of thyroid cancer status post thyroidectomy --Continue levothyroxine Chronic interstitial cystitis 12/17/2017 Overview (07/31/2023): Followed by Dr. Jara Resolved Problems Problem Noted Date Diagnosed Date Resolved Date On allopurinol therapy 03/17/202402/16 Assessment & Plan (09/19/2024 1:40 PM EST): Continue daily allopurinol and proper hydration: 6-8 glasses (8 ounces each) daily as long as no contraindication from outdoor recreation specialist due to chronic diastolic heart failure. Continue low purine diet. Monitor for abdominal pain, unusual skin rashes or discoloration, nausea or unusual weakness. Return for monitoring labs every 3 months. Assessment & Plan (03/17/2024 11:09 AM EDT): Continue daily allopurinol and proper hydration: 6-8 glasses (8 ounces each) daily as long as no contraindication from outdoor recreation specialist due to chronic diastolic heart failure. Continue low purine diet. Monitor for abdominal pain, unusual skin rashes or discoloration, nausea or unusual weakness. Return for monitoring labs every 3 months. On statin therapy 03/17/2024 02/16/2025 Assessment & Plan (09/19/2024 1:42 PM EST): Monitor for muscle tenderness, swelling and weakness Assessment & Plan (03/17/2024 11:09 AM EDT): Monitor for muscle tenderness, swelling and weakness Hypoxia 11/01/2023 11/18/2023 Overview (11/18/2023): Unexplained. Briefly hospitalized. Assessment & Plan (11/01/2023 10:14 PM EDT): -Unclear etiology -No signs of CHF, no JVD, no LE edema, CXR clear -PE unlikely as she is anticoagulated with eliquis -She has a chronic cough which she feels is unchanged, no fever/chills. Although she does have leukocytosis and pneumonia is a possibility. Repeat CXR in am, check procalcitonin -She also has pulm HTN, repeat TTE -Hold off on abx unless source of infection becomes clear -Follow up blood cx -Influenza/covid swabs neg -Pulm consult if no improvement RUQ pain 11/01/2023 11/18/2023 Assessment & Plan (11/01/2023 10:14 PM EDT): -Unclear etiology -Initially thought to have nephrolithiasis as she has had this in the past but CT abd/pelvis neg -CT abd/pelvis repeated with contrast and still no obvious explanation for pain, showed possible gastritis -Started on PPI -Pain improved with iv morphine -f/u GI consult -lipase mildly elevated, may be due to n/v, repeat in am, no signs of pancreatitis on CT -f/u RUQ abd US in am TIA (acute kidney injury) 08/01/2023 Hypercalcemia 07/31/2023 11/18/2023 Assessment & Plan (11/01/2023 9:57 PM EDT): -Ca 11.1 today -s/p 1L IVF in the ED -Hold calcitriol Assessment & Plan (08/02/2023 3:27 PM EST): History of HYPOcalcemia secondary to hypoparathyroidism from thyroid surgery. On calcitriol. Hypercalcemia could be worse related to dehydration, Has had problems in the past with elevated calcium at 1 point her calcitriol was stopped but subsequently she had low calcium level. As result she is reluctant to have it held at all. Calcium level better again today almost in normal range yet continue to hold calcitriol Pyuria 07/31/2023 11/18/2023 Assessment & Plan (08/02/2023 3:28 PM EST): Asymptomatic. Will forego any antibiotics at this time. Urine culture was reflexed- mixed mackenzie Acute exacerbation of CHF (c ongestive heart failure) 03/17/2023 05/07/2023 Assessment & Plan (03/18/2023 12:11 PM EDT): Patient presented with worsening shortness of breath, orthopnea, and weight gain of 10 pounds over the past few months concerning for acute diastolic heart failure. This was despite increasing torsemide from 40 mg to 60 mg x 3 days. Patient was found to be hypoxic in the high 80s at PCP office and elevated proBNP to 2266. Chest x- ray otherwise normal with no overt pulmonary edema or effusions. Troponins were negative at 17 and 17. EKG showed rate controlled atrial fibrillation without ST-T wave changes. Oddly, she reported that her UOP increased but symptoms did not improve. Patient appears afebrile and hemodynamically stable. Clinically improved with 1 dose of IV 80 mg Lasix. Appears comfortable at rest but oxygen desaturates to the high 80s on room air. -Patient will be observed on telemetry -Continue IV Lasix 80 mg twice daily -Continue home KCl 20 Meq supplementation daily -Daily weights and strict ins and outs -Cardiac diabetic diet -Echocardiogram -Cardiology consult and check cardiomems data Class 3 severe obesity due t o excess calories with serious comorbidity and body mass index (BMI) of 40.0 to 44.9 in adult 11/24/2022 Assessment & Plan (03/02/2023 3:46 PM EDT): Continue diligent portion control. Limit concentrated sugars, saturated fats and calories in the diet. Keep well-hydrated. If unable to achieve expected goal consider formal dietary/nutritional support. Assessment & Plan (12/07/2022 10:31 AM EDT): Carefully continue diligent portion control. Limit concentrated sugars, saturated fats and calories in the diet. Keep well-hydrated. If unable to achieve expected goal consider formal dietary/nutritional support. 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 Continue proper hydration and low purine diet. Call if problems or questions. Monitor for unusual abdominal pain, skin rashes, nausea or diarrhea. Assessment & Plan (04/01/2022 6:12 PM EDT): Since her labs returned stable with improving hyperuricemia I am offering her building up the dose of uric acid lowering allopurinol 100 mg to twice daily and repeat lab work in 3 months. Continue proper hydration and low purine diet. Call if problems or questions. Monitor for unusual abdominal pain, skin rashes, nausea or diarrhea. Muscle spasm 03/17/2022 12/03/2022 Assessment & Plan (04/01/2022 6:14 PM EDT): Proper hydration. Gentle massage and regular stretching. Well-balanced nutritionally diet, rich in electrolytes, vitamins, micro and ultraelements. Chronic cough 01/30/2022 07/31/2023 Assessment & Plan (04/23/2023 12:37 PM EDT): Longstanding cough which previously did not improve despite management of multiple medical issues which could result in cough. Previously, she had this extensively evaluated at [facility] with a work-up including bronchoscopy and autoimmune serologies which were reportedly unremarkable. Previously, a trial of ICS/LABA therapy was prescribed but her cough spontaneously improved prior to starting this. As such, we held on empiric ICS/LABA therapy. Since her productive cough has recurred, remains persistent, and does not appear to be related to allergies, we discussed starting ICS/LABA inhaler therapy -Trial of Advair 250-50 1 puff twice daily (ICS/LABA)--patient was advised to rinse mouth after each use -Evaluation/treatment of pulmonary causes of cough, as below -If a clear cause of cough is not identified, it is possible the cough could be related to small airways collapse (mosaic lung attenuation noted on prior CT) in the setting of MIGUEL/contribution of body habitus Assessment & Plan (11/18/2022 2:55 PM EDT): Longstanding cough which previously did not improve despite management of multiple medical issues which could result in cough. Previously, she had this extensively evaluated at [facility] with a work-up including bronchoscopy and autoimmune serologies which were reportedly unremarkable. At last visit, a trial of ICS/LABA therapy was prescribed but her cough spontaneously (and significantly) improved prior to starting this. As such, we discussed holding off on empiric ICS/LABA therapy unless her symptoms worsen in the future. -Continue Flonase, as below -Evaluation of pulmonary causes of cough, as below -If a clear cause of cough is not identified, it is possible the cough could be related to small airways collapse (mosaic lung attenuation noted on prior CT) in the setting of MIGUEL/contribution of body habitus Assessment & Plan (07/28/2022 12:57 PM EST): Longstanding cough which previously did not improve despite management of multiple medical issues which could result in cough. Previously, she had this extensively evaluated at [facility] with a work-up including bronchoscopy and autoimmune serologies which were reportedly unremarkable. We discussed empiric trial of ICS/LABA therapy to see whether this might be helpful. -Continue Flonase, as below -Evaluation of pulmonary causes of cough, as below -If a clear cause of cough is not identified, it is possible the cough could be related to small airways collapse (mosaic lung attenuation noted on prior CT) in the setting of MIGUEL/contribution of body habitus Assessment & Plan (03/07/2022 2:21 PM EDT): This remains mysterious and Merline expresses her desire to understand its etiology. I agree that this is an important question and I am glad she is working on this with her audiovisual lead technician. Assessment & Plan (02/27/2022 12:41 PM EDT): Longstanding cough which has not seemed to improve despite management of multiple medical issues which could result in cough. Previously, she had this extensively evaluated at [facility] with a work-up including bronchoscopy and autoimmune serologies which were reportedly unremarkable. -Trial of Flonase, as below -Evaluation of pulmonary causes of cough, as below -If a clear cause of cough is not identified, it is possible the cough could be related to small airways collapse (mosaic lung attenuation noted on prior CT) in the setting of not using NIV Assessment & Plan (01/30/2022 12:59 PM EDT): While it appears to be safe to take tessalon perles indefinitely (I have never been asked for a alf prescription, but the list of adverse effects on the drug monograph is short), I would really like to figure out WHY she has been coughing for 4 years, and so would she. She has been ruled out for many possibilities at this point: -duration is much too long for acute infection and imaging shows no evidence -I'm not aware of any of her medicines causing a cough -imaging shows no cancer -PFTs shows no asthma or COPD -she has no known occupational or home exposures, and cough persists during her world travels, so irritants are unlikely -cough persists despite treatment of MIGUEL -I'm not sure what a cardiac cough is but her CHF is well controlled and her cough has not improved -she has no other allergy symptoms, and allergy medicines have not helped, so seasonal allergies are unlikely Undertreated GERD or LPR is possible, especially given her BMI, but I've never seen this treated successfully with a cough medicine before. I would like her to see her audiovisual lead technician again as her response to cough medicine suggests a pulmonary etiology and she agrees with this plan; meantime we'll continue the Tessalon since they do give her temporary relief. Obstructive sleep apnea on CPAP 11/05/2021 03/17/2024 Assessment & Plan (11/01/2023 9:57 PM EDT): -resp therapy consult for BiPAP at night Assessment & Plan (08/01/2023 4:48 PM EST): Respiratory consult for BiPAP patient declined Assessment & Plan (11/18/2022 3:00 PM EDT): Followed by Dr. Hammond. Split-night sleep study in 02/2022 revealed a total AHI of 27/hr. Previously, Trilogy was prescribed as a result of a hospitalization for hypercarbic hypoxemic respiratory failure, as it was felt that she had OHS and would need nocturnal ventilatory support. Since this time, she has lost weight. Some of her respiratory failure was related to CHF and her volume status has improved. It was felt that she no longer needed nocturnal ventilatory support. As such, her Trilogy was discontinued and she was recommended to start AutoPAP to treat MIGUEL. She has not been able to tolerate CPAP and has not been using her machine as a result. Assessment & Plan (07/27/2022 3:22 PM EST): Followed by Dr. Hammond. Split-night sleep study in 02/2022 revealed a total AHI of 27/hr. Previously, Trilogy was prescribed as a result of a hospitalization for hypercarbic hypoxemic respiratory failure, as it was felt that she had OHS and would need nocturnal ventilatory support. Since this time, she has lost weight. Some of her respiratory failure was related to CHF and her volume status has improved. It was felt that she no longer needed nocturnal ventilatory support. As such, her Trilogy was discontinued and she was recommended to start AutoPAP to treat MIGUEL. Assessment & Plan (03/07/2022 2:22 PM EDT): If she has lost a significant amount of weight since her last sleep study then she may well have reduced or eliminated her sleep apnea but if she has not, then she definitely should continue use of CPAP. I explained that diligent use of CPAP has been shown to meaningfully reduce stroke risk. Assessment & Plan (12/17/2021 4:29 PM EDT): I encouraged Merline to resume using her CPAP for the time being and discuss alternative treatments, such as a nasal pillow or mandibular advancement device, with her sleep doctor and her dentist. I explained thattreating her sleep apnea successfully will reduce her risk of stroke. Assessment & Plan (11/05/2021 1:03 AM EDT): With hx of cor pulmonale and diastolic CHF related Will continue BIPAP at night while here. Hypocalcemia 11/04/2021 01/30/2022 Assessment & Plan (11/05/2021 12:55 AM EDT): Severe mildly symptomatic hypocalcemia. Etiology not certain [...] 06/2021 of her calcium axis by her Surgical Territory Manager after having stopped calcitriol about 1 year [...] Recheck Mg and Ca in 6 hours. Acute gout due to renal impa irment involving right ankle 10/30/2021 01/30/2022 Assessment & Plan (11/04/2021 10:41 PM EDT): New set of lab work requested today-standing orders in [facility]. Procedure: After an informed oral consent, under sterile conditions using Ethyl chloride spray for local anesthesia and 3 cc 1% Lidocaine as topical anesthetic I have aspirated few drops of bloody fluid from Right ankle uneventfully. Details of post-procedure care were explained to the patient in the office and given in writing. Provider: Emily Ireland MD Patient: Merline Mt : 1950 Date: 10/30/2021 Provided her labs return stable with marked hyperuricemia I am offering her small dose of uric acid lowering allopurinol 100 mg daily and repeat lab work in a month. Continue proper hydration and low purine diet. 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 I am unable to perform a [place]-Hallpike maneuver as described above but her history and physical are consistent with this diagnosis. The only other abnormalities on her exam are poor item recall and inability to perform tandem gait but she reports that both of these have always been poor performance areas for her. I explained the pathophysiology of BPPV. She most certainly cannot perform an Oswaldo maneuver at home for self treatment so I am referring her for urgent physical therapy for definitive treatment. In the meantime I will treat her symptoms with meclizine and explained that this can be sedating so she should try her first dose at home and use the lowest amount necessary to treat her symptoms. I am quite unconcerned about pancreatic cancer in this context. Acute gout of left wrist 09/05/202104/2022 Assessment & Plan (09/05/2021 10:29 PM EST): Since she improved by greater than 50% comparing to yesterday we decided not to pursue aspiration and intra-articular steroid injection at this point and instead I reviewed with her the metabolic nature of gout and need for careful monitoring and reducing hyperuricemia below 6 mg % to prevent crystal formation and therefore another gouty attack. I explained to Merline that dietary modifications alone at this level would not be sufficient and provided her with uric acid lowering medication allopurinol to read about possible side effects and write her questions to me before she starts. I have explained to the crucial role of proper hydration: 6-8 glasses (8 ounces each of fluids daily and no purine diet that I printed and gave to her to follow on daily basis. We spent several minutes discussing best approach to treat her suspected gouty arthritis that is brought up on her chronic and severe renal disease. I reviewed with Merline that diagnosis is not confirmed since I do not have a crystal proven diagnosis but given the high uric acid in the serum it is more likely than or possibly coexisting with pseudogout that is caused by calcium pyrophosphate crystals. Gout is caused by uric acid crystals that can be visualized under polarizing microscope or by DECT (dual energy computed tomography) versus ultrasound however we do not have those modalities at our disposal. She prefers to try nonpharmacologic measures first until next visit with me in early October 2021. She understands that if after reading the pamphlet on allopurinol she agrees to start it carefully she can call or write message through the portal to send prescription to her pharmacy. We discussed the strategy for possible new gouty attack. She understands that if gout attacks reappear we will have to start allopurinol now just nonpharmacologic strategies. Gastroesophageal reflux disease 04/23/2021 02/16/2025 Assessment & Plan (11/24/2022 2:13 PM EDT): Avoid late, large, spicy meals. Keep headboard elevated at 45 angle for nighttime. Assessment & Plan (10/22/2021 4:39 PM EST): I did in fact refill her omeprazole but since her pharmacy was unable to give it to her my guess is the prescription did not go through. I think that is probably why she has some mild tenderness over her stomach. Assessment & Plan (06/19/2021 2:50 PM EDT): Requests refill. Doing really well on omeprazole. Assessment & Plan (05/01/2021 4:16 PM EDT): Avoid late, large, spicy meals. Keep headboard elevated at 45 angle for nighttime. Shortness of breath 02/21/2021 07/31/20 Assessment & Plan (04/22/2023 12:55 PM EDT): Chronic exertional shortness of breath which profoundly improved with optimization of her volume status. This is likely multifactorial with contributing factors including morbid obesity, obesity hypoventilation/MIGUEL, diastolic congestive heart failure, secondary pulmonary hypertension, atrial fibrillation, air trapping of unclear etiology, deconditioning. Her congestive heart failure appears to be the most significant contributing factor. She is followed by cardiology and CardioMEMS device was placed in 12/2020. PFTs from 03/2021 with moderately severe restriction, markedly impaired ERV, and a moderately impaired diffusion capacity (corrects to normal when adjusted for alveolar volume) could be secondary to patient body habitus + presence of pulmonary edema at the time. Her shortness of breath improved with optimization of volume status as well as treatment of her chronic low back pain. -Continued management of chronic diastolic heart failure per cardiology -Encourage exercise as tolerated and weight loss Assessment & Plan (11/16/2022 1:15 PM EDT): Chronic exertional shortness of breath which profoundly improved with optimization of her volume status. This is likely multifactorial with contributing factors including morbid obesity, obesity hypoventilation/MIGUEL, diastolic congestive heart failure, secondary pulmonary hypertension, atrial fibrillation, air trapping of unclear etiology, deconditioning. Her congestive heart failure appears to be the most significant contributing factor. She is followed by cardiology and CardioMEMS device was placed in 12/2020. PFTs from 03/2021 with moderately severe restriction, markedly impaired ERV, and a moderately impaired diffusion capacity (corrects to normal when adjusted for alveolar volume) could be secondary to patient body habitus + presence of pulmonary edema at the time. Her shortness of breath improved with optimization of volume status as well as treatment of her chronic low back pain. -Continued management of chronic diastolic heart failure per cardiology -Encourage exercise as tolerated and weight loss Assessment & Plan (07/27/2022 3:10 PM EST): Chronic exertional shortness of breath which profoundly improved with optimization of her volume status. This is likely multifactorial with contributing factors including morbid obesity, obesity hypoventilation/MIGUEL, diastolic congestive heart failure, secondary pulmonary hypertension, atrial fibrillation, deconditioning. Her congestive heart failure appears to be the most significant contributing factor. She is followed by cardiology and CardioMEMS device was placed in 12/2020. PFTs from 03/2021 with moderately severe restriction, markedly impaired ERV, and a moderately impaired diffusion capacity (corrects to normal when adjusted for alveolar volume) could be secondary to patient body habitus + presence of pulmonary edema at the time. Her shortness of breath improved with optimization of volume status as well as treatment of her chronic low back pain. -Continued management of chronic diastolic heart failure per cardiology -Encourage exercise as tolerated and weight loss Assessment & Plan (02/26/2022 12:34 PM EDT): Chronic exertional shortness of breath which profoundly improved with optimization of her volume status. This is likely multifactorial with contributing factors including morbid obesity, obesity hypoventilation/MIGUEL, diastolic congestive heart failure, secondary pulmonary hypertension, atrial fibrillation, deconditioning. Her congestive heart failure appears to be the most significant contributing factor. She is followed by cardiology and CardioMEMS device was placed in 12/2020. PFTs from 03/2021 with moderately severe restriction, markedly impaired ERV, and a moderately impaired diffusion capacity (corrects to normal when adjusted for alveolar volume) could be secondary to patient body habitus + presence of pulmonary edema at the time. Her shortness of breath improved with optimization of volume status as well as treatment of her chronic low back pain. -Continued management of chronic diastolic heart failure per cardiology -Encourage exercise as tolerated and weight loss Assessment & Plan (09/02/2021 3:45 PM EST): Chronic exertional shortness of breath which profoundly improved with optimization of her volume status. This is likely multifactorial with contributing factors including morbid obesity, obesity hypoventilation/MIGUEL, diastolic congestive heart failure, secondary pulmonary hypertension, atrial fibrillation, deconditioning. Her congestive heart failure appears to be the most significant contributing factor. She is followed by cardiology and CardioMEMS device was placed in 12/2020. PFTs from 04/18/2021 with moderately severe restriction, markedly impaired ERV, and a moderately impaired diffusion capacity (corrects to normal when adjusted for alveolar volume) could be secondary to patient body habitus + presence of pulmonary edema at the time. Her shortness of breath improved with optimization of volume status as well as treatment of her chronic low back pain. -Continued management of chronic diastolic heart failure per cardiology -Encourage exercise as tolerated and weight loss Assessment & Plan (05/07/2021 2:13 PM EDT): Chronic exertional shortness of breath with minimal activity and fatigue which has been worsening in the past couple of weeks. This is likely multifactorial with contributing factors including morbid obesity, obesity hypoventilation/MIGUEL, diastolic congestive heart failure, secondary pulmonary hypertension, atrial fibrillation, deconditioning. At present, her congestive heart failure appears to be the most active issue despite it being significantly optimized over the preceding months. She is followed by cardiology and CardioMEMS device was placed in 12/2020 with persistently elevated PA pressures. PFTs from 04/18/2021 with moderately severe restriction, markedly impaired ERV, and a moderately impaired diffusion capacity (corrects to normal when adjusted for alveolar volume) could be secondary to patient body habitus + pulmonary edema. Her shortness of breath has improved with optimization of volume status as well as treatment of her chronic low back pain. -Interval CT chest, as below -Continued management of chronic diastolic heart failure per cardiology -Encourage exercise as tolerated and weight loss Assessment & Plan (02/21/2021 2:51 PM EDT): Chronic exertional shortness of breath with minimal activity and fatigue which has been worsening in the past couple of weeks. This is likely multifactorial with contributing factors including morbid obesity, obesity hypoventilation/MIGUEL, diastolic congestive heart failure, cor pulmonale/pulmonary hypertension, atrial fibrillation, deconditioning. At present, her congestive heart failure appears to be the most active issue despite it being significantly optimized over the preceding months. Notably, patient was recently weaned off of steroids so a degree of adrenal insufficiency is possible. Exam today notable for mild bilateral crackles and trace lower extremity edema which could be compatible with an element of mild volume overload. She is followed by cardiology and CardioMEMS device was placed in 12/2020. We will obtain pulmonary function testing to evaluate for underlying pulmonary disease and the possibility of restrictive physiology resulting from body habitus. -Obtain CBC with differential, CMP, TSH, AM cortisol, CRP, ESR, NT-proBNP -Obtain PFTs + 6MWT -Patient's cardiology PA, Ne Villasenor, cc'd regarding management of possible volume overload -Encourage exercise as tolerated Class 3 severe obesity due t o excess calories with serious comorbidity and body mass index (BMI) of 40.0 to 44.9 in adult 02/20/2021 3 Assessment & Plan (11/24/2022 2:12 PM EDT): Portion control. Limit concentrated sugars, saturated fats and calories in the diet. Keep well-hydrated. If unable to achieve expected goal consider formal dietary/nutritional support. Assessment & Plan (06/30/2022 3:18 PM EST): Encouraged to continue diligent portion control. Limit concentrated sugars, saturated fats and calories in the diet. Keep well-hydrated. If unable to achieve expected goal consider formal dietary/nutritional support. Assessment & Plan (04/01/2022 6:08 PM EDT): Encouraged to continue diligent portion control. Limit concentrated sugars, saturated fats and calories in the diet. Keep well-hydrated. If unable to achieve expected goal consider formal dietary/nutritional support. Assessment & Plan (12/17/2021 4:34 PM EDT): I strongly encouraged Merline to consider returning to swimming, which (because of her severe chronic back pain) is probably the only way that she would be able to tolerate regular exercise, even though she feels too fat to appear in a swimsuit. Her inability to walk even a block severely limits her activities and of course her severe decrease in physical conditioning will add to her comorbidities and increase her mortality risk. Many of her health conditions would likely improve if she were in better physical condition and lost some weight. She is aware of these risks and unhappy about it but finds it difficult to move beyond her current sedentary lifestyle. Assessment & Plan (11/04/2021 10:36 PM EDT): Continue portion control. Limit concentrated sugars, saturated fats and calories in the diet. Keep well-hydrated. If unable to achieve expected goal consider formal dietary/nutritional support. Assessment & Plan (09/05/2021 10:12 PM EST): Portion control. Limit concentrated sugars, saturated fats and calories in the diet. Keep well-hydrated. If unable to achieve expected goal consider formal dietary/nutritional support. Assessment & Plan (05/01/2021 4:16 PM EDT): Portion control. Limit concentrated sugars, saturated fats and calories in the diet. Keep well-hydrated. If unable to achieve expected goal consider formal dietary/nutritional support. Assessment & Plan (02/25/2021 3:39 PM EDT): Portion control. Limit concentrated sugars, saturated fats and calories in the diet. Keep well-hydrated. If unable to achieve expected goal consider formal dietary/nutritional support. On statin therapy 01/10/2021 04/23/2021 Assessment & Plan (02/25/2021 3:42 PM EDT): Monitor for muscle tenderness, swelling and weakness Assessment & Plan (01/10/2021 11:50 AM EDT): Monitor for muscle tenderness, swelling and weakness Postmenopausal 01/10/2021 04/23/2021 Assessment & Plan (01/15/2021 5:38 PM EDT): Due to high dose of prednisone therapy and postmenopausal stage I request bone density to make sure that she does not require bone preserving therapy in addition to proper calcium and vitamin D supplementation, daily weightbearing exercises and fall and fracture prevention strategies. Urinary frequency 12/20/2020 04/23/2021 Assessment & Plan (12/20/2020 11:19 PM EDT): Urinalysis requested to make sure there are no signs of proteinuria or hematuria versus UTI Anticoagulated 12/20/2020 05/30/2021 Assessment & Plan (05/01/2021 4:17 PM EDT): Avoid falls, injuries and cuts. Monitor for excessive bruising and bleeding. Assessment & Plan (02/25/2021 3:41 PM EDT): Continue Eliquis as prescribed. Avoid falls, injuries and cuts. Monitor for excessive bruising and bleeding. Assessment & Plan (01/10/2021 11:51 AM EDT): Continue Eliquis as prescribed. Avoid falls, injuries and cuts. Monitor for excessive bruising and bleeding. Assessment & Plan (01/04/2021 2:21 PM EDT): Continue Eliquis as prescribed. Avoid falls, injuries and cuts. Monitor for excessive bruising and bleeding. Assessment & Plan (12/20/2020 11:20 PM EDT): Continue Eliquis as prescribed. Avoid falls, injuries and cuts. Monitor for excessive bruising and bleeding. 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 Daily calcium and vitamin D supplementation. Regular weightbearing exercises. Fall prevention strategies. Monitor for multiple side effects including but not limited to hips, knees and jaw osteonecrosis, mood swings, increased intraocular and systemic pressure, diabetes, osteoporosis, fluid retention, increased appetite, risk of infection, bruising, hair thinning etc. Assessment & Plan (01/04/2021 2:21 PM EDT): Daily calcium supplementation via diet and vitamin D as instructed. Regular weightbearing exercises. Fall prevention strategies. Monitor for multiple side effects including but not limited to hips, knees, jaw osteonecrosis, mood swings, increased intraocular and systemic pressure, diabetes, osteoporosis, fluid retention, increased appetite, risk of infection, bruising, hair thinning etc. Assessment & Plan (12/20/2020 11:21 PM EDT): Daily calcium supplementation via diet and vitamin D as instructed. Regular weightbearing exercises. Fall prevention strategies. Monitor for multiple side effects including but not limited to hips, knees, jaw osteonecrosis, mood swings, increased intraocular and systemic pressure, diabetes, osteoporosis, fluid retention, increased appetite, risk of infection, bruising, hair thinning etc. Acute kidney injury superimp osed on chronic kidney disease 12/11/2020 11/18/2023 Assessment & Plan (08/02/2023 3:31 PM EST): Patient sent to the ED by outdoor recreation specialist due to elevated creatinine. Placed on IV fluids. Renal ultrasound done which was unremarkable PVRs are negligible. Creatinine a little bit higher today nephrology consulted . He thinks patient has ischemic ATN complicated by vasoconstriction from hypercalcemia. Did not recommend continuing IV fluid Assessment & Plan (11/05/2021 1:04 AM EDT): Significant bump in renal function, with concominant hyperphosphatemia as well as the hypocalcemia and markedly elevated uric acid. Etiology ddx Volume depletion vs. Crystal disease vs. Poor profusion from cardiac malfunction (doesn't seem likely) Will recheck after second litre Awaiting urine results as well. For now Hold diurectic as well as K supplement. Monitor O2, renal consult in AM Assessment & Plan (12/16/2020 3:42 PM EDT): Appreciate renal consult and recommendations. Likely ATN. No proteinuria. No indication for renal biopsy. Creatinine is improved from 4.1 to 1.4. Baseline is around 1.2. She is feeling good today -Restart low-dose diuretic torsemide 20 mg a day per renal Abnormal chest CT 11/30/2020 07/31/2023 Assessment & Plan (04/23/2023 12:44 PM EDT): CT chest from 11/2020 notable for bilateral diffuse patchy groundglass versus mosaic attenuation, the latter of which would be consistent with air-trapping. These findings in the setting of elevated inflammatory markers and a positive procalcitonin at the time could have been consistent with an infectious etiology, an inflammatory chronic bronchiolitis, volume overload, or a combination of issues. She was treated with a course of antibiotics in 11/2020 as well as diuresis. Repeat CT chest from later in 11/2020 showed stable diffuse groundglass opacities and a right heart catheterization on 11/2020 was consistent with decompensated diastolic congestive heart failure with elevated right heart pressures. Her diuretic regimen was increased by cardiology. HRCT chest from 06/2021 with significant interval improvement of diffuse bilateral patchy groundglass opacities, consistent with improvement of pulmonary edema. There was some residual mosaic attenuation (more prominent with expiration) which could be consistent with air trapping. Previously, she had an extensive evaluation at [facility] including bronchoscopy which was reportedly unrevealing. She had an extensive serologic workup of interstitial lung disease performed in 11/2020 which was notable for a positive RF (and negative CCP), weakly positive MARGARETH, and positive p-ANCA with negative MPO and PR3. Her MARGARETH and ANCA screens subsequently were negative when repeated in 12/2020 and these likely represent false positives. Negative hypersensitivity pneumonitis and myositis panels. It is possible that her cough is related to an ongoing inflammatory issue resulting in tree-in-bud nodularity (seen on a prior CT scan at [facility]) and mosaic attenuation of the lungs on CT (could represent bronchiolitis verus non-specific air trapping, perhaps related to MIGUEL/contribution of body habitus). In light of ongoing cough, interval HRCT chest was performed in 05/2022 with similar mild diffuse groundglass opacities/mosaic attenuation consistent with air trapping, and similar mild bronchiectasis. Plan: -As above, trial of empiric initiation of ICS/LABA (to see whether this could help with cough in the setting of air trapping seen on CT chest) -Obtain interval PFTs -If cough recurs and empiric ICS/LABA treatment is not helpful, and a clear cause of her imaging abnormalities/cough is not identified, would discuss pursuing bronchoscopy here at [facility] -Additionally, could consider a 3-6 month trial of low-dose azithromycin in the future given possibility of chronic bronchiolitis -Encourage weight loss, exercise Assessment & Plan (11/18/2022 2:58 PM EDT): CT chest from 11/2020 notable for bilateral diffuse patchy groundglass versus mosaic attenuation, the latter of which would be consistent with air-trapping. These findings in the setting of elevated inflammatory markers and a positive procalcitonin at the time could have been consistent with an infectious etiology, an inflammatory chronic bronchiolitis, volume overload, or a combination of issues. She was treated with a course of antibiotics in 11/2020 as well as diuresis. Repeat CT chest from later in 11/2020 showed stable diffuse groundglass opacities and a right heart catheterization on 11/2020 was consistent with decompensated diastolic congestive heart failure with elevated right heart pressures. Her diuretic regimen was increased by cardiology. HRCT chest from 06/2021 with significant interval improvement of diffuse bilateral patchy groundglass opacities, consistent with improvement of pulmonary edema. There was some residual mosaic attenuation (more prominent with expiration) which could be consistent with air trapping. Previously, she had an extensive evaluation at [facility] including bronchoscopy which was reportedly unrevealing. She had an extensive serologic workup of interstitial lung disease performed in 11/2020 which was notable for a positive RF (and negative CCP), weakly positive MARGARETH, and positive p-ANCA with negative MPO and PR3. Her MARGARETH and ANCA screens subsequently were negative when repeated in 12/2020 and these likely represent false positives. It is possible that her cough is related to an ongoing inflammatory issue resulting in tree-in-bud nodularity (seen on a prior CT scan at [facility]) and mosaic attenuation of the lungs on CT (could represent bronchiolitis verus non-specific air trapping, perhaps related to MIGUEL/contribution of body habitus). In light of ongoing cough, interval HRCT chest was performed in 05/2022 with similar mild diffuse groundglass opacities/mosaic attenuation consistent with air trapping, similar mild bronchiectasis. Additional serologies were recommended but this blood work has not yet been done. Plan: -As above, defer empiric initiation of ICS/LABA (to see whether this could help with cough in the setting of air trapping seen on CT chest) given spontaneous improvement of cough -Check hypersensitivity pneumonitis screen, myositis panel, CRP, ESR (ordered in 02/2022, but not yet done--patient will get these done soon) -If cough recurs and empiric ICS/LABA treatment is not helpful, and a clear cause of her imaging abnormalities/cough is not identified, would discuss pursuing bronchoscopy here at [facility] -Encourage weight loss, exercise Assessment & Plan (07/28/2022 1:00 PM EST): CT chest from 11/2020 notable for bilateral diffuse patchy groundglass versus mosaic attenuation, the latter of which would be consistent with air-trapping. These findings in the setting of elevated inflammatory markers and a positive procalcitonin at the time could have been consistent with an infectious etiology, an inflammatory chronic bronchiolitis, volume overload, or a combination of issues. She was treated with a course of antibiotics in 11/2020 as well as diuresis. Repeat CT chest from later in 11/2020 showed stable diffuse groundglass opacities and a right heart catheterization on 11/2020 was consistent with decompensated diastolic congestive heart failure with elevated right heart pressures. Her diuretic regimen was increased by cardiology. HRCT chest from 06/2021 with significant interval improvement of diffuse bilateral patchy groundglass opacities, consistent with improvement of pulmonary edema. There was some residual mosaic attenuation (more prominent with expiration) which could be consistent with air trapping. Previously, she had an extensive evaluation at [facility] including bronchoscopy which was reportedly unrevealing. She had an extensive serologic workup of interstitial lung disease performed in 11/2020 which was notable for a positive RF (and negative CCP), weakly positive MARGARETH, and positive p-ANCA with negative MPO and PR3. Her MARGARETH and ANCA screens subsequently were negative when repeated in 12/2020 and these likely represent false positives. It is possible that her cough is related to an ongoing inflammatory issue resulting in tree-in-bud nodularity (seen on a prior CT scan at [facility]) and mosaic attenuation of the lungs on CT (could represent bronchiolitis verus non-specific air trapping, perhaps related to MIGUEL/contribution of body habitus). In light of ongoing cough, interval HRCT chest was performed in 05/2022 with similar mild diffuse groundglass opacities/mosaic attenuation consistent with air trapping, similar mild bronchiectasis. Additional serologies were recommended but this blood work has not yet been done. Plan: -Trial of ICS/LABA (Dulera 100-5 2 puffs twice daily; patient was advised to rinse mouth after each use) to see whether this could help with cough and exam stable air trapping seen on CT chest -Check hypersensitivity pneumonitis screen, myositis panel, CRP, ESR (ordered at last visit in 02/2022, but not yet done) -If empiric ICS/LABA treatment is not helpful and a clear cause of her imaging abnormalities/cough is not identified, would discuss pursuing bronchoscopy here at [facility] -Encourage weight loss, exercise Assessment & Plan (02/27/2022 12:43 PM EDT): CT chest from 11/2020 notable for bilateral diffuse patchy groundglass versus mosaic attenuation, the latter of which would be consistent with air-trapping. These findings in the setting of elevated inflammatory markers and a positive procalcitonin at the time could have been consistent with an infectious etiology, an inflammatory chronic bronchiolitis, volume overload, or a combination of issues. She was treated with a course of antibiotics in 11/2020 as well as diuresis. Repeat CT chest from later in 11/2020 showed stable diffuse groundglass opacities and a right heart catheterization on 11/2020 was consistent with decompensated diastolic congestive heart failure with elevated right heart pressures. Her diuretic regimen was increased by cardiology. HRCT chest from 06/2021 with significant interval improvement of diffuse bilateral patchy groundglass opacities, consistent with improvement of pulmonary edema. There was some residual mosaic attenuation (more prominent with expiration) which could be consistent with air trapping. Previously, she had an extensive evaluation at [facility] including bronchoscopy which was reportedly unrevealing. She had an extensive serologic workup of interstitial lung disease performed in 11/2020 which was notable for a positive RF (and negative CCP), weakly positive MARGARETH, and positive p-ANCA with negative MPO and PR3. Her MARGARETH and ANCA screens subsequently were negative when repeated in 12/2020 and these likely represent false positives. In light of ongoing cough, we will obtain interval CT chest and check additional serologies. It is possible that her cough is related to an ongoing inflammatory issue resulting in tree-in-bud nodularity (seen on a prior CT scan at [facility]) and mosaic attenuation of the lungs on CT (could represent bronchiolitis). Plan: -Obtain interval CT chest -Check hypersensitivity pneumonitis screen, myositis panel, CRP, ESR -Depending on findings, repeat bronchoscopy might be indicated Assessment & Plan (09/02/2021 3:48 PM EST): CT chest from 11/2020 notable for bilateral diffuse patchy groundglass versus mosaic attenuation, the latter of which would be consistent with air-trapping. These findings in the setting of elevated inflammatory markers and a positive procalcitonin at the time could have been consistent with an infectious etiology, an inflammatory chronic bronchiolitis, volume overload, or a combination of all. She was treated with a course of antibiotics in 11/2020 as well as diuresis. Repeat CT chest from 12/03/2020 showed stable diffuse groundglass opacities and a right heart catheterization on 11/2020 was consistent with decompensated diastolic congestive heart failure with elevated right heart pressures. Her diuretic regimen was increased by cardiology. HRCT chest from 06/2021 with significant interval improvement of diffuse bilateral patchy groundglass opacities, consistent with improvement of pulmonary edema. There is some residual mosaic attenuation (more prominent with expiration) which could be consistent with air trapping. In light of her marked clinical and radiographic improvement resulting from optimizing her volume status, I do not feel this needs to be worked up further at the present time. Assessment & Plan (05/07/2021 2:12 PM EDT): CT chest from 11/28/2020 notable for bilateral diffuse patchy groundglass versus mosaic attenuation, the latter of which would be consistent with air-trapping. Only inspiratory views performed, so it is challenging to differentiate between the two without high resolution CT chest with inspiratory and expiratory views. As such, these findings with elevated inflammatory markers and a positive procalcitonin at the time could be consistent with an infectious etiology, an inflammatory chronic bronchiolitis, or volume overload. She was treated with a course of antibiotics in 11/2020 as well as diuresis. Repeat CT chest from 12/03/2020 showed stable diffuse groundglass opacities and a right heart catheterization on 12/04/2020 was consistent with decompensated diastolic congestive heart failure with elevated right heart pressures. We will obtain HRCT now that she is felt to be euvolemic to determine if any underlying lung disease is present. -High-resolution CT chest Assessment & Plan (02/21/2021 2:43 PM EDT): CT chest from 11/28 notable for bilateral diffuse patchy groundglass versus mosaic attenuation, the latter of which would be consistent with air-trapping. Only inspiratory views performed, so it is challenging to differentiate between the two without high resolution CT chest with inspiratory and expiratory views. As such, these findings with elevated inflammatory markers and a positive procalcitonin could be consistent with an infectious etiology, an inflammatory chronic bronchiolitis, or volume overload. She was treated with a course of antibiotics in 11/2020 as well as diuresis. Repeat CT chest from 12/03/2020 showed stable diffuse groundglass opacities and a right heart catheterization on 12/04/2020 was consistent with decompensated diastolic congestive heart failure with cor pulmonale. We will hold off on interval CT chest until it is felt that patient is euvolemic. Assessment & Plan (11/30/2020 6:14 PM EDT): CT chest from 11/28 notable for bilateral diffuse patchy groundglass versus mosaic attenuation, the latter of which would be consistent with air-trapping. Only inspiratory views performed, so it is challenging to differentiate between the two without high resolution CT chest with inspiratory and expiratory views. As such, these findings with elevated inflammatory markers and a positive procalcitonin could be consistent with an infectious pneumonia (bacterial versus viral). Alternatively, an inflammatory chronic bronchiolitis is possible. -Obtain medical records from [facility] pulmonology (including notes, bronchoscopy and pathology reports, PFTs, imaging) -Defer additional imaging and consideration of bronchoscopy until records/imaging from [facility] have been obtained -Continue empiric treatment of community-acquired pneumonia with azithromycin/ceftriaxone -Obtain sputum culture if patient is able to expectorate Community acquired pneumonia 11/30/2020 12/08/2020 Class 3 severe obesity due t o excess calories with serious comorbidity and body mass index (BMI) of 40.0 to 44.9 in adult 11/30/2020 Assessment & Plan (01/04/2021 2:21 PM EDT): Portion control. Limit concentrated sugars, saturated fats and calories in the diet. Keep well-hydrated. If unable to achieve expected goal consider formal dietary/nutritional support. Assessment & Plan (12/20/2020 11:18 PM EDT): Portion control. Limit concentrated sugars, saturated fats and calories in the diet. Keep well-hydrated. If unable to achieve expected goal consider formal dietary/nutritional support. Acute on chronic respiratory failure with hypoxia and hypercapnia 11/28/2020 04/23/2021 Assessment & Plan (11/30/2020 7:21 PM EDT): Suspect underlying obesity hypoventilation/MIGUEL. Her CT chest [...] O2 for goal SpO2 >88% and <94% Assessment & Plan (11/30/2020 3:27 PM EDT): Presents to the ED with new shortness of breath and oxygen requirement in the setting of chronic cough and MIGUEL, currently untreated. She has had previous pulmonary evaluation at [facility] including bronchoscopy last summer that was nondiagnostic. CTPA shows diffuse mosaic attenuation of both lungs suggesting air trapping, question of bronchiolitis or pulmonary hypertension. Dilated pulmonary artery also noted, though echo shows normal pulmonary artery systolic pressure. She has had low-grade fever and leukocytosis raising the possibility of an infectious cause of her symptoms, though her hypoxia is likely multifactorial Records from [facility] show that she had a bronchoscopy on 03/30/2020 for cough and bronchorrhea and was being followed by Dr. Yanez From history, she has had ongoing hypoxia. ABG shows acute respiratory acidosis with marked hypercapnia, likely the cause of her lethargy and change in mental status --Needs transfer to the ICU for urgent BiPAP. Call out to pulmonary --Continue ceftriaxone and azithromycin Headache 12/17/2021 Assessment & Plan (11/05/2021 1:13 AM EDT): Months of worsening persistent headaches, now with new hypocalcemia as well. Will get CT Brain Assessment & Plan (12/16/2020 3:43 PM EDT): Hospitalist Dr. Thomas spoke with Dr. Lazaro Julio about the presentation and felt that temporal arteritis was a very high possibility for most everything that is abnormal except perhaps the hypercalcemia. She agreed to have her practice available for consultation, formally at the bedside, particularly if the temporal artery biopsy tomorrow was negative. She agreed with continuing the prednisone. Surgeon Dr. Hearn had her on the schedule for temporal biopsy the morning of 12/14 but she went into rapid A. fib hours prior so the procedure has been postponed. -Continue prednisone 60 mg a day -Dr. Hearn plans on temporal artery biopsy tomorrow morning. So she will be n.p.o. after midnight Leukocytosis 12/17/2020 Assessment & Plan (12/16/2020 3:35 PM EDT): Patient shows no sign of infection and I think this very high WBC is probably part of her overall inflammatory presentation.. This is gradually improving. On admission 42k, now down to 12k. Encounters Date Type Department Care Team Description 04/30/2025 Refill [facility] [address] [place] [address] [place] [address] Kit Anthony DO Medication Refill 04/26/2025 Telephone [facility] [address] [place] [address] [place] [address] Matt Murillo MD Requesting call back 04/24/2025 Refill [facility] [address] [place] [address] [place] [address] Jef Hammond MD Medication Refill 04/24/2025 Refill [facility] [address] [place] [address] Emily Ireland MD Medication Refill 04/19/2025 Refill [facility] [address]rd Floor, [address] [place] [address] Goran Swartz MD Medication Refill 03/27/2025 1:30 PM EDT Office Visit [facility] [address] [place] [address] Gabby Bell MD Hodges, Zachary K, PT Traumatic closed nondisplaced fracture of anatomical neck of humerus, left, with routine healing, subsequent encounter (Primary Dx) 03/24/2025 Telephone [facility] [address] [place] [address] Ivon Panda [place], [place] Forms & Paperwork (Sammie PRICE) 03/21/2025 3:15 PM EDT Office Visit [facility] [address] [place] [address] Gabby Bell MD Swannie, Ward, HAND STITCHER Traumatic closed nondisplaced fracture of anatomical neck of humerus, left, with routine healing, subsequent encounter (Primary Dx) 03/17/2025 1:00 PM EDT Office Visit [facility] [address] [place] [address] Gabby Bell MD Swannie, Ward, HAND STITCHER Traumatic closed nondisplaced fracture of anatomical neck of humerus, left, with routine healing, subsequent encounter (Primary Dx) 03/15/2025 3:40 PM EDT Office Visit [facility] [address] [place] [address] Kit Anthony, Type 2 diabetes mellitus with complication, with long-term current use of insulin (Primary Dx); Hypoparathyroidism after procedure; Fracture; Type 2 diabetes mellitus with diabetic polyneuropathy, unspecified whether alf insulin use 03/15/2025 11:30 AM EDT Office Visit [facility] [address] [place] [address] Gabby Bell MD Swannie, Azar, HAND STITCHER Traumatic closed nondisplaced fracture of anatomical neck of humerus, left, with routine healing, subsequent encounter (Primary Dx) 03/15/2025 Transcribe Orders [address] [place] [address] Shaji Zeng MD Encounter for rehabilitation (Primary Dx) 03/14/2025 Refill [facility] [address] [place] [address] Izabel Murray MD Medication Refill 03/08/2025 Refill [facility] [address] [place] [address] Kit Anthony DO Medication Refill 03/03/2025 1:30 PM EDT Office Visit [facility] [address] [place] [address] Gabby Bell MD Hodges, Zachary K, PT Traumatic closed nondisplaced fracture of anatomical neck of humerus, left, with routine healing, subsequent encounter (Primary Dx) 03/03/2025 Plan of Care Documentation [address] [place] [address] 03/01/2025 Orders Only [facility] Virtual Department [address] [place] [address] Kodi Hewitt MD 02/27/2025 11:30 AM EDT Home Care Visit [facility] [address] [place] [address] Silvia Martinez, PT PT OASIS DISCHARGE VISIT 02/27/2025 Telephone [facility] [address] [place] [address] Gabby Bell MD [facility] PT 02/23/2025 Telephone [facility] [address] [place] [address] Gabby Bell MD Results 02/22/2025 Telephone [facility] [address] [place] [address] Gabby Bell MD [facility] Update 02/20/2025 12:30 PM EDT Home Care Visit [facility] [address] [place] [address] Silvia Martinez, PT PT HOME VISIT 02/20/2025 9:00 AM EDT Home Care Visit [facility] [address] [place] [address] Fiorella Matute, NANDO SN DISCIPLINE DISCHARGE VISIT 02/17/2025 9:00 AM EDT Home Care Visit [facility] [address] [place] [phone] Maile Rashid, OT MISSED VISIT 02/16/2025 3:00 PM EDT - 02/16/2025 11:59 PM EDT Hospital Encounter [facility] [address] [place] [address] Gabby Bell MD Discharge Disposition: Home or Self Care 02/16/2025 2:00 PM EDT Office Visit [facility] [address] Floor, [address] [place] [address] Gorna Swartz MD Longstanding persistent atrial fibrillation (Primary Dx); Chronic diastolic heart failure 02/14/2025 11:20 AM EDT Office Visit [facility] [address] [place] [address] Gabby Bell MD Other closed nondisplaced fracture of proximal end of left humerus with routine healing, subsequent encounter (Primary Dx); Chronic renal impairment, stage 4 (severe); Subjective hearing loss; Spinal stenosis of lumbar region with neurogenic claudication 02/14/2025 5:00 AM EDT Home Care Visit [facility] [address] [place] [address] Denilson Mar LPN MISSED VISIT 02/13/2025 11:45 AM EDT Home Care Visit [facility] [address] [place] [address] Silvia Martinez, PT PT EVALUATION 02/13/2025 Home Care Visit [facility] [address] [place] [address] Maile Rashid, OT TELEPHONE ENCOUNTER 02/10/2025 Home Care Visit [facility] [address] [place] [address] Silvia Martinez, PT CASE COMMUNICATION 02/10/2025 Home Care Visit [facility] [address] [place] [address] Maile Rashid, OT TELEPHONE ENCOUNTER 02/10/2025 Home Care Visit [facility] [address] [place] [address] Maile Rashid, OT TELEPHONE ENCOUNTER 02/07/2025 10:45 AM EDT Home Care Visit [facility] [address] [place] [address] Venessa An RN SN OASIS START OF CARE (SOC) 02/07/2025 Plan of Care Documentation [facility] [address] [place] [address] 02/01/2025 Telephone [facility] [facility] [address] [place] [address] Gabby Bell MD Patient Returned Call 02/01/2025 Orders Only [facility] [address] [place] [address] Homehealth, Interface Provider, 01/31/2025 Telephone [facility] [address] 3rd Floor, [address] [place] [address] Katie Jensen cardiomems from Last 3 Months Immunizations Immunization Administration Dates Next Due COVID-19 (Pre-06/15) Pfizer Vaccine, mRNA, PF 04/14/2021,10/20/2020,09/27/2020 DT 01/23/2003 INFLUENZA, SPLIT VIRUS, TRIV ALENT W/ PRESERVATIVE IM 06/10/2017,06/16/2016,06/27/2009 Influenza High-Dose Quadriva lent Preservative Free IM 05/24/2023,05/21/2022 Influenza High-Dose Trivalen t Preservative Free IM 06/16/2019 Influenza Quadrivalent Adjuv anted Preservative Free IM 05/30/2021 Influenza Quadrivalent Prese rvative Free IM 05/13/2016,05/24/2015,08/10/2014,06/17 Influenza Quadrivalent w/ Pr eservative IM 05/30/2021 Influenza Trivalent Adjuvant ed Preservative free IM 06/22/2018 Influenza trivalent preserva tive free intradermal 07/30/2012 Influenza, Unspecified Formulation 06/01,07/20/2007,06/17/2005,06/23,07/11/2002,09/02/2001 Novel [id number], Injectable 08/14/2009 Pneumococcal conjugate PCV13 04/22/2021,09/10/19 18 Pneumococcal polysaccharide PPSV23 06/18/2021,,07/20/2007 RSV Vaccine (monovalent, adjuvanted) 05/24/2023 Td (adult),2 Lf Tetanus Toxo id, PF, Adsorbed 04/22/2021 Td, unspecified formulation 03/07/2019, 3 Tdap 07/20/2007 Zoster live 07/27/2015 Zoster recombinant 05/30/2021,05/30/2021 Family History Medical History Relation Comments Heart disease Father Cirrhosis Mother Relation Status Comments Father (Age 81) Mother (Age young, in 30s) Social History Tobacco Use Types Packs/Day Years Used Date Smoking Tobacco: Never Smokeless Tobacco: Never Tobacco Cessation:Counseling Given: Not Answered Alcohol Use Standard Drinks/Week Comments Not Currently [...] 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 Not on file Last Filed Vital Signs Vital Sign Reading Time Taken Comments Blood Pressure 120/60 03/15/2025 3:39 PM EDT Pulse 74 03/15/2025 3:39 PM EDT Temperature 36.6 C (97.9 F) 02/27/2025 12:01 PM EDT Respiratory Rate 16 02/27/2025 12:0 1 PM EDT Oxygen Saturation 97% 03/15/2025 3:39 PM EDT Inhaled Oxygen Concentration 40% 11:00 PM EDT Weight 109.4 kg (241 lb 3.2 oz) 03/15/2025 3:39 PM EDT Height 165.1 cm (5' 5 ) 02/16/2025 2:09 PM EDT Body Mass Index 40.14 02/16/2025 2:09 PM EDT Plan of Treatment Upcoming Encounters Date Type Department Care Team (Late st Contact Info) Description 05/25/2025 4:30 PM EDT Office Visit [facility] Rhe[facility]ology [address] [place] [address] Emily Ireland MD 22 [facility], [address] [place] [address] [email or web address] 05/31/2025 10:20 AM EDT Office Visit [facility] [address] [facility] [address] [place] [address] Gabby Bell MD 15 [facility] [address] [place] [address] 06/12/2025 12:40 PM EDT Office Visit [facility] [address] [place] [address] 3rd Floor, [address] [place] [address] Goran Swartz MD 22 [facility], [address] [address] 08/29/2025 10:20 AM EST Office Visit [address] 3rd [facility], [address] [address] Goran Swartz MD [address] [place] [address] 09/18/2025 1:20 PM EST Office Visit [facility] [address] [place] [address] Kit Anthony DO 22 [place] [address] Health Maintenance Due Date Last Done Comments DEPRESSION SCREENING 1962 MAMMOGRAM 1992 COLOGUARD 01/01/1997 COLONOSCOPY 01/01/1997 COLORECTAL CANCER SCREENING 01/01/1997 FIT TEST 01/01/1997 FOBT 01/01/1997 SIGMOIDOSCOPY 01/01/1997 VIRTUAL COLONOSCOPY 01/01/1997 ZOSTER VACCINES (3 of 3) 07/25/2021 021, 05/30/2021, 07/27/2015 DIABETIC EYE EXAM 10/13/2024 10/13/2023 TSH LEVEL 11/01/2024 11/02/2023, 04/0 10/2022, 09/17/2022, Additional history exists INFLUENZA VACCINE (#1) 2025 , 05/24/2023, 05/24/2023, Additional history exists COVID-19 VACCINE ( season) 2025 06/04/2024, 11/17/2023, 05/24/2023, Additional history exists BLOOD PRESSURE 09/15/2025 03/15/2025 HEMOGLOBIN A1C 09/15/2025 03/15/2025, 1002/2024, 02/19/2024, Additional history exists CREATININE LEVEL 02/16/2026 02/16/2025, 11/2023, 04/12/2024, Additional history exists Adult Td,Tdap Booster 04/22/2031 04/22/2021 , 03/07/2019, 07/20/2007, Additional history exists OSTEOPOROSIS SCREENING INITIAL (ONE-TIME) Completed 01/31/2021 PNEUMOCOCCAL VACCINES (50+ years) Completed 06/18/2021, 04/22/2021, 09/10/2017, Additional history exists HEPATITIS C SCREENING Completed 09/17/2022, 023 RSV VACCINE Completed 05/24/2023 SMOKING STATUS SCREENING (Once After 26 Yrs) Completed 02/16/2025 HEPATITIS A VACCINES Aged Out No long er eligible based on patient's age to complete this topic HIB VACCINES Aged Out No longer eligi ble based on patient's age to complete this topic MENINGOCOCCAL VACCINES (ACWY) Aged Out No longer eligible based on patient's age to complete this topic MENINGOCOCCAL VACCINES (B) Aged Out N o longer eligible based on patient's age to complete this topic Medical Devices Implanted Type Area Pier Master Device Identifier Shelf Expiration Date Model / Serial / Lot Sensor Pulmonary Artery Delivery System Cardiomems - [id number] Implanted:Qty : 1 on 01/03/2021 by Ramon Foy MD at [facility] Implantable Monitor N/A: Chest [employer] [id number] 10/10/2022 PATIENT SYSTEM / [id number] / Prosthetic Joint Prosthetic Joint Bilater al: Knee Procedures Procedure Name Priority Date/Time Associated Diagnosis Comments POCT HEMOGLOBIN A1C Routine 03/15/2025 4 :00 PM EDT Type 2 diabetes mellitus with complication, with long-term current use of insulin AMB REFERRAL TO [facility] PHYSICAL THERAPY Routine 03/03/2025 3:32 PM EDT Other closed nondisplaced fracture of proximal end of left humerus with routine healing, subsequent encounter BASIC METABOLIC PANEL Routine 02/16/2025 3:09 PM EDT Chronic renal impairment, stage 4 (severe) TSH WITH REFLEX Routine 11/02/2023 5:23 AM EDT HEPATITIS C ANTIBODY, QUALITATIVE Routine 09/17/2022 12:46 PM EST Medicare annual wellness visit, subsequent BD DXA AXIAL (SPINE) WITH HIP Routine 01/31/2021 2:43 PM EDT assisted current use of systemic steroids Anticoagulated Postmenopausal from Last 3 Months or Most Recently Relevant to Health Maintenance Results * (ABNORMAL) POCT Hemoglobin A1c (03/15/2025 4:00 PM EDT) Hemoglobin A1c 6.2(A) 4.2 - 5.6 % Other 03/15/2025 4:00 PM EDT Kit Anthony DO POINT OF CARE TEST ORDERABLES Fi nal Result * Ambulatory referral to [facility] Physical Therapy (03/03/2025 3:32 PM EDT) Other Gabby Bell MD AMB [facility] REFERRALS Final Resu lt * (ABNORMAL) Basic metabolic panel (02/16/2025 3:09 PM EDT) SODIUM 134 133 - 146 mmol/L [facility] CHLORIDE 94(L) 96 - 108 mmol/L [facility] POTASSIUM 3.8 3.3 - 5.1 mmol/L [facility] CO2 26 21 - 35 mmol/L [facility] BUN 43(H) 6 - 19 mg/dL [facility] CREATININE 1.90(H) 0.5 - 1.5 mg/dL [facility] GLUCOSE 107(H) 70 - 99 mg/dL [facility] CALCIUM 12.0(H) 8.4 - 10.3 mg/dL [facility] EGFR 28(L) >59 mL/min/1.7 3m2 [facility] Comment:Estimated glomerular filtration rate calculated using the CKD-EPI refit equation. ANION GAP 18 10 - 20 mmol/L [facility] Blood 02/16/2025 3:09 PM EDT 02/16/2025 3:15 PM EDT us Gabby Bell MD LAB BLOOD ORDERABLES Final R esult Performing Organization Address City/[facility]/ZIP Co de Phone Number [address] [address] * TSH with reflex (11/02/2023 5:23 AM EDT) TSH 1.57 0.27 - 4.20 uIU/mL [facility] Blood 11/02/2023 5:23 AM EDT 11/02/2023 5:59 AM EDT Lila Ventura DO LAB BLOOD ORDERABLES Final Re sult Performing Organization Address [facility] Co de Phone Number [address] [address] * Hepatitis C antibody, qualitative (09/17/2022 12:46 PM EST) HCV NON-REACTIV E NON-REACTI VE [facility] Blood 09/17/2022 12:4 6 PM EST 09/17/2022 1:02 PM EST us Gabby Bell MD LAB BLOOD ORDERABLES Final R esult Performing Organization Address [facility] Co de Phone Number [address] [address] * BD DXA AXIAL (SPINE) WITH HIP (01/31/2021 2:43 PM EDT) Anatomical Region Laterality Modality Bone Density Bone Density 01/31/2021 3:20 PM EDT Impressions 01/31/2021 3:22 PM EDT Normal lumbar spine and bilateral hip bone density with mild decrease in the lumbar spine and right hip bone density since 2001. Narrative 01/31/2021 3:22 PM EDT COMPARISON: 03/14/2002 report. BONE DENSITY FINDINGS: History: This is a 71-year-old postmenopausal female. Evaluation of the lumbar spine and hips was performed and felt to be technically adequate. Lumbar dextroscoliosis. Total bone mineral density in the L1-L4 vertebral bodies was calculated at 1.223 gm/cm2 with a T-score of 1.6 falling within the WHO classification of normal. Z-score of 3.6.19.6% decrease in bone density which is statistically significant. Total bone mineral density in the right hip/femoral neck was calculated at 1.030 gm/cm2 with a T-score of 0.7 falling within the WHO classification of normal. Z-score of 2.2. 18.1% decrease in bone density which is statistically significant. Total bone mineral density in the left hip/femoral neck was calculated at 1.177 gm/cm2 with a T-score of 1.9 falling within the WHO classification of normal. Z-score of 3.4. 2.6% decrease in bone density which is statistically significant. Procedure Note Brandt Webb MD - 01/31/2021 COMPARISON: 03/14/2002 report. BONE DENSITY FINDINGS: History: This is a 71-year-old postmenopausal female. Evaluation of the lumbar spine and hips was performed and felt to betechnically adequate. Lumbar dextroscoliosis. Total bone mineral density in the L1-L4 vertebral bodies was calculated at1.223 gm/cm2 with a T-score of 1.6 falling within the WHO classificationof normal. Z- score of 3.6.19.6% decrease in bone density which isstatistically significant. Total bone mineral density in the right hip/femoral neck was calculated at1.030 gm/cm2 with a T-score of 0.7 falling within the WHO classificationof normal. Z- score of 2.2. 18.1% decrease in bone density which isstatistically significant. Total bone mineral density in the left hip/femoral neck was calculated at1.177 gm/cm2 with a T-score of 1.9 falling within the WHO classificationof normal. Z-score of 3.4. 2.6% decrease in bone density which isstatistically significant. IMPRESSION: Normal lumbar spine and bilateral hip bone density with mild decrease inthe lumbar spine and right hip bone density since 2001. Emily HARDEN BD BONE DENSITY DEXA Final Result from Last 3 Months or Most Recently Relevant to Health Maintenance Insurance BUX MEDEX SUPPLEMENT MEDICARE PART A & B BUX MEDEX SUPPLEMENT MEDICARE PART A & B [place] MEDEX SUPPLEMENT MEDICARE PART A & B BUX MEDEX SUPPLEMENT MEDICARE PART A & B BUX MEDEX SUPPLEMENT MEDICARE PART A & B BUX MEDEX SUPPLEMENT MEDICARE PART A & B BUX MEDEX SUPPLEMENT MEDICARE PART A & B BUX MEDEX SUPPLEMENT MEDICARE PART A & B BUX MEDEX SUPPLEMENT MEDICARE PART A & B Advance Directives For more information, please contact: [phone] (9AM - 5PM 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 12/10/2020 4:29 PM MOLST 02/06/2025 MOLST 01/21/2025 * Full Code (Latest Code Status on File) Date Activated Date Inactivated Comments 11/01/2023 9:38 PM Question Answer Comments Code Status Confirmed With: Patient * Full Code Date Activated Date Inactivated Comments 07/31/2023 11:29 PM 11/01/2023 9:38 PM Question Answer Comments Code Status Confirmed With: Patient * Full Code Date Activated Date Inactivated Comments 03/17/2023 8:06 PM 07/31/2023 11:29 PM Question Answer Comments Code Status Confirmed With: Patient Code Status Communicated To: Inpatient Attending * Full Code Date Activated Date Inactivated Comments 11/05/2021 1:41 AM 03/17/2023 8:06 PM Question Answer Comments Code Status Confirmed With: Patient * Full Code Date Activated Date Inactivated Comments 01/03/2021 12:13 PM 11/05/2021 1:41 AM Question Answer Comments Code Status Confirmed With: Patient Care Teams Com Writer Relationship Specialty Start Date End Date Gabby Bell MD [address] [place], [place] [id number] PCP - General Family Medicine 04/23/21 Gabby Bell MD [address] [facility] [address] [place] [address] [email or web address] Insurance Assigned Provider 11/28/23 Shaji Zeng MD 300 [facility] [address] [place] [address] Orthopedic Surgery 02/08/25 Additional Source Comments The information contained in this document represents components of the legal health record. It is not the complete legal health record.[facility]
--- OUTSIDE RECORDS SUMMARY | 2025-05-01 15:32 | XMS_ITS | Clinical Summary ---
Author Organization [facility] Address [address] [place] [address] Care Team Providers Care Rn Progressive Care Unit Name Role Phone Cole Ott MD Primary Care Provider + [phone] Allergies Active Allergy Reactions Criticality Noted Date Comments Latex 12/16/2017 Vitamin D (Calciferol) 12/16/2017 Medications Medication Sig Dispensed Refills Start Date End Date Status allopurinol (ZYLOPRIM) 300 MG tablet 0 10/12/2017 Active atorvastatin (LIPITOR) tablet 40 mg 0 10/12/2017 Active metFORMIN (GLUCOPHAGE) tablet 500 mg TAKE 2 TABLETS BY MOUTH TWICE A DAY 0 09/08/2017 Active MYRBETRIQ 50 MG TB24 0 10/12/2017 Acti ve ALBUTEROL SULFATE IN Inhale into the lungs. 0 Active AMITRIPTYLINE HCL PO Take by mouth. 0 Active BUPROPION HCL ER, SR, PO Take by mouth. 0 Active CALCIUM PO Take by mouth. 0 Active DEXAMETHASONE, BREANA, PO Take by mouth. 0 Active glipiZIDE (GLUCOTROL) tablet 10 mg Take 10 mg by mouth 2 (two) times a day before breakfast and dinner. 0 Active Multiple Vitamins-Minerals (MULTIVITAMIN ADULT PO) Take by mouth. 0 Active Potassium (POTASSIMIN PO) Take by mouth. 0 Active Calcitriol (ROCALTROL PO) Take by mouth. 0 Active Milnacipran HCl (SAVELLA PO) Take by mouth. 0 Active Levothyroxine Sodium (SYNTHROID PO) Take by mouth. 0 Active Active Problems Problem Noted Date Diagnosed Date Urinary frequency 12/17/2017 Cystitis, interstitial 12/17/2017 Family History Medical History Relation Name Comments Prostate cancer Father Heart disease Other Relation Name Status Comments Father Other Social History Tobacco Use Types Packs/Day Years Used Date Smoking Tobacco: Never Smokeless Tobacco: Never Alcohol Use Standard Drinks/Week Comments Yes 0 (1 standard drink = 0.6 oz pur e alcohol) Sex and Gender Information Value Date Recorded Sex Assigned at Not on file Gender Identity Not on file Sexual Orientation Not on file Last Filed Vital Signs Vital Sign Reading Time Taken Comments Blood Pressure - - Pulse - - Temperature - - Respiratory Rate - - Oxygen Saturation - - Inhaled Oxygen Concentration - - Weight 132.9 kg (293 lb) 12/16/2017 4:28 PM EDT Height 162.6 cm (5' 4 ) 12/16/2017 4:28 PM EDT Body Mass Index 50.29 12/16/2017 4:28 PM EDT Plan of Treatment Health Maintenance Due Date Last Done Comments Hepatitis C Screening 1950 COVID-19 Vaccine (#1) 1950 Depression Screening 1964 Preventative Health Evaluation 01/01/1970 DTap / Tdap / Td (1 - Tdap) 01/01/1971 Colon Cancer Screening (Colonoscopy) 01/01/1997 Breast Cancer Screening (Mammogram) 01/01/2002 Shingrix-Zoster Vaccine (1 of 2) 01/01/2002 Fall Risk Assessment 01/01/2017 Osteoporosis Screening (DEXA Scan) 01/01/2017 Pneumococcal Vaccine (1 of 1 - PCV) 01/01/2017 Influenza Vaccine (#1) 2025 RSV Adult > 60+ Yrs or Pregn ant (1 - 1-dose 75+ series) 01/01/2027 Hepatitis B Vaccines Aged Out No long er eligible based on patient's age to complete this topic RSV Ped < 20 months Aged Out No longe r eligible based on patient's age to complete this topic Care Teams Rn Progressive Care Unit Relationship Specialty Start Date End Date Cole Ott [facility] [place] [address] PCP - General Family Medicine 12/15/17
--- OUTSIDE RECORDS SUMMARY | 2025-05-01 15:32 | XMS_ITS | Encounter Summary ---
Author Organization [facility] Address [address] [place] [address] [place] [address] Phone Care Team Providers Care Banquet Lead Name Role Phone Gabby Bell MD Primary Care Provider [phone] Gabby Bell MD Unavailable [phone] Diana Wren OT Unavailable [phone] Diana Wren OT Unavailable [phone] Diana Wren OT Unavailable [phone] Shaji Zeng MD Unavailable [phone] Encounter Details Date Type Department Care Team (Late st Contact Info) Description 07/01/2021 Procedure Pass Non-Invasive Cardiology [address] [place] [address] Social History Tobacco Use Types Packs/Day Years [...] 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 [place] [address] 06/12/2025 12:40 PM EDT Office Visit [facility] [address] [facility] 3rd Floor, [address] [place] [address] Goran Swartz MD 22 [facility], [address] [address] 08/29/2025 10:20 AM EST Office Visit [facility] [address] 3rd Floor, [address] [place] [address] Goran Swartz MD [address] [place] [address], [address] [address] 09/18/2025 1:20 PM EST Office Visit [facility] [address] [place] [address] Kit Anthony DO 22 [place] [address] documented as of this encounter Visit Diagnoses [...] documented as of this encounter Care Teams Banquet Lead Relationship Specialty Start Date End Date Gabby Bell MD [address] [address] [email or web address] PCP - General Family Medicine 04/23/21 Gabby Bell MD [address] [address] [email or web address] Insurance Assigned Provider 11/28/23 Diana Wren, OT [address] [place] [address] [email or web address] Transitions Motorcycle MechanicHvac Project Manager Therapy 03/18/23 Diana Wren, OT [address] [place] [address] [email or web address] Transitions Motorcycle MechanicHvac Project Manager Therapy 08/03/23 Diana Wren, OT [address] [place] [address] Transitions Motorcycle MechanicHvac Project Manager Therapy 11/02/2307/17 Shaji Zeng MD [address] [place], [place] [address]anitra Mili [address] [address] Orthopedic Surgery 02/08/25 documented as of this encounter Additional Source Comments The information contained in this document represents components of the legal health record. It is not the complete legal health record.[facility]
--- OUTSIDE RECORDS SUMMARY | 2025-05-01 15:32 | XMS_ITS | Encounter Summary ---
Author Organization [facility] Address [address] [email or web address] [facility] [place] [address] [place] [address] Phone Care Team Providers Care Glass Tube Bender Name Role Phone Gabby Bell MD Primary Care Provider [phone] Gabby Bell MD Unavailable [phone] Diana Wren OT Unavailable [phone] Diana Wren OT Unavailable [phone] Diana Wren OT Unavailable [phone] Shaji Zeng MD Unavailable [phone] Encounter Details Date Type Department Care Team (Late st Contact Info) Description 11/29/2022 Procedure Pass [facility], Ct Scan - [address] [id number] Social History Tobacco Use Types Packs/Day Years [...] high school, GED, job training, learning the [place] language, technical skills, or developing parenting skills)? 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 Wish to be (Past 1 Month) No 023 4:26 PM EDT Mary Black, RN 2. Non-Specific Active Suici harvey Thoughts (Past 1 Month) No 11/29/2022 4:26 PM EDT Mary Black , RN 6. Suicidal Behavior (Lifetime) No 3 4:26 PM EDT Mary Black, RN documented as of this encounter Plan of Treatment Upcoming Encounters Date Type Department Care Team (Late st Contact Info) Description 05/25/2025 4:30 PM EDT Office Visit [facility] Rheumatology [address] [place] [address] Emily Ireland MD 22 [facility], [address] [place] [address] [email or web address] 05/31/2025 10:20 AM EDT [facility] [address] [facility] [address] [place] [address] Gabby Bell MD 15 [facility] [address] [place] [address] 06/12/2025 12:40 PM EDT Office Visit [facility] [address] [facility] 3rd Floor, [address] [place] [address] Goran Swartz MD 22 [facility], [address] [address] 08/29/2025 10:20 AM EST Office Visit [facility] [address] [facility] 3rd [facility], [address] [place] [address] Goran Swartz MD [address] [place] [address], [address] [address] 09/18/2025 1:20 PM EST Office Visit [facility] [address] [place] [address] Kit Anthony DO 22 [place] [address] documented as of this encounter Visit Diagnoses Not on filedocumented in this encounter Additional Health Concerns Infection Onset Date Last Indicated Resolved Time CoV-Risk 12/12/2022 12/12/2022 12/23/2022 1:22 AM EDT CoV-Risk Comment:Per note documentation 11/01/2023 11/01/2023 12:21 PM EDT documented as of this encounter Care Teams Glass Tube Bender Relationship Specialty Start Date End Date Gabby Bell MD [address] [address] PCP - General Family Medicine 04/23/21 Gabby Bell MD [address] [address] Insurance Assigned Provider 11/28/23 Diana Wren, OT [address] [place] [address] Transitions Freight Car Cleaner [employer] Hand Therapy 03/18/23 Diana Wren, OT [address] [place] [address] Transitions Freight Car Cleaner [employer] [facility] Therapy 08/03/23 Diana Wren, OT [address] [place] [address] Transitions Freight Car Cleaner [employer] Hand Therapy 11/02/2307/17 Shaji Zeng MD [facility] [place] Garces [address] [address] Orthopedic Surgery 02/08/25 documented as of this encounter Additional Source Comments The information contained in this document represents components of the legal health record. It is not the complete legal health record.[facility]
== END 2025-05-01 14:01 | disposition home or self-care (01) ==
LOC: HO.PMC 13:07
PROVIDERS: PCP Family Medicine; Referring Provider Physical Medicine & Rehabilitation; Visit Provider Internal Medicine
DX: M48.061 Spinal stenosis, lumbar region without neurogenic claudication (principal); M46.1 Sacroiliitis, not elsewhere classified
CPT/HCPCS: 99204

== ENCOUNTER → 2025-05-01 13:06 | Outpatient (BNVA) | payer MEDICARE, SELFPAY | PROVIDERS: PCP Family Medicine; Referring Provider Physical Medicine & Rehabilitation; Visit Provider Internal Medicine | DX: M48.061 Spinal stenosis, lumbar region without neurogenic claudication (principal); M46.1 Sacroiliitis, not elsewhere classified | CPT/HCPCS: 99202 ==